=== PATIENT | female | born 1990 | race Caucasian/White ===

== ENCOUNTER → 2017-01-03 | Outpatient (CLI) | payer OTHER | END | disposition home or self-care (01) | LOC: LABWHC1 10:12 | DX: O99.212 Obesity complicating pregnancy, second trimester (principal); Z3A.24 24 weeks gestation of pregnancy | CPT/HCPCS: 36415; 82950; 83036; 84443; 86850 ==

== ENCOUNTER → 2017-02-15 | Outpatient (CLI) | payer OTHER ==
[2017-02-15 14:32] LABS: Glucose 3 Hour, Gest 118 mg/dL
== END | disposition home or self-care (01) ==
LOC: LABWHC1 08:22
PROVIDERS: ATTEND Nurse Practitioner
DX: O09.93 Supervision of high risk pregnancy, unspecified, third trimester (principal); O99.810 Abnormal glucose complicating pregnancy; Z3A.00 Weeks of gestation of pregnancy not specified
CPT/HCPCS: 36415; 82951; 82952

== ENCOUNTER 2018-11-04 08:49 | Inpatient (IN) | payer OTHER ==
[2018-11-04] MEDS ORDERED: ONDANSETRON 4 MG/2 ML VIAL IVP STA (09:13)
[2018-11-04] MEDS ORDERED: SODIUM CHLORIDE 0.9% 500 ML 500 ML IV STA (09:13)
[2018-11-04] MEDS ORDERED: SODIUM CHLORIDE 0.9% 1,000 ML IV STA (09:13)
--- NOTE | 2018-11-04 09:24 | ED ---
General Adult HPI - General Chief complaint: Nausea/Vomiting/Diarrhea Stated complaint: Urogenital & Vomiting Time Seen by Provider: 11/04/18 08:50 Source: patient, RN notes reviewed Mode of arrival: ambulatory Limitations: no limitations - History of Present Illness Initial comments: This is a 27-year-old female presents emergency Department complaining of a four-day history of nausea and vomiting. Patient states she does not any abdominal pain but she's been unable to keep any food down. Patient states on occasion she is able to keep down some water. Patient also states she would like her intrauterine contraceptive device removed. Patient states she has an appointment to have it removed tomorrow but she would like it removed today. Patient states it is a little uncomfortable but has been uncomfortable for quite a while. Patient denies any change in the discomfort. Patient denies any discharge. Patient denies any fever chills. Patient denies any dysuria hematuria urinary frequency. Patient states she took a test, she is not . - Related Data Home Medications Medication Instructions Recorded Confirmed Lisinopril [Zestril] 1.25 mg PO DAILY 11/04/18 11/04/18 Melatonin 5 mg PO HS PRN 11/04/18 11/04/18 Allergies Allergy/AdvReac Type Severity Reaction Status Date / Time No Known Allergies Allergy Verified 11/04/18 09:15 Review of Systems ROS Statement: Those systems with pertinent positive or pertinent negative responses have been documented in the HPI. ROS Other: All systems not noted in ROS Statement are negative. Past Medical History Past Medical History: Hearing Disorder / Deafness, Musculoskeletal Disorder Additional Past Medical History / Comment(s): [place], muscular dystrophy History of Any Multi-Drug Resistant Organisms: None Reported Past Surgical History: Ear Surgery, Tonsillectomy Past Psychological History: No Psychological Hx Reported, Depression Smoking Status: Current every day smoker Past Alcohol Use History: Occasional Past Drug Use History: None Reported General Exam - General Exam Comments Initial Comments: GENERAL: Patient is well-developed and well-nourished. Patient is nontoxic and well- hydrated and is in mild distress. ENT: Neck is soft and supple. No significant lymphadenopathy is noted. Oropharynx is clear. Moist mucous membranes. Neck has full range of motion without eliciting any pain. were felt. EYES: The sclera were anicteric and conjunctiva were pink and moist. Extraocular movements were intact and pupils were equal round and reactive to light. Eyelids were unremarkable. PULMONARY: Unlabored respirations. Good breath sounds bilaterally. No audible rales rhonchi or wheezing was noted. CARDIOVASCULAR: There is a regular rate and rhythm without any murmurs gallops or rubs. ABDOMEN: Soft and nontender with normal bowel sounds. No palpable organomegaly was noted. There is no palpable pulsatile mass. SKIN: Skin is clear with no lesions or rashes and otherwise unremarkable. NEUROLOGIC: Patient is alert and oriented x3. Cranial nerves II through XII are grossly intact. Motor and sensory are also intact. Normal speech, volume and content. Symmetrical smile. MUSCULOSKELETAL: Normal extremities with adequate strength and full range of motion. No lower extremity swelling or edema. No calf tenderness. LYMPHATICS: No significant lymphadenopathy is noted PSYCHIATRIC: Normal psychiatric evaluation. Limitations: no limitations Course Vital Signs 11/04/18 11/04/18 08:50 11:19 Temperature 97.9 F Pulse Rate 90 84 Respiratory 18 18 Rate Blood Pressure 148/101 132/94 O2 Sat by Pulse 98 100 Oximetry Medical Decision Making - Medical Decision Making Patient is in DKA. Patient received 2-1/2 L of fluid to the emergency department. I also started the patient on insulin drip after I gave the patient insulin bolus Spoke with Dr. Regan she agreed to admit the patient admitted the patient I wrote admitting orders. - Lab Data Result diagrams: 11/04/18 09:37 11/04/18 09:37 Lab Results 11/04/18 11/04/18 11/04/18 Range/Units 09:37 09:37 09:37 WBC 11.6 H (3.8-10.6) k/uL RBC 5.81 H (3.80-5.40) m/uL Hgb 16.7 H (11.4-16.0) gm/dL Hct 49.4 H (34.0-46.0) % MCV 84.9 (80.0-100.0) fL MCH 28.8 (25.0-35.0) pg MCHC 33.9 (31.0-37.0) g/dL RDW 16.4 H (11.5-15.5) % Plt Count 296 (150-450) k/uL Neutrophils % 66 % Lymphocytes % 23 % Monocytes % 6 % Eosinophils % 1 % Basophils % 1 % Neutrophils # 7.7 (1.3-7.7) k/uL Lymphocytes # 2.7 (1.0-4.8) k/uL Monocytes # 0.8 (0-1.0) k/uL Eosinophils # 0.2 (0-0.7) k/uL Basophils # 0.1 (0-0.2) k/uL Anisocytosis Slight Sodium 134 L (137-145) mmol/L Potassium 4.8 (3.5-5.1) mmol/L Chloride 99 (98-107) mmol/L Carbon Dioxide 8 L* (22-30) mmol/L Anion Gap 27 mmol/L BUN 9 (7-17) mg/dL Creatinine 0.49 L (0.52-1.04) mg/dL Est GFR (CKD-EPI)AfAm >90 (>60 ml/min/1.73 sqM) Est GFR (CKD-EPI)NonAf >90 (>60 ml/min/1.73 sqM) Glucose 386 H (74-99) mg/dL POC Glucose (mg/dL) (75-99) mg/dL POC Glu Car Barn Laborer ID Calcium 9.5 (8.4-10.2) mg/dL Total Bilirubin 1.3 (0.2-1.3) mg/dL AST 43 H (14-36) U/L ALT 55 H (9-52) U/L Alkaline Phosphatase 139 H (38-126) U/L Total Protein 8.5 H (6.3-8.2) g/dL Albumin 5.0 (3.5-5.0) g/dL Amylase 36 (30-110) U/L Lipase 90 (23-300) U/L Urine Color Urine Appearance (Clear) Urine pH (5.0-8.0) Ur Specific [place] (1.001-1.035) Urine Protein (Negative) Urine Glucose (UA) (Negative) Urine Ketones (Negative) Urine Blood (Negative) Urine Nitrite (Negative) Urine Bilirubin (Negative) Urine Urobilinogen (<2.0) mg/dL Ur Leukocyte Esterase (Negative) Urine RBC (0-5) /hpf Urine WBC (0-5) /hpf Ur Squamous Epith Cells (0-4) /hpf Urine Bacteria (None) /hpf Urine Mucus (None) /hpf Urine Yeast (Budding) (None) /hpf Urine HCG, Qual Not Detected (Not Detectd) Acetone, Qual (Negative) 11/04/18 11/04/18 11/04/18 Range/Units 09:37 09:37 11:32 WBC (3.8-10.6) k/uL RBC (3.80-5.40) m/uL Hgb (11.4-16.0) gm/dL Hct (34.0-46.0) % MCV (80.0-100.0) fL MCH (25.0-35.0) pg MCHC (31.0-37.0) g/dL RDW (11.5-15.5) % Plt Count (150-450) k/uL Neutrophils % % Lymphocytes % % Monocytes % % Eosinophils % % Basophils % % Neutrophils # (1.3-7.7) k/uL Lymphocytes # (1.0-4.8) k/uL Monocytes # (0-1.0) k/uL Eosinophils # (0-0.7) k/uL Basophils # (0-0.2) k/uL Anisocytosis Sodium (137-145) mmol/L Potassium (3.5-5.1) mmol/L Chloride (98-107) mmol/L Carbon Dioxide (22-30) mmol/L Anion Gap mmol/L BUN (7-17) mg/dL Creatinine (0.52-1.04) mg/dL Est GFR (CKD-EPI)AfAm (>60 ml/min/1.73 sqM) Est GFR (CKD-EPI)NonAf (>60 ml/min/1.73 sqM) Glucose (74-99) mg/dL POC Glucose (mg/dL) 328 H (75-99) mg/dL POC Glu Car Barn Laborer ID Becky Bradley Calcium (8.4-10.2) mg/dL Total Bilirubin (0.2-1.3) mg/dL AST (14-36) U/L ALT (9-52) U/L Alkaline Phosphatase (38-126) U/L Total Protein (6.3-8.2) g/dL Albumin (3.5-5.0) g/dL Amylase (30-110) U/L Lipase (23-300) U/L Urine Color Light Yellow Urine Appearance Clear (Clear) Urine pH 5.5 (5.0-8.0) Ur Specific [place] 1.028 (1.001-1.035) Urine Protein 1+ H (Negative) Urine Glucose (UA) 4+ H (Negative) Urine Ketones 4+ H (Negative) Urine Blood Small H (Negative) Urine Nitrite Negative (Negative) Urine Bilirubin Negative (Negative) Urine Urobilinogen 2.0 (<2.0) mg/dL Ur Leukocyte Esterase Trace H (Negative) Urine RBC 6 H (0-5) /hpf Urine WBC 6 H (0-5) /hpf Ur Squamous Epith Cells 1 (0-4) /hpf Urine Bacteria Rare H (None) /hpf Urine Mucus Rare H (None) /hpf Urine Yeast (Budding) Rare H (None) /hpf Urine HCG, Qual (Not Detectd) Acetone, Qual Positive (Negative) Disposition Clinical Impression: Diabetic ketoacidosis, IUD complication Disposition: ADMITTED IP TO THIS HOSP Referrals: Jeromy Dupont MD [Primary Care Provider] - 1-2 days Time of Disposition: 12:06
[2018-11-04 10:01] LABS: Anisocytosis Slight; Basophils # (A) 0.1 k/uL (0-0.2); Basophils % (A) 1 %; Eosinophils # (A) 0.2 k/uL (0-0.7); Eosinophils % (A) 1 %; HCT 49.4 % (34.0-46.0); HGB 16.7 gm/dL (11.4-16.0); Lymphocytes # (A) 2.7 k/uL (1.0-4.8); Lymphocytes % (A) 23 %; MCH 28.8 pg (25.0-35.0); MCHC 33.9 g/dL (31.0-37.0); MCV 84.9 fL (80.0-100.0); Mean Platelet Volume 8.3; Monocytes # (A) 0.8 k/uL (0-1.0); Monocytes % (A) 6 %; Neutrophils # (A) 7.7 k/uL (1.3-7.7); Neutrophils % (A) 66 %; Platelet Count 296 k/uL (150-450); RBC 5.81 m/uL (3.80-5.40); RDW 16.4 % (11.5-15.5); WBC 11.6 k/uL (3.8-10.6)
[2018-11-04 10:02] LABS: African American GFR (CKD) >90 (>60 ml/min/1.73 sqM); Amylase 36 U/L (30-110); Anion Gap 27 mmol/L; Blood Urea Nitrogen 9 mg/dL (7-17); Calcium 9.5 mg/dL (8.4-10.2); Chloride 99 mmol/L (98-107); Glucose 386 mg/dL (74-99); Sodium 134 mmol/L (137-145); Total Bilirubin 1.3 mg/dL (0.2-1.3); Total Protein 8.5 g/dL (6.3-8.2)
[2018-11-04 10:03] LABS: Appearance,Urine Clear (Clear); Bacteria,Urine Rare /hpf; Bilirubin,Urine Negative (Negative); Blood,Urine Small (Negative); Budding Yeast,Urine Rare /hpf; Color,Urine Light Yellow; Glucose,Urine (UA) 4+ (Negative); Leukocyte Esterase,Urine Trace (Negative); Mucus,Urine Rare /hpf; Nitrite,Urine Negative (Negative); PH, Urine 5.5 (5.0-8.0); Protein,Urine 1+ (Negative); RBC,Urine 6 /hpf (0-5); Specific Gravity,Urine 1.028 (1.001-1.035); Squamous Epithelial Cell,Urine 1 /hpf (0-4); WBC,Urine 6 /hpf (0-5)
[2018-11-04 10:06] LABS: Ketones,Urine 4+ (Negative)
[2018-11-04 10:16] LABS: ALT 55 U/L (9-52); AST 43 U/L (14-36); Alkaline Phosphatase 139 U/L (38-126); Carbon Dioxide 8 mmol/L (22-30); Potassium 4.8 mmol/L (3.5-5.1)
[2018-11-04] MEDS ORDERED: ACETAMINOPHEN TAB 500 MG TAB PO STA (10:21)
[2018-11-04] MEDS ORDERED: Magnesium Replacement Protocol 1 EACH MISC MISCELLANE PRN (10:34)
[2018-11-04] MEDS ORDERED: Potassium Replacement Protocol 1 EACH MISC MISCELLANE PRN (10:34)
[2018-11-04] MEDS ORDERED: INSULIN REGULAR BOLUS (FROM DRIP BAG) IV ONE (10:34)
[2018-11-04] MEDS ORDERED: INSULIN REGULAR 100 UNIT in SODIUM CHLORIDE 0.9% 100 ML IV SCH (10:45)
[2018-11-04] MEDS: SODIUM CHLORIDE 0.9% 1,000 ML IV SCH ×2 (11:27→14:38)
[2018-11-04 11:34] LABS: Glucose,Whole Blood 328 mg/dL (75-99)
[2018-11-04] MEDS ORDERED: SODIUM CHLORIDE 0.9% 1,000 ML IV ONE ×2 (11:43→12:52)
[2018-11-04] MEDS ORDERED: SODIUM CHLORIDE 0.9% 1,000 ML IV SCH (12:15)
[2018-11-04 12:19] LABS: Glucose,Whole Blood 274 mg/dL (75-99)
[2018-11-04] MEDS: D5-0.45% NACL WITH KCL 20MEQ/L 1,000 ML IV SCH ×2 (12:37→18:52)
[2018-11-04 13:22] LABS: Glucose,Whole Blood 191 mg/dL (75-99)
--- NOTE | 2018-11-04 13:48 | P.HPIM ---
History of Present Illness H&P Date: 11/04/18 Chief Complaint: Nausea and vomiting This is a 27-year-old white female who reported to the emergency room because of 4 days history of nausea and vomiting. She states that she could not keep her food or drinks down secondary to nausea and vomiting. She has vomited several times. She has been feeling weak and lethargic and dizzy. She denies chest pain or shortness of breath. She denies subjective fever but reports some burning sensation upon urination. She denies hematuria. She denies cough or wheezing. She denies any change in muscular weakness. She has been breathing harder than usual but is not specifically short of breath. She does not have history of known diabetes. At the time of examination patient is in bed, does not appear to be in distress. Review of Systems 10 systems reviewed, pertinent positive and negative findings as in HPI, positive for nausea and vomiting, no chest pain. Past Medical History Past Medical History: Hearing Disorder / Deafness, Musculoskeletal Disorder Additional Past Medical History / Comment(s): [place], muscular dystrophy History of Any Multi-Drug Resistant Organisms: None Reported Past Surgical History: Ear Surgery, Tonsillectomy Past Psychological History: No Psychological Hx Reported, Depression Smoking Status: Current every day smoker Past Alcohol Use History: Occasional Past Drug Use History: None Reported Medications and Allergies Home Medications Medication Instructions Recorded Confirmed Type Lisinopril [Zestril] 1.25 mg PO DAILY 11/04/18 11/04/18 History Melatonin 5 mg PO HS PRN 11/04/18 11/04/18 History Allergies Allergy/AdvReac Type Severity Reaction Status Date / Time No Known Allergies Allergy Verified 11/04/18 09:15 Physical Exam Vitals: Vital Signs Temp Pulse Resp BP Pulse Ox 11/04/18 11:19 84 18 132/94 100 11/04/18 08:50 97.9 F 90 18 148/101 98 Intake and Output 11/03/18 11/04/18 11/04/18 22:59 06:59 14:59 Other: Weight 146.51 kg Constitutional: No acute distress, conversant, pleasant Eyes: Anicteric sclerae, moist conjunctiva ENMT: NC/AT,Oropharynx clear Neck:Supple, FROM, no masses, or JVD Lungs: Clear to auscultation, Clear to percussion, Normal respiratory effort, no accessory muscle use Cardiovascular: Heart regular in rate and rhythm, No murmurs, gallops, or rubs no peripheral edema Abdominal: Soft Nontender, nom distended, no guarding, no rebound or rigidity, Normoactive bowel sounds No hepatomegaly, No splenomegaly, No palpable mass, obese. Skin: Normal temperature, tone, texture, turgor, No induration No subcutaneous nodules, No rash, lesions, No ulcers Extremities:No digital cyanosis No clubbing, Pedal pulses intact and symmetrical Radial pulses intact and symmetrical Normal gait and station, No calf tenderness Psychiatric: Alert and oriented to person, place and time, Appropriate affect Intact judgement Neuro: Muscles Strength 5/5 in all 4 extremities, Sensation to light touch grossly present throughout, Cranial nerves II-XII grossly intact. No focal sensory deficits Results CBC & Chem 7: 11/04/18 09:37 11/04/18 09:37 Labs: Abnormal Lab Results - Last 24 Hours (Table) 11/04/18 11/04/18 11/04/18 Range/Units 09:37 09:37 09:37 WBC 11.6 H (3.8-10.6) k/uL RBC 5.81 H (3.80-5.40) m/uL Hgb 16.7 H (11.4-16.0) gm/dL Hct 49.4 H (34.0-46.0) % RDW 16.4 H (11.5-15.5) % Sodium 134 L (137-145) mmol/L Carbon Dioxide 8 L* (22-30) mmol/L Creatinine 0.49 L (0.52-1.04) mg/dL Glucose 386 H (74-99) mg/dL POC Glucose (mg/dL) (75-99) mg/dL AST 43 H (14-36) U/L ALT 55 H (9-52) U/L Alkaline Phosphatase 139 H (38-126) U/L Total Protein 8.5 H (6.3-8.2) g/dL Urine Protein 1+ H (Negative) Urine Glucose (UA) 4+ H (Negative) Urine Ketones 4+ H (Negative) Urine Blood Small H (Negative) Ur Leukocyte Esterase Trace H (Negative) Urine RBC 6 H (0-5) /hpf Urine WBC 6 H (0-5) /hpf Urine Bacteria Rare H (None) /hpf Urine Mucus Rare H (None) /hpf Urine Yeast (Budding) Rare H (None) /hpf 11/04/18 11/04/18 11/04/18 Range/Units 11:32 12:17 13:20 WBC (3.8-10.6) k/uL RBC (3.80-5.40) m/uL Hgb (11.4-16.0) gm/dL Hct (34.0-46.0) % RDW (11.5-15.5) % Sodium (137-145) mmol/L Carbon Dioxide (22-30) mmol/L Creatinine (0.52-1.04) mg/dL Glucose (74-99) mg/dL POC Glucose (mg/dL) 328 H 274 H 191 H (75-99) mg/dL AST (14-36) U/L ALT (9-52) U/L Alkaline Phosphatase (38-126) U/L Total Protein (6.3-8.2) g/dL Urine Protein (Negative) Urine Glucose (UA) (Negative) Urine Ketones (Negative) Urine Blood (Negative) Ur Leukocyte Esterase (Negative) Urine RBC (0-5) /hpf Urine WBC (0-5) /hpf Urine Bacteria (None) /hpf Urine Mucus (None) /hpf Urine Yeast (Budding) (None) /hpf Assessment and Plan Plan: 1. Acute DKA without coma and diabetes mellitus likely type I: Continue IV fluid resuscitation, normal saline for now, pending pH, continue insulin drip per DKA protocol. 2. Newly diagnosed diabetes, likely type I: Place on insulin drip, she will need insulin at the time of discharge. 3. Anion gap metabolic acidosis: Bicarbonate of 8, continue IV fluids and IV insulin, consider bicarbonate-containing solution pH is below 7. 5. Muscular dystrophy of unknown type: Conservative treatment. 6. essential hypertension: Continue lisinopril 7. Morbid obesity: BMI 50.6, supportive care 8. History of chronic left bundle branch block: No chest pain, monitor on telemetry. 9. Intrauterine device: Follow-up as an outpatient at [facility]. 10. Mild elevation in LFTs likely secondary to hypoperfusion: IV fluid resuscitation, recheck. 11. DVT prophylaxis: SCDs Admit to inpatient ICU Disposition: Home in 2-3 days
[2018-11-04] MEDS ORDERED: MELATONIN 5 MG TABLET PO PRN (13:55)
--- NOTE | 2018-11-04 14:17 | XR ---
EXAMINATION TYPE: XR chest 1V portable DATE OF EXAM: 11/04/2018 COMPARISON: 12/15/2014 HISTORY: Tachypnea TECHNIQUE: Single frontal view of the chest is obtained. FINDINGS: Heart and mediastinum are normal. Lungs are clear of infiltrate. Diaphragm is normal. Bony thorax is normal. There are chest leads. There is small linear density in the right midlung. IMPRESSION: Subsegmental atelectasis in the right lower lobe. This is a change compared to old exam. Normal heart.
[2018-11-04 14:23] LABS: Glucose,Whole Blood 177 mg/dL (75-99)
[2018-11-04 14:31] LABS: Phosphorus 1.2 mg/dL (2.5-4.5); Potassium 2.8 mmol/L (3.5-5.1)
[2018-11-04] MEDS: ACETAMINOPHEN TAB 500 MG TAB PO PRN ×2 (14:43→22:01)
[2018-11-04] MEDS: INSULIN REGULAR 100 UNIT in SODIUM CHLORIDE 0.9% 100 ML IV SCH (15:05)
[2018-11-04] MEDS: POTASSIUM CHLORIDE ER 20 MEQ TAB.ER PO SCH ×3 (15:08→17:03)
[2018-11-04 15:53] LABS: Glucose,Whole Blood 144 mg/dL (75-99)
[2018-11-04 16:24] LABS: Glucose,Whole Blood 128 mg/dL (75-99)
[2018-11-04 17:07] LABS: Glucose,Whole Blood 177 mg/dL (75-99)
[2018-11-04 17:58] LABS: Glucose,Whole Blood 220 mg/dL (75-99)
--- NOTE | 2018-11-04 18:38 | CONS ---
CONSULTATION PULMONARY/CRITICAL CARE CONSULTATION: DATE OF SERVICE: November 04, 2018 HISTORY OF PRESENT ILLNESS: This is a 27-year-old female who presents to the emergency department with complaints of 4 or 5 days of increasing nausea, vomiting, weakness and abdominal cramping. She apparently has not been able to keep much food or any food down, even liquids were difficult to tolerate. The patient was evaluated in the emergency room and was found to have diabetic ketoacidosis. She has no history of diabetes in the past. She never was told that she had diabetes. She does have a father who had diabetes. She denied any fever, chills. There was no chest pain or chest discomfort. She apparently recently took a test that was negative. She denied any urinary complaints. She denied any shortness of breath. HOME MEDICATIONS: Apparently included lisinopril and melatonin. ALLERGIES: Denied. PAST MEDICAL HISTORY: Includes deafness, muscular dystrophy, left bundle branch block, and chronic tobacco dependence. She does drink occasionally. SURGICAL HISTORY: Includes tonsillectomy and ear surgery. SOCIAL HISTORY: Positive for ongoing tobacco use. She drinks occasionally. Denies any illicit drug use. FAMILY HISTORY: Positive for father and a grandfather with diabetes. She does not think they take insulin but rather takes the pills for diabetes. Currently, her most recent bicarbonate concentration was 8 mEq/L, her glucose was 144 mg/dL and her anion gap was 27. The patient is currently not receiving any supplemental oxygen. Her IV is D5 0.45 at 150. Insulin drip is at 7.3 units an hour. A repeat set of labs were just recently sent. REVIEW OF SYSTEMS: CONSTITUTIONAL weakness. NEUROLOGIC negative. HEENT negative. CARDIOVASCULAR negative. PULMONARY negative. GI nausea, vomiting, decreased appetite. negative. RHEUMATOLOGIC negative. IMMUNOLOGIC negative. ENDOCRINOLOGIC negative. DERMATOLOGIC negative. PHYSICAL EXAMINATION: VITAL SIGNS: Current vital signs are reviewed. Temperature 97.6. Heart rate 100. Respiratory rate 22, blood pressure 123/77, mean 92 and saturations on room air 98%. GENERAL: Appears in no acute distress. HEENT examination is grossly unremarkable. Mucous membranes are moist. No oral lesions. NECK: Supple. Full range of motion. No adenopathy. Neck veins are flat. CARDIOVASCULAR examination reveals regular rhythm and rate. S1, S2 normal. Heart rate about 100 beats per minute. No murmur. LUNGS: Reveal clear breath sounds. No wheezes or rhonchi. ABDOMEN: Soft. Bowel sounds are heard. No masses or tenderness. EXTREMITIES are intact. No cyanosis, clubbing, or edema. SKIN: Without rash. NEUROLOGIC examination is brief but nonfocal. A chest x-ray is essentially normal. Maybe some minimal basilar atelectasis. LAB DATA: Reviewed. White count 11.6, hemoglobin 16.7, hematocrit 49.4, platelet count normal. Sodium 138, potassium 2.8, chloride 108. CO2 9, anion gap 21, BUN and creatinine were 7 and 0.49. Current glucose is 144. Calcium 9.5, phosphorus is 1.2. AST 43, ALT 55, total protein 8.5. Urine shows 1+ protein, 4+ glucose, 4+ ketones. Small amount of blood. Leukocyte esterase was trace positive, WBCs were 6, bacteria rare. Urine HCG was negative. Acetone was positive. Medications are reviewed. ASSESSMENT: 1. New onset diabetes with diabetic ketoacidosis. 2. History of muscular dystrophy. 3. Deafness, currently wearing hearing aids. 4. History of left bundle branch block. 5. Occasional alcohol use. 6. Chronic tobacco dependence. PLAN: The patient is receiving the typical DKA protocol. She seemed to be responded very nicely. She is feeling better. We will continue her here in ICU. We will continue to watch the bicarbonate concentration, the glucose concentration and the anion gap. Repeat set of labs were just recently stent. No additional recommendations are made. She will need obviously to see an international organizer in the near future. We will continue to follow up on that urine. She denies any urinary complaints, though. MMODL / IJN: [id number] / [facility]am
[2018-11-04 18:56] LABS: Glucose,Whole Blood 253 mg/dL (75-99)
[2018-11-04] MEDS ORDERED: POTASSIUM CHLORIDE 2 MEQ/ML 20 ML VIAL IVPB STA (19:32)
--- NOTE | 2018-11-04 19:44 | P.PN ---
Progress Note - Text Progress Note Date: 11/04/18 Arrived to the hospital for my shift. During sign-out, was informed of a patient in the ICU. Opened the chart for review where I noticed the patient's potassium of 2.8. Immediately contacted the ICU nurse to hold the Insulin infusion. Ordered K+ 40 mEq IVPB along with Stat BMP and VBG, amongst others. Will continue to follow patient closely.
[2018-11-04 19:45] LABS: African American GFR (CKD) >90 (>60 ml/min/1.73 sqM); Anion Gap 15 mmol/L; Blood Urea Nitrogen 6 mg/dL (7-17); Carbon Dioxide 13 mmol/L (22-30); Chloride 105 mmol/L (98-107); Glucose 232 mg/dL (74-99); Magnesium 1.6 mg/dL (1.6-2.3); Phosphorus 1.5 mg/dL (2.5-4.5); Potassium 3.5 mmol/L (3.5-5.1); Sodium 133 mmol/L (137-145)
[2018-11-04 19:51] LABS: VBG PH 7.22 (7.31-7.41)
[2018-11-04 19:52] LABS: Glucose,Whole Blood 223 mg/dL (75-99)
[2018-11-04] MEDS ORDERED: POTASSIUM CHLORIDE 20 MEQ in WATER FOR INJECTION 1 100ML.BAG IVPB SCH (20:00)
[2018-11-04] MEDS ORDERED: POTASSIUM CHLORIDE ER 20 MEQ TAB.ER PO STA (20:10)
[2018-11-04] MEDS ORDERED: POTASSIUM CHLORIDE 10 MEQ in WATER FOR INJECTION 1 100ML.BAG IVPB ONE (20:10)
[2018-11-04] MEDS ORDERED: Phosphorus Replacement Protoco 1 EACH MISC MISCELLANE PRN (20:11)
[2018-11-04] MEDS: MAGNESIUM SULFATE-D5W PMX 1 GM in DEXTROSE/WATER 1 100ML.BAG IVPB SCH ×2 (20:34→21:35)
[2018-11-04 21:13] LABS: Glucose,Whole Blood 305 mg/dL (75-99)
[2018-11-04 22:07] LABS: Glucose,Whole Blood 349 mg/dL (75-99)
[2018-11-04] MEDS: POTASSIUM PHOSPHATE 10 MMOL in SODIUM CHLORIDE 0.9% 250 ML IV SCH (22:41)
[2018-11-04 23:05] LABS: Glucose,Whole Blood 302 mg/dL (75-99)
[2018-11-05 00:13] LABS: Glucose,Whole Blood 273 mg/dL (75-99)
[2018-11-05] MEDS: POTASSIUM PHOSPHATE 10 MMOL in SODIUM CHLORIDE 0.9% 250 ML IV SCH ×6 (00:46→23:44)
[2018-11-05 00:50] LABS: African American GFR (CKD) >90 (>60 ml/min/1.73 sqM); Anion Gap 12 mmol/L; Blood Urea Nitrogen 4 mg/dL (7-17); Calcium 8.3 mg/dL (8.4-10.2); Carbon Dioxide 14 mmol/L (22-30); Chloride 106 mmol/L (98-107); Glucose 286 mg/dL (74-99); Magnesium 2.1 mg/dL (1.6-2.3); Phosphorus 1.6 mg/dL (2.5-4.5); Potassium 3.8 mmol/L (3.5-5.1); Sodium 132 mmol/L (137-145)
[2018-11-05 01:08] LABS: Glucose,Whole Blood 278 mg/dL (75-99)
[2018-11-05] MEDS: D5-0.45% NACL WITH KCL 20MEQ/L 1,000 ML IV SCH ×2 (01:33→08:25)
[2018-11-05 02:04] LABS: Glucose,Whole Blood 248 mg/dL (75-99)
[2018-11-05 04:11] LABS: Glucose,Whole Blood 239 mg/dL (75-99)
[2018-11-05 04:11] LABS: Glucose,Whole Blood 239 mg/dL (75-99)
[2018-11-05 04:34] LABS: Basophils # (A) 0.1 k/uL (0-0.2); Basophils % (A) 1 %; Eosinophils # (A) 0.2 k/uL (0-0.7); Eosinophils % (A) 3 %; HCT 42.2 % (34.0-46.0); HGB 14.6 gm/dL (11.4-16.0); Lymphocytes # (A) 2.4 k/uL (1.0-4.8); Lymphocytes % (A) 31 %; MCH 28.9 pg (25.0-35.0); MCHC 34.6 g/dL (31.0-37.0); MCV 83.7 fL (80.0-100.0); Mean Platelet Volume 7.9; Monocytes # (A) 0.5 k/uL (0-1.0); Monocytes % (A) 6 %; Neutrophils # (A) 4.6 k/uL (1.3-7.7); Neutrophils % (A) 58 %; Platelet Count 230 k/uL (150-450); RBC 5.04 m/uL (3.80-5.40); WBC 7.9 k/uL (3.8-10.6)
[2018-11-05] MEDS: INSULIN REGULAR 100 UNIT in SODIUM CHLORIDE 0.9% 100 ML IV SCH ×3 (04:48→12:12)
[2018-11-05 04:49] LABS: ALT 44 U/L (9-52); AST 29 U/L (14-36); African American GFR (CKD) >90 (>60 ml/min/1.73 sqM); Albumin 3.3 g/dL (3.5-5.0); Alkaline Phosphatase 107 U/L (38-126); Anion Gap 11 mmol/L; Blood Urea Nitrogen 3 mg/dL (7-17); Calcium 8.4 mg/dL (8.4-10.2); Carbon Dioxide 15 mmol/L (22-30); Chloride 108 mmol/L (98-107); Glucose 222 mg/dL (74-99); Phosphorus 1.4 mg/dL (2.5-4.5); Potassium 3.9 mmol/L (3.5-5.1); Sodium 134 mmol/L (137-145); Total Bilirubin 0.9 mg/dL (0.2-1.3); Total Protein 5.9 g/dL (6.3-8.2)
[2018-11-05 05:23] LABS: Glucose,Whole Blood 202 mg/dL (75-99)
[2018-11-05 06:06] LABS: Glucose,Whole Blood 201 mg/dL (75-99)
[2018-11-05 07:04] LABS: Glucose,Whole Blood 184 mg/dL (75-99)
[2018-11-05 08:29] LABS: Glucose,Whole Blood 252 mg/dL (75-99)
[2018-11-05 08:41] LABS: African American GFR (CKD) >90 (>60 ml/min/1.73 sqM); Anion Gap 12 mmol/L; Blood Urea Nitrogen 3 mg/dL (7-17); Calcium 8.4 mg/dL (8.4-10.2); Carbon Dioxide 16 mmol/L (22-30); Chloride 108 mmol/L (98-107); Glucose 250 mg/dL (74-99); Magnesium 1.8 mg/dL (1.6-2.3); Phosphorus 1.8 mg/dL (2.5-4.5); Potassium 3.9 mmol/L (3.5-5.1); Sodium 136 mmol/L (137-145)
[2018-11-05] MEDS ORDERED: LISINOPRIL 2.5 MG TAB PO SCH (09:00)
[2018-11-05 10:08] LABS: Glucose,Whole Blood 243 mg/dL (75-99)
[2018-11-05 10:08] LABS: Glucose,Whole Blood 250 mg/dL (75-99)
[2018-11-05 10:55] LABS: Hemoglobin A1C 11.5 % (4.0-6.0)
[2018-11-05 11:03] LABS: Glucose,Whole Blood 237 mg/dL (75-99)
[2018-11-05 11:29] VITALS: BMI 45.2
[2018-11-05 12:08] LABS: Glucose,Whole Blood 250 mg/dL (75-99)
[2018-11-05] MEDS: INSULIN DETEMIR (LEVEMIR) 100 UNIT/ML SYR SQ SCH (12:24)
[2018-11-05] MEDS: INSULIN ASPART (NovoLOG) 100 UNIT/ML VIAL SQ SCH ×5 (12:52→20:42)
[2018-11-05 13:18] LABS: African American GFR (CKD) >90 (>60 ml/min/1.73 sqM); Anion Gap 12 mmol/L; Blood Urea Nitrogen <2 mg/dL (7-17); Carbon Dioxide 17 mmol/L (22-30); Chloride 105 mmol/L (98-107); Glucose 214 mg/dL (74-99); Phosphorus 2.2 mg/dL (2.5-4.5); Potassium 4.2 mmol/L (3.5-5.1); Sodium 134 mmol/L (137-145)
[2018-11-05] MEDS ORDERED: D5-0.45% NACL WITH KCL 20MEQ/L 1,000 ML IV SCH (13:25)
[2018-11-05 15:17] LABS: Glucose,Whole Blood 275 mg/dL (75-99)
[2018-11-05 16:24] LABS: Potassium 3.4 mmol/L (3.5-5.1)
--- NOTE | 2018-11-05 16:32 | P.PN ---
Subjective Progress Note Date: 11/05/18 On 11/05/2018 I'm seeing this patient for a follow-up. Doing well. No new complaints. She is a new onset diabetes mellitus who came in with a DKA. The patient is receiving diabetes education. This morning, the patient is still on insulin drip running at 11 units an hour. The most recent blood work shows a serum bicarb of 18 with anion gap of 10 and the patient has no specific complaints in the most recent blood sugar is at 275. The patient is receiving D5 half-normal saline and the patient is also ready to proceed with oral diet. No other Occasions for now. No significant left-sided balance. Potassium level is at 3.4. Objective - Vital Signs Vital signs: Vital Signs Temp 97.8 F 11/05/18 16:00 Pulse 100 11/05/18 16:00 Resp 14 11/05/18 16:00 BP 125/82 11/05/18 16:00 Pulse Ox 97 11/05/18 16:00 Intake & Output 11/04/18 11/05/18 11/05/18 18:59 06:59 18:59 Intake Total 804.770 8806.992 2536.923 Output Total 550 300 500 Balance 197.204 5081.992 2036.923 Weight 146.51 kg 131.1 kg 131.1 kg Intake: IV 600 2875 1675 D5-0.45% NaCl with KCl 600 1950 1050 20Meq/l 1,000 ml @ 150 mls/hr IV .Q6H40M [facility] Rx# :[id number] Magnesium Sulfate-D5w Pmx 200 1 gm In Dextrose/Water 1 100ml.bag @ 100 mls/hr IVPB Q1H [facility] Rx#: [id number] Potassium Chloride 10 meq 100 In Water For Injection 1 100ml.bag @ 100 mls/hr IVPB ONCE ONE Rx#: [id number] Potassium Phosphate 10 625 625 mmol In Sodium Chloride 0 .9% 250 ml @ 125 mls/hr IV Q2H [facility] Rx#:[id number] Intake, IV Titration 17.008 83.992 61.923 Amount Insulin Regular 100 unit 17.008 83.992 61.923 In Sodium Chloride 0.9% 100 ml @ 0.1 UNITS/KG/HR 14.798 mls/hr IV .Q6H50M [facility] Rx#:[id number] Oral 350 1080 800 Output: Urine 550 300 500 Other: Voiding Method Bedside Commode Toilet Toilet # Voids 1 1 # Bowel Movements 1 - Exam The patient appeared well nourished and normally developed. She is morbidly obese and she carries a BMI of 45.3. Vital signs as documented. Head exam is unremarkable. No scleral icterus or corneal arcus noted. Neck is without jugular venous distension, thyromegaly, or carotid bruits. Carotid upstrokes are brisk bilaterally. Lungs are clear to auscultation and percussion. Cardiac exam reveals the PMI to be normally sized and situated. Rhythm is regular. First and second heart sounds normal. No murmurs, rubs or gallops. Abdominal exam reveals normal bowel sounds, no masses, no organomegaly and no aortic enlargement. Extremities are nonedematous and both femoral and pedal pulses are normal.Examination of the skin revealed no evidence of significant rashes, suspicious appearing nevi or other concerning lesions. Neurologically the patient has some motor weakness in all 4 extremities. For the most part the cranial nerves are intact and there is no focal neurological deficit at this point in time. - Labs CBC & Chem 7: 11/05/18 04:01 11/05/18 15:41 Labs: Abnormal Lab Results - Last 24 Hours (Table) 11/04/18 11/04/18 11/04/18 Range/Units 14:05 17:05 17:55 VBG pH (7.31-7.41) VBG pCO2 (37-51) mmHg VBG HCO3 (24-28) mmol/L Sodium (137-145) mmol/L Potassium (3.5-5.1) mmol/L Chloride (98-107) mmol/L Carbon Dioxide (22-30) mmol/L BUN (7-17) mg/dL Creatinine (0.52-1.04) mg/dL Glucose (74-99) mg/dL POC Glucose (mg/dL) 177 H 220 H (75-99) mg/dL Hemoglobin A1c 11.5 H (4.0-6.0) % Calcium (8.4-10.2) mg/dL Phosphorus (2.5-4.5) mg/dL Total Protein (6.3-8.2) g/dL Albumin (3.5-5.0) g/dL 11/04/18 11/04/18 11/04/18 Range/Units 18:54 19:08 19:35 VBG pH 7.22 L (7.31-7.41) VBG pCO2 35 L (37-51) mmHg VBG HCO3 14 L (24-28) mmol/L Sodium 133 L (137-145) mmol/L Potassium (3.5-5.1) mmol/L Chloride (98-107) mmol/L Carbon Dioxide 13 L (22-30) mmol/L BUN 6 L (7-17) mg/dL Creatinine 0.41 L (0.52-1.04) mg/dL Glucose 232 H (74-99) mg/dL POC Glucose (mg/dL) 253 H (75-99) mg/dL Hemoglobin A1c (4.0-6.0) % Calcium (8.4-10.2) mg/dL Phosphorus 1.5 L (2.5-4.5) mg/dL Total Protein (6.3-8.2) g/dL Albumin (3.5-5.0) g/dL 11/04/18 11/04/18 11/04/18 Range/Units 19:48 21:10 22:04 VBG pH (7.31-7.41) VBG pCO2 (37-51) mmHg VBG HCO3 (24-28) mmol/L Sodium (137-145) mmol/L Potassium (3.5-5.1) mmol/L Chloride (98-107) mmol/L Carbon Dioxide (22-30) mmol/L BUN (7-17) mg/dL Creatinine (0.52-1.04) mg/dL Glucose (74-99) mg/dL POC Glucose (mg/dL) 223 H 305 H 349 H (75-99) mg/dL Hemoglobin A1c (4.0-6.0) % Calcium (8.4-10.2) mg/dL Phosphorus (2.5-4.5) mg/dL Total Protein (6.3-8.2) g/dL Albumin (3.5-5.0) g/dL 11/04/18 11/05/18 11/05/18 Range/Units 23:02 00:00 00:08 VBG pH (7.31-7.41) VBG pCO2 (37-51) mmHg VBG HCO3 (24-28) mmol/L Sodium 132 L (137-145) mmol/L Potassium (3.5-5.1) mmol/L Chloride (98-107) mmol/L Carbon Dioxide 14 L (22-30) mmol/L BUN 4 L (7-17) mg/dL Creatinine 0.36 L (0.52-1.04) mg/dL Glucose 286 H (74-99) mg/dL POC Glucose (mg/dL) 302 H 273 H (75-99) mg/dL Hemoglobin A1c (4.0-6.0) % Calcium 8.3 L (8.4-10.2) mg/dL Phosphorus 1.6 L (2.5-4.5) mg/dL Total Protein (6.3-8.2) g/dL Albumin (3.5-5.0) g/dL 11/05/18 11/05/18 11/05/18 Range/Units 01:05 02:01 03:02 VBG pH (7.31-7.41) VBG pCO2 (37-51) mmHg VBG HCO3 (24-28) mmol/L Sodium (137-145) mmol/L Potassium (3.5-5.1) mmol/L Chloride (98-107) mmol/L Carbon Dioxide (22-30) mmol/L BUN (7-17) mg/dL Creatinine (0.52-1.04) mg/dL Glucose (74-99) mg/dL POC Glucose (mg/dL) 278 H 248 H 239 H (75-99) mg/dL Hemoglobin A1c (4.0-6.0) % Calcium (8.4-10.2) mg/dL Phosphorus (2.5-4.5) mg/dL Total Protein (6.3-8.2) g/dL Albumin (3.5-5.0) g/dL 11/05/18 11/05/18 11/05/18 Range/Units 03:57 04:01 05:20 VBG pH (7.31-7.41) VBG pCO2 (37-51) mmHg VBG HCO3 (24-28) mmol/L Sodium 134 L (137-145) mmol/L Potassium (3.5-5.1) mmol/L Chloride 108 H (98-107) mmol/L Carbon Dioxide 15 L (22-30) mmol/L BUN 3 L (7-17) mg/dL Creatinine 0.29 L (0.52-1.04) mg/dL Glucose 222 H (74-99) mg/dL POC Glucose (mg/dL) 239 H 202 H (75-99) mg/dL Hemoglobin A1c (4.0-6.0) % Calcium (8.4-10.2) mg/dL Phosphorus 1.4 L (2.5-4.5) mg/dL Total Protein 5.9 L (6.3-8.2) g/dL Albumin 3.3 L (3.5-5.0) g/dL 11/05/18 11/05/18 11/05/18 Range/Units 06:03 07:00 07:55 VBG pH (7.31-7.41) VBG pCO2 (37-51) mmHg VBG HCO3 (24-28) mmol/L Sodium 136 L (137-145) mmol/L Potassium (3.5-5.1) mmol/L Chloride 108 H (98-107) mmol/L Carbon Dioxide 16 L (22-30) mmol/L BUN 3 L (7-17) mg/dL Creatinine 0.31 L (0.52-1.04) mg/dL Glucose 250 H (74-99) mg/dL POC Glucose (mg/dL) 201 H 184 H (75-99) mg/dL Hemoglobin A1c (4.0-6.0) % Calcium (8.4-10.2) mg/dL Phosphorus 1.8 L (2.5-4.5) mg/dL Total Protein (6.3-8.2) g/dL Albumin (3.5-5.0) g/dL 11/05/18 11/05/18 11/05/18 Range/Units 08:14 08:56 10:05 VBG pH (7.31-7.41) VBG pCO2 (37-51) mmHg VBG HCO3 (24-28) mmol/L Sodium (137-145) mmol/L Potassium (3.5-5.1) mmol/L Chloride (98-107) mmol/L Carbon Dioxide (22-30) mmol/L BUN (7-17) mg/dL Creatinine (0.52-1.04) mg/dL Glucose (74-99) mg/dL POC Glucose (mg/dL) 252 H 250 H 243 H (75-99) mg/dL Hemoglobin A1c (4.0-6.0) % Calcium (8.4-10.2) mg/dL Phosphorus (2.5-4.5) mg/dL Total Protein (6.3-8.2) g/dL Albumin (3.5-5.0) g/dL 11/05/18 11/05/18 11/05/18 Range/Units 11:01 12:05 12:06 VBG pH (7.31-7.41) VBG pCO2 (37-51) mmHg VBG HCO3 (24-28) mmol/L Sodium 134 L (137-145) mmol/L Potassium (3.5-5.1) mmol/L Chloride (98-107) mmol/L Carbon Dioxide 17 L (22-30) mmol/L BUN <2 L (7-17) mg/dL Creatinine 0.28 L (0.52-1.04) mg/dL Glucose 214 H (74-99) mg/dL POC Glucose (mg/dL) 237 H 250 H (75-99) mg/dL Hemoglobin A1c (4.0-6.0) % Calcium (8.4-10.2) mg/dL Phosphorus 2.2 L (2.5-4.5) mg/dL Total Protein (6.3-8.2) g/dL Albumin (3.5-5.0) g/dL 11/05/18 11/05/18 Range/Units 14:17 15:41 VBG pH (7.31-7.41) VBG pCO2 (37-51) mmHg VBG HCO3 (24-28) mmol/L Sodium 134 L (137-145) mmol/L Potassium 3.4 L (3.5-5.1) mmol/L Chloride (98-107) mmol/L Carbon Dioxide 18 L (22-30) mmol/L BUN (7-17) mg/dL Creatinine (0.52-1.04) mg/dL Glucose (74-99) mg/dL POC Glucose (mg/dL) 275 H (75-99) mg/dL Hemoglobin A1c (4.0-6.0) % Calcium (8.4-10.2) mg/dL Phosphorus (2.5-4.5) mg/dL Total Protein (6.3-8.2) g/dL Albumin (3.5-5.0) g/dL Assessment and Plan Plan: 1 acute DKA in a patient with a new onset diabetes mellitus type 1. 2 severe anion gap metabolic acidosis, improved 3 obesity with a BMI of 45.3 4 hypertension 5 muscular dystrophy 6 left bundle branch block pattern 7 abnormal LFTs, improved Plan Provide diet. Switch this patient to a Levemir insulin 40 units along with sign s care coverage. The patient also will receive NovoLog 10 units every before meals 3 times a day. She'll be also receiving a side effect coverage. Replace electrolytes. Diabetic education. We'll continue to follow.
[2018-11-05 16:54] LABS: Glucose,Whole Blood 241 mg/dL (75-99)
[2018-11-05] MEDS: POTASSIUM CHLORIDE ER 20 MEQ TAB.ER PO SCH ×2 (16:56→17:52)
[2018-11-05 20:42] LABS: Glucose,Whole Blood 299 mg/dL (75-99)
[2018-11-05 20:45] LABS: African American GFR (CKD) >90 (>60 ml/min/1.73 sqM); Anion Gap 11 mmol/L; Blood Urea Nitrogen 4 mg/dL (7-17); Carbon Dioxide 22 mmol/L (22-30); Chloride 101 mmol/L (98-107); Phosphorus 1.8 mg/dL (2.5-4.5); Potassium 3.9 mmol/L (3.5-5.1); Sodium 134 mmol/L (137-145)
[2018-11-05] MEDS ORDERED: ENOXAPARIN 40 MG/0.4 ML SYRINGE SQ SCH (22:15)
--- NOTE | 2018-11-05 22:15 | P.PN ---
Progress Note - Text Progress Note Date: 11/05/18 Presenting complaint: High sugars Interval history: This is a 27-year-old white female who reported to the emergency room because of 4 days history of nausea and vomiting. She states that she could not keep her food or drinks down secondary to nausea and vomiting. She has vomited several times. She has been feeling weak and lethargic and dizzy. She denies chest pain or shortness of breath. She denies subjective fever but reports some burning sensation upon urination. She denies hematuria. She denies cough or wheezing. She denies any change in muscular weakness. She has been breathing harder than usual but is not specifically short of breath. She does not have history of known diabetes. Chronic stable medical conditions include-muscular dystrophy of unknown type, essential hypertension, morbid obesity, chronic left bundle-branch block, IUD being followed at [facility]. Admitted with diabetic ketoacidosis Today-feeling better. Earlier today taken off insulin drip by Dr. Castillo. Patient was given Levemir 40 units. Appetite is getting. Better. Patient does complain of lumps in the right axilla coming on and off for some time. A bit tender. Patient does shave her armpits with a razor. Up and about. Review of systems: Was done for constitutional, cardiovascular, GI, pulmonary. relevant finding as above Active Medications Acetaminophen (Tylenol Tab) 500 mg PO Q6HR PRN PRN Reason: Fever and/ or Mild Pain Last Admin: 11/04/18 22:01 Dose: 500 mg Documented by: Enoxaparin Sodium (Lovenox) 40 mg SQ Q24H [facility] Potassium Phosphate 10 mmol/ (Sodium Chloride) 253.3333 mls @ 125 mls/hr IV Q2H [facility] Stop: 11/06/18 01:29 Last Admin: 11/05/18 21:34 Dose: 125 mls/hr Documented by: Insulin Aspart (Novolog) 0 unit SQ ACHS [facility]; Protocol Last Admin: 11/05/18 20:42 Dose: 7 unit Documented by: Insulin Aspart (Novolog Mix 70-30 Vial) 30 unit SQ AC-BID [facility] Insulin Aspart (Novolog Mix 70-30 Vial) 12 unit SQ AC-LUNCH [facility] Insulin Detemir (Levemir) 40 unit SQ DAILY@0700 [facility] Last Admin: 09/23/19 12:24 Dose: 40 unit Documented by: Lisinopril (Zestril) 2.5 mg PO DAILY [facility] Melatonin (Melatonin) 5 mg PO HS PRN PRN Reason: Insomnia Miscellaneous Information (Magnesium Per Protocol) 1 each MISCELLANE DAILY PRN; Protocol PRN Reason: Per Protocol Miscellaneous Information (Potassium Per Protocol) 1 each MISCELLANE DAILY PRN PRN Reason: Per Protocol Miscellaneous Information (Phosphorus Per Protocol) 1 each MISCELLANE DAILY PRN; Protocol PRN Reason: Per Protocol Trimethoprim/Sulfamethoxazole (Bactrim Ds) 1 each PO BID [facility] On examination: VITAL SIGNS: [98.4, 105, 12, 133/97, 95% room air] GENERAL APPEARANCE: BMI 45.3, sitting up, comfortable. HEENT: Normal external appearance of nose and ear. Oral cavity normal EYES: Pupils equal. Conjunctiva normal. NECK: JVD not raised. Mass not palpable. RESPIRATORY: Respiratory effort normal. Lungs clear to auscultation. CARDIOVASCULAR: First and second sounds normal. No edema. ABDOMEN: Soft. Liver and spleen not palpable. No tenderness. No mass palpable. PSYCHIATRY: Alert and oriented x3. Mood and affect normal. 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 This will much less expensive and given that, better chance of compliance. This was discussed with the patient. We will get a few Accu-Cheks numbers from tomorrow and hopefully the patient can be discharged tomorrow evening. Once I have more numbers available. We'll check a lipid profile in the morning. Increase the dose of lisinopril to 2.5 mg daily. Check a lipid panel in the morning. Patient is stable to be moved out of the ICU. Replace electrolytes. Lovenox for DVT prophylaxis
[2018-11-05] MEDS: SULFAMETHOX-TMP 800-160MG 1 EACH TAB PO SCH (22:24)
[2018-11-06] MEDS: ACETAMINOPHEN TAB 500 MG TAB PO PRN (05:27)
[2018-11-06 07:12] LABS: Glucose,Whole Blood 314 mg/dL (75-99)
[2018-11-06] MEDS: INSULN ASP PRT/INSULIN ASPART 100 UNIT/ML 10 ML VIAL SQ SCH ×2 (08:12→17:39)
[2018-11-06] MEDS: SULFAMETHOX-TMP 800-160MG 1 EACH TAB PO SCH (08:12)
[2018-11-06] MEDS: INSULIN ASPART (NovoLOG) 100 UNIT/ML VIAL SQ SCH ×3 (08:13→17:39)
[2018-11-06] MEDS: INSULIN DETEMIR (LEVEMIR) 100 UNIT/ML SYR SQ SCH (08:16)
[2018-11-06 08:21] LABS: Basophils # (A) 0.1 k/uL (0-0.2); Basophils % (A) 1 %; Eosinophils # (A) 0.1 k/uL (0-0.7); Eosinophils % (A) 2 %; HCT 38.5 % (34.0-46.0); HGB 13.4 gm/dL (11.4-16.0); Lymphocytes # (A) 2.4 k/uL (1.0-4.8); Lymphocytes % (A) 42 %; MCH 28.8 pg (25.0-35.0); MCHC 34.8 g/dL (31.0-37.0); MCV 82.7 fL (80.0-100.0); Mean Platelet Volume 8.5; Monocytes # (A) 0.5 k/uL (0-1.0); Monocytes % (A) 8 %; Neutrophils # (A) 2.6 k/uL (1.3-7.7); Neutrophils % (A) 44 %; Platelet Count 205 k/uL (150-450); RBC 4.65 m/uL (3.80-5.40); RDW 13.2 % (11.5-15.5); WBC 5.8 k/uL (3.8-10.6)
[2018-11-06 08:47] LABS: ALT 42 U/L (9-52); AST 24 U/L (14-36); African American GFR (CKD) >90 (>60 ml/min/1.73 sqM); Alkaline Phosphatase 93 U/L (38-126); Anion Gap 11 mmol/L; Blood Urea Nitrogen 2 mg/dL (7-17); Calcium 8.4 mg/dL (8.4-10.2); Carbon Dioxide 21 mmol/L (22-30); Chloride 102 mmol/L (98-107); Cholesterol 142 mg/dL (<200); Glucose 299 mg/dL (74-99); HDL Cholesterol 23 mg/dL (40-60); LDL Cholesterol,Calculated 85 mg/dL (0-99); Phosphorus 2.6 mg/dL (2.5-4.5); Potassium 3.9 mmol/L (3.5-5.1); Sodium 134 mmol/L (137-145); Total Bilirubin 1.1 mg/dL (0.2-1.3); Total Protein 5.3 g/dL (6.3-8.2); Triglycerides 170 mg/dL (<150)
[2018-11-06] MEDS ORDERED: LISINOPRIL 2.5 MG TAB PO SCH (09:00)
[2018-11-06] MEDS ORDERED: ATORVASTATIN 20 MG TAB PO SCH (12:15)
[2018-11-06 12:24] LABS: Glucose,Whole Blood 291 mg/dL (75-99)
[2018-11-06] MEDS ORDERED: INSULN ASP PRT/INSULIN ASPART 100 UNIT/ML 10 ML VIAL SQ SCH (12:30)
--- NOTE | 2018-11-06 13:09 | P.PN ---
Subjective Progress Note Date: 11/06/18 Principal diagnosis: Acute DKA patient with new-onset diabetes mellitus, type I. The patient is seen today 11/06/2018 in follow-up on the regular medical floor. She is awake and alert in no acute distress. No worsening shortness of breath, cough or congestion.maintaining good O2 saturations in the 90s on room air. She's afebrile. Hemodynamically stable. glucose still running high currently at 291. Sodium 134. Bicarb 21. Creatinine 0.33. White count 5.8. Hemoglobin 1 3.4. Triglycerides 170. She has been initiated on Levemir 40 units daily along with NovoLog twice a day 30 units and 12 units at lunch. Objective - Vital Signs Vital signs: Vital Signs Temp 97.4 F L 11/06/18 09:13 Pulse 99 11/06/18 09:13 Resp 18 11/06/18 09:13 BP 115/85 11/06/18 09:13 Pulse Ox 96 11/06/18 09:13 Intake & Output 11/05/18 11/06/18 11/06/18 18:59 06:59 18:59 Intake Total 2536.923 980 Output Total 500 Balance 2036.923 980 Weight 131.1 kg Intake: IV 1675 250 D5-0.45% NaCl with KCl 1050 20Meq/l 1,000 ml @ 150 mls/hr IV .Q6H40M [facility] Rx# :[id number] Potassium Phosphate 10 625 250 mmol In Sodium Chloride 0 .9% 250 ml @ 125 mls/hr IV Q2H [facility] Rx#:[id number] Intake, IV Titration 61.923 250 Amount Insulin Regular 100 unit 61.923 In Sodium Chloride 0.9% 100 ml @ 0.1 UNITS/KG/HR 14.798 mls/hr IV .Q6H50M [facility] Rx#:[id number] Potassium Phosphate 10 250 mmol In Sodium Chloride 0 .9% 250 ml @ 125 mls/hr IV Q2H [facility] Rx#:[id number] Oral 800 480 Output: Urine 500 Other: Voiding Method Toilet Toilet Toilet # Voids 1 1 # Bowel Movements 1 - Exam The patient is a pleasant 27-year-old female patient. Comfortable in no acute distress. She is morbidly obese and she carries a BMI of 45.3. Vital signs stable. Head exam is unremarkable. No scleral icterus or corneal arcus noted. Neck is without jugular venous distension, thyromegaly, or carotid bruits. Carotid upstrokes are brisk bilaterally. Lungs are clear to auscultation and percussion. Cardiac exam reveals the PMI to be normally sized and situated. Rhythm is regular. First and second heart sounds normal. No murmurs, rubs or gallops. Abdominal exam reveals normal bowel sounds, no masses, no organomegaly and no aortic enlargement. Extremities are nonedematous and both femoral and pedal pulses are normal.Examination of the skin revealed no evidence of significant rashes, suspicious appearing nevi or other concerning lesions. Neurologically the patient has some motor weakness in all 4 extremities. For the most part the cranial nerves are intact and there is no focal neurological deficit at this point in time. - Labs CBC & Chem 7: 11/06/18 07:06 11/06/18 07:06 Labs: Abnormal Lab Results - Last 24 Hours (Table) 11/05/18 11/05/18 11/05/18 Range/Units 12:05 14:17 15:41 Sodium 134 L 134 L (137-145) mmol/L Potassium 3.4 L (3.5-5.1) mmol/L Carbon Dioxide 17 L 18 L (22-30) mmol/L BUN <2 L (7-17) mg/dL Creatinine 0.28 L (0.52-1.04) mg/dL Glucose 214 H (74-99) mg/dL POC Glucose (mg/dL) 275 H (75-99) mg/dL Phosphorus 2.2 L (2.5-4.5) mg/dL Total Protein (6.3-8.2) g/dL Albumin (3.5-5.0) g/dL Triglycerides (<150) mg/dL HDL Cholesterol (40-60) mg/dL 11/05/18 11/05/18 11/05/18 Range/Units 16:51 20:02 20:21 Sodium 134 L (137-145) mmol/L Potassium (3.5-5.1) mmol/L Carbon Dioxide (22-30) mmol/L BUN 4 L (7-17) mg/dL Creatinine 0.47 L (0.52-1.04) mg/dL Glucose (74-99) mg/dL POC Glucose (mg/dL) 241 H 299 H (75-99) mg/dL Phosphorus 1.8 L (2.5-4.5) mg/dL Total Protein (6.3-8.2) g/dL Albumin (3.5-5.0) g/dL Triglycerides (<150) mg/dL HDL Cholesterol (40-60) mg/dL 11/06/18 11/06/18 11/06/18 Range/Units 07:06 07:10 12:23 Sodium 134 L (137-145) mmol/L Potassium (3.5-5.1) mmol/L Carbon Dioxide 21 L (22-30) mmol/L BUN 2 L (7-17) mg/dL Creatinine 0.33 L (0.52-1.04) mg/dL Glucose 299 H (74-99) mg/dL POC Glucose (mg/dL) 314 H 291 H (75-99) mg/dL Phosphorus (2.5-4.5) mg/dL Total Protein 5.3 L (6.3-8.2) g/dL Albumin 3.0 L (3.5-5.0) g/dL Triglycerides 170 H (<150) mg/dL HDL Cholesterol 23 L (40-60) mg/dL Assessment and Plan Assessment: Impression: #1 New-onset diabetes mellitus, type I with acute DKA. #2 Severe anion gap metabolic acidosis, recovered. #3 Obesity with a BMI of 45.3. #4 Hypertension. #5 Muscular dystrophy. #6 Left bundle branch block pattern. #7 Abnormal LFTs, improved. Plan: The patient was seen and evaluated by Dr. Castillo. She is stable from the pulmonary critical care standpoint. Insulin being adjusted. She should be worked up for suspected obesity/hypoventilation syndrome and muscle weakness due to muscular dystrophy. May benefit from CPAP/BiPAP in the outpatient setting. In the interim we'll continue the current treatment plan. We'll continue to follow and make further recommendations based on her clinical status. I, the cosigning physician, performed a history & physical examination of the patient. Lungs sounds are clear. Maintaining good O2 saturations in the 90s on room air. I discussed the assessment and plan of care with my nurse practitioner, Carol Ann Pérez. I attest to the above note as dictated by her.
[2018-11-06 16:04] VITALS: BP 127/81; PULSE 94; RESP 16; TEMP 97.5
[2018-11-06 17:14] LABS: Glucose,Whole Blood 267 mg/dL (75-99)
--- NOTE | 2018-11-07 01:13 | P.DS ---
Providers Date of admission: 11/04/18 12:06 Expected date of discharge: 11/06/18 Attending physician: Yunior Morales Consults: 11/04/18 14:37 Consult Physician Routine Consulting Provider: Prashanth Muller Consult Reason/Comments: DKA ICU care Do you want consulting provider notified?: Already Contacted Primary care physician: Jeromy Dupont [facility] Course: Presenting complaint: High sugars Hospital course: This is a 27-year-old white female who reported to the emergency room because of 4 days history of nausea and vomiting. She states that she could not keep her food or drinks down secondary to nausea and vomiting. She has vomited several times. She has been feeling weak and lethargic and dizzy. She denies chest pain or shortness of breath. She denies subjective fever but reports some burning sensation upon urination. She denies hematuria. She denies cough or wheezing. She denies any change in muscular weakness. She has been breathing harder than usual but is not specifically short of breath. She does not have history of known diabetes. Chronic stable medical conditions include-muscular dystrophy of unknown type, essential hypertension, morbid obesity, chronic left bundle-branch block, IUD being followed at [facility]. Admitted with diabetic ketoacidosis Today-doing better. Care was discussed with the patient. Stable for discharge. On examination: VITAL SIGNS: 97.5, 94, 16, 127/81, 95% room air GENERAL APPEARANCE: BMI 45.3, sitting up, comfortable. HEENT: Normal external appearance of nose and ear. Oral cavity normal EYES: Pupils equal. Conjunctiva normal. NECK: JVD not raised. Mass not palpable. RESPIRATORY: Respiratory effort normal. Lungs clear to auscultation. CARDIOVASCULAR: First and second sounds normal. No edema. ABDOMEN: Soft. Liver and spleen not palpable. No tenderness. No mass palpable. PSYCHIATRY: Alert and oriented x3. Mood and affect normal. 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 mellitus, with acute exacerbation -Muscular dystrophy type unknown Disposition: Home Patient Condition at Discharge: Stable Plan - Discharge Summary Discharge Rx Participant: Yes New Discharge Prescriptions: New Sulfamethox-Tmp 800-160Mg [Bactrim DS 800-160 mg] 1 each PO BID #14 tab Atorvastatin [Lipitor] 20 mg PO DAILY #30 tab Insuln Asp Prt/Insulin Aspart [NovoLOG MIX 70-30 VIAL] 40 unit SQ AC-BID #1 vial Insuln Asp Prt/Insulin Aspart [NovoLOG MIX 70-30 VIAL] 20 unit SQ AC-LUNCH #1 vial Continue Melatonin 5 mg PO HS PRN PRN Reason: Insomnia Changed Lisinopril [Zestril] 2.5 mg PO DAILY #0 Discharge Medication List Melatonin 5 mg PO HS PRN 11/04/18 [History] Atorvastatin [Lipitor] 20 mg PO DAILY #30 tab 11/06/18 [Rx] Insuln Asp Prt/Insulin Aspart [NovoLOG MIX 70-30 VIAL] 20 unit SQ AC-LUNCH #1 vial 11/06/18 [Rx] Insuln Asp Prt/Insulin Aspart [NovoLOG MIX 70-30 VIAL] 40 unit SQ AC-BID #1 vial 11/06/18 [Rx] Lisinopril [Zestril] 2.5 mg PO DAILY #0 11/06/18 [Rx] Sulfamethox-Tmp 800-160Mg [Bactrim DS 800-160 mg] 1 each PO BID #14 tab 11/06/18 [Rx] Follow up Appointment(s)/Referral(s): Jeromy Dupont MD [Primary Care Provider] - 11/09/18 10:30 am Patient Instructions/Handouts: Type 1 Diabetes in Adults: New Diagnosis (DC), Basic Carbohydrate Counting (DC), Meal Planning with Diabetes Exchanges (DC) Activity/Diet/Wound Care/Special Instructions: [facility] supplied Glucometer and diabetic supplies to patient at bedside. keep log of blood glucose before each meal and nighttime snack. Discharge Disposition: HOME SELF-CARE
== END 2018-11-06 18:28 | disposition home or self-care (01) | DRG 638 ==
LOC: EC 08:49 → 3SCARD 12:06 → 2SICU 13:07 → 4MS4W 11-06 03:22
PROVIDERS: ADMIT Hospitalist; ATTEND Hospitalist
DX: E10.10 Type 1 diabetes mellitus with ketoacidosis without coma (principal); Z68.43 Body mass index [BMI] 50.0-59.9, adult; E66.01 Morbid (severe) obesity due to excess calories; E87.6 Hypokalemia; I10 Essential (primary) hypertension; F17.200 Nicotine dependence, unspecified, uncomplicated; H91.90 Unspecified hearing loss, unspecified ear; G71.00 Muscular dystrophy, unspecified; I44.7 Left bundle-branch block, unspecified; R94.5 Abnormal results of liver function studies; L73.2 Hidradenitis suppurativa; E83.39 Other disorders of phosphorus metabolism; Z90.89 Acquired absence of other organs; Z79.4 Long term (current) use of insulin; Z83.3 Family history of diabetes mellitus
CPT/HCPCS: 36415; 71045; 80048; 80051; 80053; 80061; 81001; 81025; 82009; 82150; 82565; 82803; 82947; 83036; 83690; 83735; 84100; 84520; 85025; 96361; 96374; 99285

== ENCOUNTER 2019-02-21 21:41 | Inpatient (IN) | payer OTHER ==
[2019-02-21 22:05] LABS: Glucose,Whole Blood 469 mg/dL (75-99)
[2019-02-21] MEDS ORDERED: ONDANSETRON 4 MG/2 ML VIAL IVP STA (22:07)
[2019-02-21] MEDS: SODIUM CHLORIDE 0.9% 500 ML 500 ML IV SCH (22:31)
[2019-02-21 22:41] LABS: Basophils # (A) 0.1 k/uL (0-0.2); Basophils % (A) 1 %; Eosinophils # (A) 0.1 k/uL (0-0.7); Eosinophils % (A) 1 %; HCT 49.3 % (34.0-46.0); HGB 16.5 gm/dL (11.4-16.0); Lymphocytes # (A) 1.4 k/uL (1.0-4.8); Lymphocytes % (A) 10 %; MCH 29.4 pg (25.0-35.0); MCHC 33.6 g/dL (31.0-37.0); MCV 87.5 fL (80.0-100.0); Mean Platelet Volume 9.1; Monocytes # (A) 0.5 k/uL (0-1.0); Monocytes % (A) 3 %; Neutrophils # (A) 11.8 k/uL (1.3-7.7); Neutrophils % (A) 84 %; Platelet Count 293 k/uL (150-450); RBC 5.63 m/uL (3.80-5.40); RDW 12.9 % (11.5-15.5); WBC 13.9 k/uL (3.8-10.6)
--- NOTE | 2019-02-21 22:43 | ED ---
General Adult HPI - General Chief complaint: Recheck/Abnormal Lab/Rx Stated complaint: Type 1 diabetic, Hyperglycemia, Vomiting Time Seen by Provider: 02/21/19 22:06 Source: patient Mode of arrival: ambulatory Limitations: no limitations - History of Present Illness Initial comments: Kimberlyn is a type II diabetic female on metformin 500 mg twice a day. She presents the ER today for evaluation of nausea vomiting and hyperglycemia. Patient reports she has previously been on insulin but was transitioned to pills recently by her primary care provider. She been doing well. Patient reports that this evening she became very nauseated should 3-4 episodes of nonbloody nonbilious emesis. She's been checking her sugars at home and they've been higher than 400 which prompted her to come the ER for evaluation. Patient denies fevers or chills she denies chest pain palpitations or shortness of breath. She denies any abdominal pain aside from cramping after vomiting. - Related Data Home Medications Medication Instructions Recorded Confirmed Melatonin 5 mg PO HS PRN 11/04/18 11/04/18 Previous Rx's Medication Instructions Recorded Atorvastatin [Lipitor] 20 mg PO DAILY #30 tab 11/06/18 Insuln Asp Prt/Insulin Aspart 20 unit SQ AC-LUNCH #1 vial 11/06/18 [NovoLOG MIX 70-30 VIAL] Insuln Asp Prt/Insulin Aspart 40 unit SQ AC-BID #1 vial 11/06/18 [NovoLOG MIX 70-30 VIAL] Lisinopril [Zestril] 2.5 mg PO DAILY #0 11/06/18 Sulfamethox-Tmp 800-160Mg [Bactrim 1 each PO BID #14 tab 11/06/18 DS 800-160 mg] Allergies Allergy/AdvReac Type Severity Reaction Status Date / Time No Known Allergies Allergy Verified 02/21/19 21:53 Review of Systems ROS Statement: Those systems with pertinent positive or pertinent negative responses have been documented in the HPI. ROS Other: All systems not noted in ROS Statement are negative. 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, non ischemic cardiomyopathy History of Any Multi-Drug Resistant Organisms: None Reported Past Surgical History: Ear Surgery, Tonsillectomy Past Anesthesia/Blood Transfusion Reactions: No Reported Reaction Past Psychological History: No Psychological Hx Reported, Depression Smoking Status: Current every day smoker Past Alcohol Use History: Occasional Past Drug Use History: None Reported - Past Family History Father Family Medical History: Diabetes Mellitus Mother Family Medical History: Coronary Artery Disease (CAD) General Exam - General Exam Comments Initial Comments: Physical Exam GENERAL: Obese dehydrated female in no acute distress HENT: Normocephalic, Atraumatic. EYES: PERRL, EOMI PULMONARY: Unlabored respirations. CARDIOVASCULAR: RRR ABDOMEN: Soft and nontender with normal bowel sounds. SKIN: Skin is clear with no lesions or rashes and otherwise unremarkable. : Deferred NEUROLOGIC: Patient is alert and oriented x3. Moving all extremities spontaneously MUSCULOSKELETAL: Normal extremities with adequate strength and full range of motion. No lower extremity swelling or edema. No calf tenderness. PSYCHIATRIC: Normal psychiatric evaluation. Limitations: no limitations Course Vital Signs 02/21/19 02/21/19 21:51 23:55 Temperature 97.5 F L Pulse Rate 96 83 Respiratory 18 18 Rate Blood Pressure 121/88 115/55 O2 Sat by Pulse 95 98 Oximetry Medical Decision Making - Medical Decision Making The patient was seen and evaluated history was obtained from patient. Previously insulin-dependent type 2 diabetic now on oral medications reports nausea and vomiting throughout the day as well as hyperglycemia. I DKA workup was initiated. Labs were consistent with DKA with a anion gap of greater then 25 and a bicarb of only 8 with hyperglycemia glucose greater than 500. Patient's potassium was 4.5. Weight based bolus of insulin was given, insulin drip was initiated. Additional IV fluids were ordered. Patient care was discussed with admitting physician Dr. elaine agrees with plan for admission for aggressive IV fluids, repeat labs. Orders were placed the patient was admitted. - Lab Data Result diagrams: 02/21/19 22:28 02/21/19 22:28 Lab Results 02/21/19 02/21/19 02/21/19 Range/Units 22:03 22:28 22:28 WBC 13.9 H (3.8-10.6) k/uL RBC 5.63 H (3.80-5.40) m/uL Hgb 16.5 H (11.4-16.0) gm/dL Hct 49.3 H (34.0-46.0) % MCV 87.5 (80.0-100.0) fL MCH 29.4 (25.0-35.0) pg MCHC 33.6 (31.0-37.0) g/dL RDW 12.9 (11.5-15.5) % Plt Count 293 (150-450) k/uL Neutrophils % 84 % Lymphocytes % 10 % Monocytes % 3 % Eosinophils % 1 % Basophils % 1 % Neutrophils # 11.8 H (1.3-7.7) k/uL Lymphocytes # 1.4 (1.0-4.8) k/uL Monocytes # 0.5 (0-1.0) k/uL Eosinophils # 0.1 (0-0.7) k/uL Basophils # 0.1 (0-0.2) k/uL Sodium 140 (137-145) mmol/L Potassium 4.5 (3.5-5.1) mmol/L Chloride 105 (98-107) mmol/L Carbon Dioxide 8 L* (22-30) mmol/L Anion Gap 27 mmol/L BUN 13 (7-17) mg/dL Creatinine 0.60 (0.52-1.04) mg/dL Est GFR (CKD-EPI)AfAm >90 (>60 ml/min/1.73 sqM) Est GFR (CKD-EPI)NonAf >90 (>60 ml/min/1.73 sqM) Glucose 508 H* (74-99) mg/dL POC Glucose (mg/dL) 469 H (75-99) mg/dL POC Glu Necktie Turner ID Monday, Rosemarie Osmolality 317 H (280-301) mosm/kg Plasma Lactic Acid Marshall (0.7-2.0) mmol/L Calcium 10.0 (8.4-10.2) mg/dL Phosphorus (2.5-4.5) mg/dL Magnesium 1.9 (1.6-2.3) mg/dL Total Bilirubin 1.0 (0.2-1.3) mg/dL AST 18 (14-36) U/L ALT 21 (4-34) U/L Alkaline Phosphatase 137 H (38-126) U/L Total Protein 7.8 (6.3-8.2) g/dL Albumin 4.9 (3.5-5.0) g/dL Urine Color Urine Appearance (Clear) Urine pH (5.0-8.0) Ur Specific [place] (1.001-1.035) Urine Protein (Negative) Urine Glucose (UA) (Negative) Urine Ketones (Negative) Urine Blood (Negative) Urine Nitrite (Negative) Urine Bilirubin (Negative) Urine Urobilinogen (<2.0) mg/dL Ur Leukocyte Esterase (Negative) Urine RBC (0-5) /hpf Urine WBC (0-5) /hpf Ur Squamous Epith Cells (0-4) /hpf Urine Bacteria (None) /hpf Hyaline Casts (0-2) /lpf Urine Mucus (None) /hpf Acetone, Qual Positive (Negative) Influenza Type A RNA (Not Detectd) Influenza Type B (PCR) (Not Detectd) 02/21/19 02/21/19 02/21/19 Range/Units 22:28 22:28 22:42 WBC (3.8-10.6) k/uL RBC (3.80-5.40) m/uL Hgb (11.4-16.0) gm/dL Hct (34.0-46.0) % MCV (80.0-100.0) fL MCH (25.0-35.0) pg MCHC (31.0-37.0) g/dL RDW (11.5-15.5) % Plt Count (150-450) k/uL Neutrophils % % Lymphocytes % % Monocytes % % Eosinophils % % Basophils % % Neutrophils # (1.3-7.7) k/uL Lymphocytes # (1.0-4.8) k/uL Monocytes # (0-1.0) k/uL Eosinophils # (0-0.7) k/uL Basophils # (0-0.2) k/uL Sodium (137-145) mmol/L Potassium (3.5-5.1) mmol/L Chloride (98-107) mmol/L Carbon Dioxide (22-30) mmol/L Anion Gap mmol/L BUN (7-17) mg/dL Creatinine (0.52-1.04) mg/dL Est GFR (CKD-EPI)AfAm (>60 ml/min/1.73 sqM) Est GFR (CKD-EPI)NonAf (>60 ml/min/1.73 sqM) Glucose (74-99) mg/dL POC Glucose (mg/dL) (75-99) mg/dL POC Glu Necktie Turner ID Osmolality (280-301) mosm/kg Plasma Lactic Acid Marshall (0.7-2.0) mmol/L Calcium (8.4-10.2) mg/dL Phosphorus 4.7 H (2.5-4.5) mg/dL Magnesium (1.6-2.3) mg/dL Total Bilirubin (0.2-1.3) mg/dL AST (14-36) U/L ALT (4-34) U/L Alkaline Phosphatase (38-126) U/L Total Protein (6.3-8.2) g/dL Albumin (3.5-5.0) g/dL Urine Color Light Yellow Urine Appearance Clear (Clear) Urine pH 5.0 (5.0-8.0) Ur Specific [place] 1.020 (1.001-1.035) Urine Protein Trace H (Negative) Urine Glucose (UA) 4+ H (Negative) Urine Ketones 4+ H (Negative) Urine Blood Moderate H (Negative) Urine Nitrite Negative (Negative) Urine Bilirubin Negative (Negative) Urine Urobilinogen <2.0 (<2.0) mg/dL Ur Leukocyte Esterase Negative (Negative) Urine RBC 7 H (0-5) /hpf Urine WBC 2 (0-5) /hpf Ur Squamous Epith Cells 2 (0-4) /hpf Urine Bacteria Rare H (None) /hpf Hyaline Casts 1 (0-2) /lpf Urine Mucus Rare H (None) /hpf Acetone, Qual (Negative) Influenza Type A RNA Not Detected (Not Detectd) Influenza Type B (PCR) Not Detected (Not Detectd) 02/21/19 02/21/19 Range/Units 22:53 23:37 WBC (3.8-10.6) k/uL RBC (3.80-5.40) m/uL Hgb (11.4-16.0) gm/dL Hct (34.0-46.0) % MCV (80.0-100.0) fL MCH (25.0-35.0) pg MCHC (31.0-37.0) g/dL RDW (11.5-15.5) % Plt Count (150-450) k/uL Neutrophils % % Lymphocytes % % Monocytes % % Eosinophils % % Basophils % % Neutrophils # (1.3-7.7) k/uL Lymphocytes # (1.0-4.8) k/uL Monocytes # (0-1.0) k/uL Eosinophils # (0-0.7) k/uL Basophils # (0-0.2) k/uL Sodium (137-145) mmol/L Potassium (3.5-5.1) mmol/L Chloride (98-107) mmol/L Carbon Dioxide (22-30) mmol/L Anion Gap mmol/L BUN (7-17) mg/dL Creatinine (0.52-1.04) mg/dL Est GFR (CKD-EPI)AfAm (>60 ml/min/1.73 sqM) Est GFR (CKD-EPI)NonAf (>60 ml/min/1.73 sqM) Glucose (74-99) mg/dL POC Glucose (mg/dL) 458 H (75-99) mg/dL POC Glu Necktie Turner ID Leeanna Cannon Osmolality (280-301) mosm/kg Plasma Lactic Acid Marshall 1.1 (0.7-2.0) mmol/L Calcium (8.4-10.2) mg/dL Phosphorus (2.5-4.5) mg/dL Magnesium (1.6-2.3) mg/dL Total Bilirubin (0.2-1.3) mg/dL AST (14-36) U/L ALT (4-34) U/L Alkaline Phosphatase (38-126) U/L Total Protein (6.3-8.2) g/dL Albumin (3.5-5.0) g/dL Urine Color Urine Appearance (Clear) Urine pH (5.0-8.0) Ur Specific [place] (1.001-1.035) Urine Protein (Negative) Urine Glucose (UA) (Negative) Urine Ketones (Negative) Urine Blood (Negative) Urine Nitrite (Negative) Urine Bilirubin (Negative) Urine Urobilinogen (<2.0) mg/dL Ur Leukocyte Esterase (Negative) Urine RBC (0-5) /hpf Urine WBC (0-5) /hpf Ur Squamous Epith Cells (0-4) /hpf Urine Bacteria (None) /hpf Hyaline Casts (0-2) /lpf Urine Mucus (None) /hpf Acetone, Qual (Negative) Influenza Type A RNA (Not Detectd) Influenza Type B (PCR) (Not Detectd) Critical Care Time Critical Care Time: Yes Total Critical Care Time: 30 Critical Care Time: Critical Care Time Critical care time was exclusive of separately billable procedures and treating other patients and teaching time. Critical care was necessary to treat or prevent imminent or life-threatening deterioration. Given the critical condition in which the patient arrived, the patient was imme diately assessed by myself and the nurse, and cardiac monitoring initiated due to the potential for rapid decompensation of the patient's clinical condition. During the course of the patients stay, I spent a considerable amount of time at the bedside performing serial re-evaluations of the patient's hemodynamic and clinical status because of the recognized potential threat to life or limb in this condition. I then had a chance to review not only all of the available current laboratory and radiographic studies obtained today, but I also reviewed old records available to me at the time. Additionally, any ancillary information available including director geophysical laboratory records were reviewed. Sequential vital signs were obtained. Disposition Clinical Impression: DKA (diabetic ketoacidoses) Disposition: ADMITTED IP TO THIS [facility] Condition: Serious
[2019-02-21 22:46] LABS: Appearance,Urine Clear (Clear); Bacteria,Urine Rare /hpf; Bilirubin,Urine Negative (Negative); Blood,Urine Moderate (Negative); Color,Urine Light Yellow; Glucose,Urine (UA) 4+ (Negative); Hyaline Casts,Urine 1 /lpf (0-2); Leukocyte Esterase,Urine Negative (Negative); Mucus,Urine Rare /hpf; Nitrite,Urine Negative (Negative); Protein,Urine Trace (Negative); RBC,Urine 7 /hpf (0-5); Squamous Epithelial Cell,Urine 2 /hpf (0-4); Urobilinogen,Urine <2.0 mg/dL (<2.0); WBC,Urine 2 /hpf (0-5)
[2019-02-21 22:47] LABS: Ketones,Urine 4+ (Negative)
[2019-02-21 22:48] LABS: ALT 21 U/L (4-34); AST 18 U/L (14-36); African American GFR (CKD) >90 (>60 ml/min/1.73 sqM); Albumin 4.9 g/dL (3.5-5.0); Alkaline Phosphatase 137 U/L (38-126); Anion Gap 27 mmol/L; Blood Urea Nitrogen 13 mg/dL (7-17); Chloride 105 mmol/L (98-107); Magnesium 1.9 mg/dL (1.6-2.3); Non-African American GFR(CKD) >90 (>60 ml/min/1.73 sqM); Potassium 4.5 mmol/L (3.5-5.1); Sodium 140 mmol/L (137-145); Total Protein 7.8 g/dL (6.3-8.2)
[2019-02-21 22:53] LABS: Carbon Dioxide 8 mmol/L (22-30); Glucose 508 mg/dL (74-99)
[2019-02-21] MEDS ORDERED: INSULIN REGULAR BOLUS (FROM DRIP BAG) IV PRN ×2 (23:11→23:41)
[2019-02-21 23:38] LABS: Glucose,Whole Blood 458 mg/dL (75-99)
[2019-02-21] MEDS: INSULIN REGULAR 100 UNIT in SODIUM CHLORIDE 0.9% 100 ML IV SCH (23:44)
[2019-02-21] MEDS ORDERED: SODIUM CHLORIDE 0.9% 1,000 ML IV SCH (23:45)
[2019-02-22 00:23] LABS: Glucose,Whole Blood 446 mg/dL (75-99)
[2019-02-22 00:58] LABS: Glucose,Whole Blood 296 mg/dL (75-99)
[2019-02-22] MEDS: D5-0.45% NACL WITH KCL 20MEQ/L 1,000 ML IV SCH ×3 (01:22→16:35)
[2019-02-22 02:08] LABS: Glucose,Whole Blood 260 mg/dL (75-99)
[2019-02-22 02:40] LABS: African American GFR (CKD) >90 (>60 ml/min/1.73 sqM); Anion Gap 21 mmol/L; Blood Urea Nitrogen 12 mg/dL (7-17); Chloride 109 mmol/L (98-107); Glucose 267 mg/dL (74-99); Non-African American GFR(CKD) >90 (>60 ml/min/1.73 sqM); Phosphorus 3.2 mg/dL (2.5-4.5); Potassium 3.9 mmol/L (3.5-5.1); Sodium 139 mmol/L (137-145)
[2019-02-22 02:56] LABS: Glucose,Whole Blood 279 mg/dL (75-99)
[2019-02-22 03:34] LABS: VBG PH 7.25 (7.31-7.41)
[2019-02-22 03:42] LABS: Carbon Dioxide 9 mmol/L (22-30)
[2019-02-22 04:05] LABS: Glucose,Whole Blood 217 mg/dL (75-99)
[2019-02-22 05:04] LABS: Glucose,Whole Blood 213 mg/dL (75-99)
[2019-02-22 06:04] LABS: Glucose,Whole Blood 216 mg/dL (75-99)
[2019-02-22 06:15] LABS: African American GFR (CKD) >90 (>60 ml/min/1.73 sqM); Anion Gap 16 mmol/L; Blood Urea Nitrogen 14 mg/dL (7-17); Carbon Dioxide 14 mmol/L (22-30); Chloride 106 mmol/L (98-107); Glucose 215 mg/dL (74-99); Non-African American GFR(CKD) >90 (>60 ml/min/1.73 sqM); Phosphorus 2.7 mg/dL (2.5-4.5); Potassium 3.9 mmol/L (3.5-5.1); Sodium 136 mmol/L (137-145)
[2019-02-22 06:32] LABS: Glucose,Whole Blood 243 mg/dL (75-99)
[2019-02-22 07:59] LABS: Glucose,Whole Blood 202 mg/dL (75-99)
[2019-02-22] MEDS: INSULIN REGULAR 100 UNIT in SODIUM CHLORIDE 0.9% 100 ML IV SCH ×2 (08:59→21:25)
[2019-02-22 09:00] LABS: Glucose,Whole Blood 198 mg/dL (75-99)
[2019-02-22 10:01] LABS: Glucose,Whole Blood 203 mg/dL (75-99)
[2019-02-22 11:00] LABS: Glucose,Whole Blood 314 mg/dL (75-99)
[2019-02-22 11:33] LABS: Glucose,Whole Blood 333 mg/dL (75-99)
[2019-02-22] MEDS: metFORMIN 500 MG TAB PO SCH ×2 (11:59→17:17)
[2019-02-22] MEDS: ENOXAPARIN 40 MG/0.4 ML SYRINGE SQ SCH (11:59)
[2019-02-22] MEDS: LISINOPRIL 20 MG TAB PO SCH (11:59)
[2019-02-22 12:02] LABS: Glucose,Whole Blood 303 mg/dL (75-99)
[2019-02-22 12:43] VITALS: BMI 39.9
[2019-02-22 13:03] LABS: Glucose,Whole Blood 312 mg/dL (75-99)
[2019-02-22 14:00] LABS: Glucose,Whole Blood 310 mg/dL (75-99)
[2019-02-22 14:17] LABS: ALT 17 U/L (4-34); AST 17 U/L (14-36); African American GFR (CKD) >90 (>60 ml/min/1.73 sqM); Albumin 3.8 g/dL (3.5-5.0); Alkaline Phosphatase 98 U/L (38-126); Anion Gap 13 mmol/L; Blood Urea Nitrogen 13 mg/dL (7-17); Calcium 9.3 mg/dL (8.4-10.2); Carbon Dioxide 17 mmol/L (22-30); Chloride 103 mmol/L (98-107); Glucose 290 mg/dL (74-99); Non-African American GFR(CKD) >90 (>60 ml/min/1.73 sqM); Potassium 3.6 mmol/L (3.5-5.1); Sodium 133 mmol/L (137-145); Total Bilirubin 1.3 mg/dL (0.2-1.3); Total Protein 6.4 g/dL (6.3-8.2)
[2019-02-22 15:03] LABS: Glucose,Whole Blood 357 mg/dL (75-99)
[2019-02-22 15:59] LABS: Glucose,Whole Blood 311 mg/dL (75-99)
[2019-02-22 17:06] LABS: Glucose,Whole Blood 233 mg/dL (75-99)
[2019-02-22 18:00] LABS: Glucose,Whole Blood 277 mg/dL (75-99)
[2019-02-22 19:03] LABS: Glucose,Whole Blood 325 mg/dL (75-99)
[2019-02-22 20:02] LABS: Glucose,Whole Blood 301 mg/dL (75-99)
[2019-02-22] MEDS ORDERED: ATORVASTATIN 20 MG TAB PO SCH (21:00)
[2019-02-22 21:38] LABS: ALT 15 U/L (4-34); AST 17 U/L (14-36); African American GFR (CKD) >90 (>60 ml/min/1.73 sqM); Albumin 3.1 g/dL (3.5-5.0); Alkaline Phosphatase 84 U/L (38-126); Anion Gap 9 mmol/L; Blood Urea Nitrogen 15 mg/dL (7-17); Carbon Dioxide 17 mmol/L (22-30); Chloride 105 mmol/L (98-107); Glucose 296 mg/dL (74-99); Non-African American GFR(CKD) >90 (>60 ml/min/1.73 sqM); Potassium 3.6 mmol/L (3.5-5.1); Sodium 131 mmol/L (137-145); Total Bilirubin 0.8 mg/dL (0.2-1.3); Total Protein 5.5 g/dL (6.3-8.2)
[2019-02-22 22:08] LABS: Glucose,Whole Blood 274 mg/dL (75-99)
--- NOTE | 2019-02-22 22:15 | P.HPIM ---
History of Present Illness H&P Date: 02/22/19 Chief Complaint: Height sugars Hospital course: This is a 28-year-old white female who follows with Dr. Dupont. Patient was 0 September of last year and diagnosed with diabetic ketoacidosis and was sent home on insulin 7030. Patient is doing better and his family doctor cystoscopy this note to metformin. Which she she is taking 2-3 months. During the [place] holidays patient started eating extra cavity sugar cookies etc. Sugars started to run high. Given her sugars up in 400s. Found to be in diabetic ketoacidosis. Put on insulin drip. Feels tired rundown. No fever no chills. No abdominal pain. no evidence of infection. On insulin drip. Review of systems: GEN.: Tired EYES: None HEENT: None NECK: None RESPIRATORY: None CARDIOVASCULAR: None GASTROINTESTINAL: None GENITOURINARY: Polyuria MUSCULOSKELETAL: None LYMPHATICS: None HEMATOLOGICAL: None PSYCHIATRY: None NEUROLOGICAL: None Past medical history to include: Diabetes mellitus type 1, obesity, hidradenitis, muscular dystrophy-myofibrillar myopathy type I, questionable nonischemic cardiomyopathy, depression Social history: Smokes a pack a day for a few years. Lives with HER-2 children. Not employed. Alcohol occasionally. Physical examination: VITAL SIGNS: 99, 18, 96/49, 98% room air GENERAL: 39.9, laying in bed awake but tired. EYES: Pupils equal. Conjunctiva normal. HEENT: External appearance of nose and ears normal, oral cavity grossly normal. NECK: JVD not raised; masses not palpable. HEART: First and second heart sounds are normal; no edema. LUNGS: Respiratory rate normal; clear to auscultation. ABDOMEN: Soft, nontender, liver spleen not palpable, no masses palpable. PSYCH: Alert and oriented x3; mood and affect normal. NEUROLOGICAL: Cranial nerves grossly intact; no facial asymmetry, power and sensation grossly intact. LYMPHATICS: No lymph nodes palpable in the axilla and neck INVESTIGATIONS, reviewed in the clinical context: White count 13.9 pressure 4.5 bicarb 8 blood glucose 508 Serum acetone positive Assessment: -Second episode of diabetic ketoacidosis in a patient who's been diagnosed with diabetes type 1, patient was discharged on insulin in September 2018. Had been doing well. Has been switched over to oral metformin. Patient been nonco mpliant with her diet particularly with taking excessive calories and sugar. Now readmitted with diabetic ketoacidosis -Obesity BMI 39.9 -Leukocytosis from DKA. no evidence of infection -Chronic nicotine dependence cigarette smoker Plan: Patient's goal insulin drip. IV fluids and insulin drip protocol is being followed. Lovenox for DVT prophylaxis. Patient will be put on Insulin 70/30 to be discharged home. This was discussed at length with the patient. Patient be seen by the dietitian. Smoke cessation counseling: This was done with the patient. Nicotine patch is being given. 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, non ischemic cardiomyopathy History of Any Multi-Drug Resistant Organisms: None Reported Past Surgical History: Ear Surgery, Tonsillectomy Past Anesthesia/Blood Transfusion Reactions: No Reported Reaction Past Psychological History: No Psychological Hx Reported, Depression Smoking Status: Current every day smoker Past Alcohol Use History: Occasional Past Drug Use History: None Reported - Past Family History Father Family Medical History: Diabetes Mellitus Mother Family Medical History: Coronary Artery Disease (CAD) Medications and Allergies Home Medications Medication Instructions Recorded Confirmed Type Atorvastatin [Lipitor] 20 mg PO HS 02/22/19 02/22/19 History Cinnamon Bark [Cinnamon] 1,000 mg PO DAILY 02/22/19 02/22/19 History Lisinopril 20 mg PO DAILY 02/22/19 02/22/19 History metFORMIN HCL [Glucophage] 1,000 mg PO BID 02/22/19 02/22/19 History Allergies Allergy/AdvReac Type Severity Reaction Status Date / Time No Known Allergies Allergy Verified 02/22/19 09:21 Physical Exam Vitals: Vital Signs Temp Pulse Pulse Resp BP BP Pulse Ox 02/22/19 09:30 98.6 F 66 16 118/58 97 02/22/19 04:00 99 F 18 96/49 98 02/21/19 23:55 83 18 115/55 98 02/21/19 21:51 97.5 F L 96 18 121/88 95 Intake and Output 02/21/19 02/22/19 02/22/19 22:59 06:59 14:59 Intake Total 1255.652 14.847 Balance 1255.652 14.847 Intake: Intake, IV Titration 1055.652 14.847 Amount D5-0.45% NaCl with KCl 600 20Meq/l 1,000 ml @ 150 mls/hr IV .Q6H40M [facility] Rx# :[id number] Insulin Regular 100 unit 55.652 14.847 In Sodium Chloride 0.9% 100 ml @ Per Protocol IV .Q0M [facility] Rx#:[id number] Sodium Chloride 0.9% 1, 400 000 ml @ 200 mls/hr IV . Q5H [facility] Rx#:[id number] Oral 200 Other: # Voids 1 Weight 114.124 kg 115.5 kg Results CBC & Chem 7: 02/21/19 22:28 02/22/19 21:16 Labs: Abnormal Lab Results - Last 24 Hours (Table) 02/21/19 02/21/19 02/21/19 Range/Units 22:03 22:28 22:28 WBC 13.9 H (3.8-10.6) k/uL RBC 5.63 H (3.80-5.40) m/uL Hgb 16.5 H (11.4-16.0) gm/dL Hct 49.3 H (34.0-46.0) % Neutrophils # 11.8 H (1.3-7.7) k/uL VBG pH (7.31-7.41) VBG pCO2 (37-51) mmHg VBG HCO3 (24-28) mmol/L Sodium (137-145) mmol/L Chloride (98-107) mmol/L Carbon Dioxide 8 L* (22-30) mmol/L Creatinine (0.52-1.04) mg/dL Glucose 508 H* (74-99) mg/dL POC Glucose (mg/dL) 469 H (75-99) mg/dL Osmolality 317 H (280-301) mosm/kg Phosphorus (2.5-4.5) mg/dL Alkaline Phosphatase 137 H (38-126) U/L Urine Protein (Negative) Urine Glucose (UA) (Negative) Urine Ketones (Negative) Urine Blood (Negative) Urine RBC (0-5) /hpf Urine Bacteria (None) /hpf Urine Mucus (None) /hpf 02/21/19 02/21/19 02/21/19 Range/Units 22:28 22:28 23:37 WBC (3.8-10.6) k/uL RBC (3.80-5.40) m/uL Hgb (11.4-16.0) gm/dL Hct (34.0-46.0) % Neutrophils # (1.3-7.7) k/uL VBG pH (7.31-7.41) VBG pCO2 (37-51) mmHg VBG HCO3 (24-28) mmol/L Sodium (137-145) mmol/L Chloride (98-107) mmol/L Carbon Dioxide (22-30) mmol/L Creatinine (0.52-1.04) mg/dL Glucose (74-99) mg/dL POC Glucose (mg/dL) 458 H (75-99) mg/dL Osmolality (280-301) mosm/kg Phosphorus 4.7 H (2.5-4.5) mg/dL Alkaline Phosphatase (38-126) U/L Urine Protein Trace H (Negative) Urine Glucose (UA) 4+ H (Negative) Urine Ketones 4+ H (Negative) Urine Blood Moderate H (Negative) Urine RBC 7 H (0-5) /hpf Urine Bacteria Rare H (None) /hpf Urine Mucus Rare H (None) /hpf 02/22/19 02/22/19 02/22/19 Range/Units 00:21 00:57 02:06 WBC (3.8-10.6) k/uL RBC (3.80-5.40) m/uL Hgb (11.4-16.0) gm/dL Hct (34.0-46.0) % Neutrophils # (1.3-7.7) k/uL VBG pH (7.31-7.41) VBG pCO2 (37-51) mmHg VBG HCO3 (24-28) mmol/L Sodium (137-145) mmol/L Chloride (98-107) mmol/L Carbon Dioxide (22-30) mmol/L Creatinine (0.52-1.04) mg/dL Glucose (74-99) mg/dL POC Glucose (mg/dL) 446 H 296 H 260 H (75-99) mg/dL Osmolality (280-301) mosm/kg Phosphorus (2.5-4.5) mg/dL Alkaline Phosphatase (38-126) U/L Urine Protein (Negative) Urine Glucose (UA) (Negative) Urine Ketones (Negative) Urine Blood (Negative) Urine RBC (0-5) /hpf Urine Bacteria (None) /hpf Urine Mucus (None) /hpf 02/22/19 02/22/19 02/22/19 Range/Units 02:14 02:54 03:09 WBC (3.8-10.6) k/uL RBC (3.80-5.40) m/uL Hgb (11.4-16.0) gm/dL Hct (34.0-46.0) % Neutrophils # (1.3-7.7) k/uL VBG pH 7.25 L (7.31-7.41) VBG pCO2 27 L (37-51) mmHg VBG HCO3 11 L (24-28) mmol/L Sodium (137-145) mmol/L Chloride 109 H (98-107) mmol/L Carbon Dioxide 9 L* (22-30) mmol/L Creatinine 0.48 L (0.52-1.04) mg/dL Glucose 267 H (74-99) mg/dL POC Glucose (mg/dL) 279 H (75-99) mg/dL Osmolality (280-301) mosm/kg Phosphorus (2.5-4.5) mg/dL Alkaline Phosphatase (38-126) U/L Urine Protein (Negative) Urine Glucose (UA) (Negative) Urine Ketones (Negative) Urine Blood (Negative) Urine RBC (0-5) /hpf Urine Bacteria (None) /hpf Urine Mucus (None) /hpf 02/22/19 02/22/19 02/22/19 Range/Units 04:04 05:02 05:27 WBC (3.8-10.6) k/uL RBC (3.80-5.40) m/uL Hgb (11.4-16.0) gm/dL Hct (34.0-46.0) % Neutrophils # (1.3-7.7) k/uL VBG pH (7.31-7.41) VBG pCO2 (37-51) mmHg VBG HCO3 (24-28) mmol/L Sodium 136 L (137-145) mmol/L Chloride (98-107) mmol/L Carbon Dioxide 14 L (22-30) mmol/L Creatinine 0.43 L (0.52-1.04) mg/dL Glucose 215 H (74-99) mg/dL POC Glucose (mg/dL) 217 H 213 H (75-99) mg/dL Osmolality (280-301) mosm/kg Phosphorus (2.5-4.5) mg/dL Alkaline Phosphatase (38-126) U/L Urine Protein (Negative) Urine Glucose (UA) (Negative) Urine Ketones (Negative) Urine Blood (Negative) Urine RBC (0-5) /hpf Urine Bacteria (None) /hpf Urine Mucus (None) /hpf 02/22/19 02/22/19 02/22/19 Range/Units 06:02 06:30 07:57 WBC (3.8-10.6) k/uL RBC (3.80-5.40) m/uL Hgb (11.4-16.0) gm/dL Hct (34.0-46.0) % Neutrophils # (1.3-7.7) k/uL VBG pH (7.31-7.41) VBG pCO2 (37-51) mmHg VBG HCO3 (24-28) mmol/L Sodium (137-145) mmol/L Chloride (98-107) mmol/L Carbon Dioxide (22-30) mmol/L Creatinine (0.52-1.04) mg/dL Glucose (74-99) mg/dL POC Glucose (mg/dL) 216 H 243 H 202 H (75-99) mg/dL Osmolality (280-301) mosm/kg Phosphorus (2.5-4.5) mg/dL Alkaline Phosphatase (38-126) U/L Urine Protein (Negative) Urine Glucose (UA) (Negative) Urine Ketones (Negative) Urine Blood (Negative) Urine RBC (0-5) /hpf Urine Bacteria (None) /hpf Urine Mucus (None) /hpf 02/22/19 02/22/19 Range/Units 08:58 09:58 WBC (3.8-10.6) k/uL RBC (3.80-5.40) m/uL Hgb (11.4-16.0) gm/dL Hct (34.0-46.0) % Neutrophils # (1.3-7.7) k/uL VBG pH (7.31-7.41) VBG pCO2 (37-51) mmHg VBG HCO3 (24-28) mmol/L Sodium (137-145) mmol/L Chloride (98-107) mmol/L Carbon Dioxide (22-30) mmol/L Creatinine (0.52-1.04) mg/dL Glucose (74-99) mg/dL POC Glucose (mg/dL) 198 H 203 H (75-99) mg/dL Osmolality (280-301) mosm/kg Phosphorus (2.5-4.5) mg/dL Alkaline Phosphatase (38-126) U/L Urine Protein (Negative) Urine Glucose (UA) (Negative) Urine Ketones (Negative) Urine Blood (Negative) Urine RBC (0-5) /hpf Urine Bacteria (None) /hpf Urine Mucus (None) /hpf Thrombosis Risk Factor Assmnt - Choose All That Apply Each Factor Represents 1 point: Obesity (BMI >25) Other Risk Factors: No Thrombosis Risk Factor Assessment Total Risk Factor Score: 1 Thrombosis Risk Factor Assessment Level: Low Risk
[2019-02-22] MEDS ORDERED: INSULIN NPH 300 UNIT/3 ML VIAL SQ SCH (23:00)
[2019-02-23] LABS: Glucose,Whole Blood 272 mg/dL (75-99)
[2019-02-23] MEDS: NICOTINE 21MG/24HR PATCH TRANSDERM SCH ×2 (01:06→09:28)
[2019-02-23 02:24] LABS: Glucose,Whole Blood 329 mg/dL (75-99)
[2019-02-23 06:18] LABS: Glucose,Whole Blood 342 mg/dL (75-99)
[2019-02-23 06:46] LABS: African American GFR (CKD) >90 (>60 ml/min/1.73 sqM); Anion Gap 11 mmol/L; Blood Urea Nitrogen 10 mg/dL (7-17); Carbon Dioxide 15 mmol/L (22-30); Chloride 104 mmol/L (98-107); Glucose 362 mg/dL (74-99); Non-African American GFR(CKD) >90 (>60 ml/min/1.73 sqM); Potassium 4.1 mmol/L (3.5-5.1); Sodium 130 mmol/L (137-145)
[2019-02-23] MEDS: metFORMIN 500 MG TAB PO SCH (06:49)
[2019-02-23] MEDS ORDERED: INSULN ASP PRT/INSULIN ASPART 100 UNIT/ML 10 ML VIAL SQ SCH ×2 (07:30→12:30)
[2019-02-23] MEDS: ENOXAPARIN 40 MG/0.4 ML SYRINGE SQ SCH (09:37)
[2019-02-23] MEDS: LISINOPRIL 20 MG TAB PO SCH (09:37)
[2019-02-23 12:00] LABS: Glucose,Whole Blood 306 mg/dL (75-99)
[2019-02-23 14:00] LABS: Glucose,Whole Blood 289 mg/dL (75-99)
[2019-02-23 14:14] VITALS: TEMP 98.2
[2019-02-23 16:16] VITALS: BP 114/60; PULSE 99; RESP 16
[2019-02-23 16:38] LABS: Glucose,Whole Blood 259 mg/dL (75-99)
--- NOTE | 2019-02-24 00:12 | P.DS ---
Providers Date of admission: 02/21/19 23:43 Expected date of discharge: 02/23/19 Attending physician: Yunior Morales Primary care physician: Jeromy Dupont [facility] Course: Chief Complaint: high sugars Hospital course: This is a 28-year-old white female who follows with Dr. Dupont. Patient was 0 September of last year and diagnosed with diabetic ketoacidosis and was sent home on insulin 7030. Patient is doing better and his family doctor cystoscopy this note to metformin. Which she she is taking 2-3 months. During the holidays patient started eating extra cavity sugar cookies etc. Sugars started to run high. Given her sugars up in 400s. Found to be in diabetic ketoacidosis. Put on insulin drip. Feels tired rundown. No fever no chills. No abdominal pain. no evidence of infection. today-feeling better. Patient is put on Novolin 70/30 to go home. Care was discussed at length with the patient. Sugars are still running on the higher side. As her dose was adjusted accordingly. Counseling and smoking. And diet. Discussion and discharge planning more than 35 minutes Physical examination: VITAL SIGNS: 98.2, 99, 16, 11 4/60, 96% room air GENERAL: sitting up, comfortable EYES: Pupils equal. Conjunctiva normal. HEENT: External appearance of nose and ears normal, oral cavity grossly normal. NECK: JVD not raised; masses not palpable. HEART: First and second heart sounds are normal; no edema. LUNGS: Respiratory rate normal; clear to auscultation. ABDOMEN: Soft, nontender, liver spleen not palpable, no masses palpable. PSYCH: Alert and oriented x3; mood and affect normal. INVESTIGATIONS, reviewed in the clinical context: Potassium 4.1 crit 0.3 to Previous testing White count 13.9 pressure 4.5 bicarb 8 blood glucose 508 Serum acetone positive Assessment: -Second episode of diabetic ketoacidosis in a patient who's been diagnosed with diabetes type 1, patient was discharged on insulin in September 2018. Had been doing well. Has been switched over to oral metformin. Patient been noncompliant with her diet particularly with taking excessive calories and sugar. Now readmitted with diabetic ketoacidosis -Obesity BMI 39.9 -Leukocytosis from DKA. no evidence of infection -Chronic nicotine dependence cigarette smoker disposition: Home Patient Condition at Discharge: Stable Plan - Discharge Summary Discharge Rx Participant: Yes New Discharge Prescriptions: New Nicotine 21Mg/24Hr Patch [Habitrol] 1 patch TRANSDERM DAILY #14 patch Insulin NPH Hum/Reg Insulin Hm [NovoLIN 70-30 100 UNIT/ML VIAL] 50 unit SQ AC-BID #1 vial Insulin NPH Hum/Reg Insulin Hm [NovoLIN 70-30 100 UNIT/ML VIAL] 25 unit SQ AC-LUNCH #1 vial Continue Lisinopril 20 mg PO DAILY metFORMIN HCL [Glucophage] 1,000 mg PO BID Atorvastatin [Lipitor] 20 mg PO HS No Action Cinnamon Bark [Cinnamon] 1,000 mg PO DAILY Discharge Medication List Atorvastatin [Lipitor] 20 mg PO HS 02/22/19 [History] Cinnamon Bark [Cinnamon] 1,000 mg PO DAILY 02/22/19 [History] Lisinopril 20 mg PO DAILY 02/22/19 [History] metFORMIN HCL [Glucophage] 1,000 mg PO BID 02/22/19 [History] Insulin NPH Hum/Reg Insulin Hm [NovoLIN 70-30 100 UNIT/ML VIAL] 25 unit SQ AC- LUNCH #1 vial 02/23/19 [Rx] Insulin NPH Hum/Reg Insulin Hm [NovoLIN 70-30 100 UNIT/ML VIAL] 50 unit SQ AC- BID #1 vial 02/23/19 [Rx] Nicotine 21Mg/24Hr Patch [Habitrol] 1 patch TRANSDERM DAILY #14 patch 02/23/19 [Rx] Follow up Appointment(s)/Referral(s): Ralf Lu MD [Medical Doctor] - 1 Week (Please call office to schedule follow up appointment ) Jeromy Dupont MD [Primary Care Provider] - 02/25/19 10:00 am Patient Instructions/Handouts: Diabetic Ketoacidosis (DC), Type 1 Diabetes in Adults: New Diagnosis (DC), How to Give an Insulin Injection (DC) Activity/Diet/Wound Care/Special Instructions: Accu-Cheks every before meals and at bedtime-keep a log Discharge Disposition: HOME SELF-CARE
== END 2019-02-23 17:22 | disposition home or self-care (01) | DRG 638 ==
LOC: EC 21:41 → 3SCARD 23:43
PROVIDERS: ADMIT Hospitalist; ATTEND Hospitalist
DX: E10.10 Type 1 diabetes mellitus with ketoacidosis without coma (principal); I42.8 Other cardiomyopathies; E66.9 Obesity, unspecified; F17.210 Nicotine dependence, cigarettes, uncomplicated; G71.00 Muscular dystrophy, unspecified; Z68.39 Body mass index [BMI] 39.0-39.9, adult; Z79.4 Long term (current) use of insulin; Z79.899 Other long term (current) drug therapy; Z82.49 Family history of ischemic heart disease and other diseases of the circulatory system; Z83.3 Family history of diabetes mellitus; Z91.11 Patient's noncompliance with dietary regimen
CPT/HCPCS: 36415; 80048; 80051; 80053; 81001; 82009; 82565; 82803; 82947; 83036; 83605; 83735; 83930; 84100; 84520; 85025; 87040; 87502; 96361; 96374; 99291

== ENCOUNTER 2019-02-28 15:28 | Emergency (ER) | payer OTHER ==
[2019-02-28 15:50] LABS: Glucose,Whole Blood 115 mg/dL (75-99)
[2019-02-28] MEDS ORDERED: LOPERAMIDE 2 MG CAP PO STA (16:03)
--- NOTE | 2019-02-28 16:07 | ED ---
General Adult HPI - General Chief complaint: Recheck/Abnormal Lab/Rx Stated complaint: Hypoglycemia Time Seen by Provider: 02/28/19 15:53 Source: patient Mode of arrival: ambulatory Limitations: no limitations - History of Present Illness Initial comments: 28 year-old female patient presents to the emergency department today for evaluation of low blood sugar and dizziness. Patient was diagnosed with diabetes in November. States that she was recently discharged from the hospital on 02/23/2019 after being admitted for DKA. Patient states that her insulin dosages were increased at that visit. States that she has dramatically changed her diet since being discharged now her sugars have been going too low. She states that she has had sugars ranging from 70-120. States that her ranges between 130 and 160. States that she was instructed to present here by her physician. Patient states she's been having diarrhea for the last 2 days. States whenever she eats she immediately has a bowel movement. She denies any hematochezia or melena. Denies any nausea or vomiting. Denies any recent antibiotic use. Denies any sick contacts or recent travel. Patient denies any recent rash, fever, chills, shortness breath, chest pain, abdominal pain, back pain, numbness, tingling, dizziness, weakness, hematuria, dysuria, urinary urgency, urinary frequency, headache, visual changes, or any other complaints. - Related Data Home Medications Medication Instructions Recorded Confirmed Atorvastatin [Lipitor] 20 mg PO HS 02/22/19 02/22/19 Cinnamon Bark [Cinnamon] 1,000 mg PO DAILY 02/22/19 02/22/19 Lisinopril 20 mg PO DAILY 02/22/19 02/22/19 metFORMIN HCL [Glucophage] 1,000 mg PO BID 02/22/19 02/22/19 Previous Rx's Medication Instructions Recorded Insulin NPH Hum/Reg Insulin Hm 25 unit SQ AC-LUNCH #1 vial 02/23/19 [NovoLIN 70-30 100 UNIT/ML VIAL] Insulin NPH Hum/Reg Insulin Hm 50 unit SQ AC-BID #1 vial 02/23/19 [NovoLIN 70-30 100 UNIT/ML VIAL] Nicotine 21Mg/24Hr Patch [Habitrol] 1 patch TRANSDERM DAILY #14 patch 02/23/19 Allergies Allergy/AdvReac Type Severity Reaction Status Date / Time No Known Allergies Allergy Verified 02/28/19 15:51 Review of Systems ROS Statement: Those systems with pertinent positive or pertinent negative responses have been documented in the HPI. ROS Other: All systems not noted in ROS Statement are negative. 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, non ischemic cardiomyopathy History of Any Multi-Drug Resistant Organisms: None Reported Past Surgical History: Ear Surgery, Tonsillectomy Past Anesthesia/Blood Transfusion Reactions: No Reported Reaction Past Psychological History: No Psychological Hx Reported, Depression Smoking Status: Current every day smoker Past Alcohol Use History: Occasional Past Drug Use History: None Reported - Past Family History Father Family Medical History: Diabetes Mellitus Mother Family Medical History: Coronary Artery Disease (CAD) General Exam Limitations: no limitations General appearance: alert, in no apparent distress, other (Physical well- developed, well-nourished adult female patient in no acute distress. Vital signs upon presentation are temperature 97.9F, pulse 89, respirations 20, blood pressure 135/86, pulse ox 98% on room air) Eye exam: Present: normal appearance, PERRL, EOMI. Absent: scleral icterus, conjunctival injection, periorbital swelling ENT exam: Present: normal exam, normal oropharynx, mucous membranes moist Respiratory exam: Present: normal lung sounds bilaterally. Absent: respiratory distress, wheezes, rales, rhonchi, stridor Cardiovascular Exam: Present: regular rate, normal rhythm, normal heart sounds. Absent: systolic murmur, diastolic murmur, rubs, gallop, clicks GI/Abdominal exam: Present: soft, normal bowel sounds. Absent: distended, t enderness, guarding, rebound, rigid Neurological exam: Present: alert, oriented X3, CN II-XII intact Psychiatric exam: Present: normal affect, normal mood Skin exam: Present: warm, dry, intact, normal color. Absent: rash Course Vital Signs 02/28/19 02/28/19 15:49 18:08 Temperature 97.9 F 97.1 F L Pulse Rate 89 81 Respiratory 20 17 Rate Blood Pressure 135/86 124/92 O2 Sat by Pulse 98 96 Oximetry Medical Decision Making - Medical Decision Making 28 year-old female patient presented to the emergency department today for evaluation of low blood sugar and feeling shaky. Physical examination is unrema rkable. She is neurologically intact focal deficits. Blood sugars in the department have been 115, 125, and 150 subsequently. She is given IV fluids. We will discharge home. We will switch insulin dosing to 25 units per meal. She is given Imodium for improvement of diarrhea. She is instructed to follow- up with the primary care physician for further evaluation as soon as possible. She is instructed to keep a log of her meals and blood sugars. Return parameters were discussed in detail. She verbalizes understanding and agrees with this plan. - Lab Data Result diagrams: 02/28/19 16:32 02/28/19 16:32 Lab Results 02/28/19 02/28/19 02/28/19 Range/Units 15:48 16:32 16:32 WBC 9.6 (3.8-10.6) k/uL RBC 4.58 (3.80-5.40) m/uL Hgb 13.8 (11.4-16.0) gm/dL Hct 39.6 (34.0-46.0) % MCV 86.5 (80.0-100.0) fL MCH 30.1 (25.0-35.0) pg MCHC 34.8 (31.0-37.0) g/dL RDW 13.0 (11.5-15.5) % Plt Count 260 (150-450) k/uL Neutrophils % 64 % Lymphocytes % 28 % Monocytes % 5 % Eosinophils % 2 % Basophils % 1 % Neutrophils # 6.1 (1.3-7.7) k/uL Lymphocytes # 2.7 (1.0-4.8) k/uL Monocytes # 0.4 (0-1.0) k/uL Eosinophils # 0.2 (0-0.7) k/uL Basophils # 0.1 (0-0.2) k/uL Sodium 138 (137-145) mmol/L Potassium 3.9 (3.5-5.1) mmol/L Chloride 105 (98-107) mmol/L Carbon Dioxide 27 (22-30) mmol/L Anion Gap 6 mmol/L BUN 12 (7-17) mg/dL Creatinine 0.27 L (0.52-1.04) mg/dL Est GFR (CKD-EPI)AfAm >90 (>60 ml/min/1.73 sqM) Est GFR (CKD-EPI)NonAf >90 (>60 ml/min/1.73 sqM) Glucose 125 H (74-99) mg/dL POC Glucose (mg/dL) 115 H (75-99) mg/dL POC Glu Coordinator Of Genetic Services ID Calcium 9.2 (8.4-10.2) mg/dL Phosphorus 4.2 (2.5-4.5) mg/dL Magnesium 1.5 L (1.6-2.3) mg/dL Total Bilirubin 0.6 (0.2-1.3) mg/dL AST 42 H (14-36) U/L ALT 55 H (4-34) U/L Alkaline Phosphatase 72 (38-126) U/L Total Protein 6.1 L (6.3-8.2) g/dL Albumin 3.7 (3.5-5.0) g/dL Urine Color Urine Appearance (Clear) Urine pH (5.0-8.0) Ur Specific [place] (1.001-1.035) Urine Protein (Negative) Urine Glucose (UA) (Negative) Urine Ketones (Negative) Urine Blood (Negative) Urine Nitrite (Negative) Urine Bilirubin (Negative) Urine Urobilinogen (<2.0) mg/dL Ur Leukocyte Esterase (Negative) Urine RBC (0-5) /hpf Urine WBC (0-5) /hpf Ur Squamous Epith Cells (0-4) /hpf Urine Mucus (None) /hpf 02/28/19 02/28/19 Range/Units 16:32 18:02 WBC (3.8-10.6) k/uL RBC (3.80-5.40) m/uL Hgb (11.4-16.0) gm/dL Hct (34.0-46.0) % MCV (80.0-100.0) fL MCH (25.0-35.0) pg MCHC (31.0-37.0) g/dL RDW (11.5-15.5) % Plt Count (150-450) k/uL Neutrophils % % Lymphocytes % % Monocytes % % Eosinophils % % Basophils % % Neutrophils # (1.3-7.7) k/uL Lymphocytes # (1.0-4.8) k/uL Monocytes # (0-1.0) k/uL Eosinophils # (0-0.7) k/uL Basophils # (0-0.2) k/uL Sodium (137-145) mmol/L Potassium (3.5-5.1) mmol/L Chloride (98-107) mmol/L Carbon Dioxide (22-30) mmol/L Anion Gap mmol/L BUN (7-17) mg/dL Creatinine (0.52-1.04) mg/dL Est GFR (CKD-EPI)AfAm (>60 ml/min/1.73 sqM) Est GFR (CKD-EPI)NonAf (>60 ml/min/1.73 sqM) Glucose (74-99) mg/dL POC Glucose (mg/dL) 155 H (75-99) mg/dL POC Glu Coordinator Of [employer] Services ID Kate Fields Calcium (8.4-10.2) mg/dL Phosphorus (2.5-4.5) mg/dL Magnesium (1.6-2.3) mg/dL Total Bilirubin (0.2-1.3) mg/dL AST (14-36) U/L ALT (4-34) U/L Alkaline Phosphatase (38-126) U/L Total Protein (6.3-8.2) g/dL Albumin (3.5-5.0) g/dL Urine Color Yellow Urine Appearance Cloudy H (Clear) Urine pH 5.5 (5.0-8.0) Ur Specific [place] 1.022 (1.001-1.035) Urine Protein Trace H (Negative) Urine Glucose (UA) Negative (Negative) Urine Ketones Negative (Negative) Urine Blood Negative (Negative) Urine Nitrite Negative (Negative) Urine Bilirubin Negative (Negative) Urine Urobilinogen <2.0 (<2.0) mg/dL Ur Leukocyte Esterase Large H (Negative) Urine RBC 4 (0-5) /hpf Urine WBC 12 H (0-5) /hpf Ur Squamous Epith Cells 11 H (0-4) /hpf Urine Mucus Occasional H (None) /hpf Disposition Clinical Impression: Diarrhea, Diabetes Disposition: HOME SELF-CARE Condition: Good Instructions (If sedation given, give patient instructions): Type 2 Diabetes in Adults: New Diagnosis (ED), Meal Planning with Diabetes Exchanges (DC) Additional Instructions: Decrease insulin dosage to 25units at each meal. Monitor blood sugars closely. Keep a log. If sugars continue to drop below 100, decrease to 15 units with each meal. Follow up with your primary care physician for recheck as soon as possible. Return to the emergency department immediately for any new, worsening, or concerning symptoms. Call [phone] to make an appointment for diabetes education. Is patient prescribed a controlled substance at d/c from ED?: No Referrals: Jeromy Dupont MD [Primary Care Provider] - 1-2 days Time of Disposition: 17:50
[2019-02-28 16:49] LABS: Basophils # (A) 0.1 k/uL (0-0.2); Basophils % (A) 1 %; Eosinophils # (A) 0.2 k/uL (0-0.7); Eosinophils % (A) 2 %; HCT 39.6 % (34.0-46.0); HGB 13.8 gm/dL (11.4-16.0); Lymphocytes # (A) 2.7 k/uL (1.0-4.8); Lymphocytes % (A) 28 %; MCH 30.1 pg (25.0-35.0); MCHC 34.8 g/dL (31.0-37.0); MCV 86.5 fL (80.0-100.0); Mean Platelet Volume 8.6; Monocytes # (A) 0.4 k/uL (0-1.0); Monocytes % (A) 5 %; Neutrophils # (A) 6.1 k/uL (1.3-7.7); Neutrophils % (A) 64 %; Platelet Count 260 k/uL (150-450); RBC 4.58 m/uL (3.80-5.40); WBC 9.6 k/uL (3.8-10.6)
[2019-02-28 16:55] LABS: Appearance,Urine Cloudy (Clear); Bilirubin,Urine Negative (Negative); Blood,Urine Negative (Negative); Color,Urine Yellow; Glucose,Urine (UA) Negative (Negative); Ketones,Urine Negative (Negative); Leukocyte Esterase,Urine Large (Negative); Mucus,Urine Occasional /hpf; Nitrite,Urine Negative (Negative); PH, Urine 5.5 (5.0-8.0); Protein,Urine Trace (Negative); RBC,Urine 4 /hpf (0-5); Specific Gravity,Urine 1.022 (1.001-1.035); Squamous Epithelial Cell,Urine 11 /hpf (0-4); Urobilinogen,Urine <2.0 mg/dL (<2.0); WBC,Urine 12 /hpf (0-5)
[2019-02-28 17:01] LABS: ALT 55 U/L (4-34); AST 42 U/L (14-36); African American GFR (CKD) >90 (>60 ml/min/1.73 sqM); Albumin 3.7 g/dL (3.5-5.0); Alkaline Phosphatase 72 U/L (38-126); Anion Gap 6 mmol/L; Blood Urea Nitrogen 12 mg/dL (7-17); Calcium 9.2 mg/dL (8.4-10.2); Carbon Dioxide 27 mmol/L (22-30); Chloride 105 mmol/L (98-107); Glucose 125 mg/dL (74-99); Magnesium 1.5 mg/dL (1.6-2.3); Non-African American GFR(CKD) >90 (>60 ml/min/1.73 sqM); Phosphorus 4.2 mg/dL (2.5-4.5); Potassium 3.9 mmol/L (3.5-5.1); Sodium 138 mmol/L (137-145); Total Bilirubin 0.6 mg/dL (0.2-1.3); Total Protein 6.1 g/dL (6.3-8.2)
[2019-02-28 18:04] LABS: Glucose,Whole Blood 155 mg/dL (75-99)
[2019-02-28 18:14] VITALS: BP 124/92; PULSE 81; RESP 17; TEMP 97.1
== END 2019-02-28 18:14 | disposition home or self-care (01) ==
LOC: EC 15:28
DX: E11.649 Type 2 diabetes mellitus with hypoglycemia without coma (principal); I42.8 Other cardiomyopathies; R19.7 Diarrhea, unspecified; F17.200 Nicotine dependence, unspecified, uncomplicated; Z83.3 Family history of diabetes mellitus; Z79.84 Long term (current) use of oral hypoglycemic drugs; Z79.899 Other long term (current) drug therapy
CPT/HCPCS: 36415; 80053; 81001; 83735; 84100; 85025; 99284

== ENCOUNTER 2019-07-16 19:03 | Inpatient (IN) | payer OTHER ==
[2019-07-16 19:12] LABS: Glucose,Whole Blood 563 mg/dL (75-99)
[2019-07-16] MEDS ORDERED: ONDANSETRON 4 MG/2 ML VIAL IVP STA (19:30)
[2019-07-16] MEDS ORDERED: SODIUM CHLORIDE 0.9% 1,000 ML IV STA ×2 (19:30→20:28)
--- NOTE | 2019-07-16 19:45 | ED ---
General Adult HPI - General Chief complaint: Recheck/Abnormal Lab/Rx Stated complaint: high blood sugar Time Seen by Provider: 07/16/19 19:14 Source: patient Mode of arrival: ambulatory Limitations: no limitations - History of Present Illness Initial comments: Patient is a 28-year-old female, with history of DKA, presenting to the emergency Department with complaints of elevated blood sugars at home. Patient states she's been monitoring her blood sugars at home and they have been slowly rising over the past few days. She states she has been trying to get a clean diet but that has changed last few days. She admits to vomiting for most of today and still feeling nauseous. She states she took her blood sugar at home and it was over 600 according to her monitor. Patient admits to being very thirsty as well as nauseous. She denies some mild abdominal cramping, no sharp shooting pains. She denies any recent fever, chills, diarrhea. She denies chest pain, shortness of breath. She has no further complaints at this time. Upon arrival to the ER, patient was slightly tachycardia at 105, rest of vitals normal. Blood sugar in triage was 563. - Related Data Home Medications Medication Instructions Recorded Confirmed Atorvastatin [Lipitor] 20 mg PO HS 02/22/19 03/18/19 Cinnamon Bark [Cinnamon] 1,000 mg PO DAILY 02/22/19 03/18/19 Lisinopril 20 mg PO DAILY 02/22/19 03/18/19 metFORMIN HCL [Glucophage] 1,000 mg PO BID 02/22/19 03/18/19 Insulin NPH Hum/Reg Insulin Hm 25 unit SQ TID 03/18/19 03/18/19 [NovoLIN 70-30 100 UNIT/ML VIAL] Allergies Allergy/AdvReac Type Severity Reaction Status Date / Time No Known Allergies Allergy Verified 07/16/19 19:13 Review of Systems ROS Statement: Those systems with pertinent positive or pertinent negative responses have been documented in the HPI. ROS Other: All systems not noted in ROS Statement are negative. 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, non ischemic cardiomyopathy History of Any Multi-Drug Resistant Organisms: None Reported Past Surgical History: Ear Surgery, Tonsillectomy Past Anesthesia/Blood Transfusion Reactions: No Reported Reaction Past Psychological History: No Psychological Hx Reported, Depression Smoking Status: Current every day smoker Past Alcohol Use History: Occasional Past Drug Use History: None Reported - Past Family History Father Family Medical History: Diabetes Mellitus Mother Family Medical History: Coronary Artery Disease (CAD) General Exam - General Exam Comments Initial Comments: GENERAL: Appears fatigued and in no acute distress. HEAD: Atraumatic, normocephalic. EYES: Pupils equal round and reactive to light, extraocular movements intact, sclera anicteric, conjunctiva are normal. ENT: TMs normal, nares patent, oropharynx clear without exudates. Dry mucous membranes. NECK: Normal range of motion, supple without lymphadenopathy or JVD. LUNGS: Breath sounds clear to auscultation bilaterally and equal. No wheezes rales or rhonchi. HEART: Tachycardia rate and rhythm without murmurs, rubs or gallops. ABDOMEN: Soft, nontender, normoactive bowel sounds. No guarding, no rebound. No masses appreciated. : Deferred EXTREMITIES: Normal range of motion, no pitting or edema. No clubbing or cyanosis. NEUROLOGICAL: Cranial nerves II through XII grossly intact. Normal speech, normal gait. PSYCH: Normal mood, normal affect. SKIN: Warm, Dry, normal turgor, no rashes or lesions noted. Limitations: no limitations Course Vital Signs 07/16/19 07/16/19 19:11 20:50 Temperature 98.3 F Pulse Rate 105 H 80 Respiratory 18 18 Rate Blood Pressure 108/73 110/63 O2 Sat by Pulse 96 97 Oximetry Medical Decision Making - Medical Decision Making Patient is a 28-year-old female with history of DKA presenting with vomiting and high blood sugars for the past few days. Labs reveal leukocytosis 14.2, CO2 is 8, gap is 28, glucose is 543, potassium 5.4, sodium 132. Urine has 4+ ketones. Patient was given 2 L of fluids and Zofran and the ER. Patient will be started on insulin drip and standard DKA protocol. Patient will be admitted for DKA, Dr. Morales is accepting. Case discussed with Dr. Montelongo. - Lab Data Result diagrams: 07/16/19 19:50 07/16/19 19:50 Lab Results 07/16/19 07/16/19 07/16/19 Range/Units 19:10 19:50 19:50 WBC 14.2 H (3.8-10.6) k/uL RBC 5.41 H (3.80-5.40) m/uL Hgb 15.4 (11.4-16.0) gm/dL Hct 48.0 H (34.0-46.0) % MCV 88.7 (80.0-100.0) fL MCH 28.5 (25.0-35.0) pg MCHC 32.1 (31.0-37.0) g/dL RDW 12.6 (11.5-15.5) % Plt Count 269 (150-450) k/uL Neutrophils % 82 % Lymphocytes % 12 % Monocytes % 4 % Eosinophils % 1 % Basophils % 1 % Neutrophils # 11.6 H (1.3-7.7) k/uL Lymphocytes # 1.7 (1.0-4.8) k/uL Monocytes # 0.6 (0-1.0) k/uL Eosinophils # 0.1 (0-0.7) k/uL Basophils # 0.1 (0-0.2) k/uL Sodium (137-145) mmol/L Potassium (3.5-5.1) mmol/L Chloride (98-107) mmol/L Carbon Dioxide (22-30) mmol/L Anion Gap mmol/L BUN (7-17) mg/dL Creatinine (0.52-1.04) mg/dL Est GFR (CKD-EPI)AfAm (>60 ml/min/1.73 sqM) Est GFR (CKD-EPI)NonAf (>60 ml/min/1.73 sqM) Glucose (74-99) mg/dL POC Glucose (mg/dL) 563 H (75-99) mg/dL POC Glu Associate Professor Of Surgery ID Altamont, Flory Plasma Lactic Acid [place] (0.7-2.0) mmol/L Calcium (8.4-10.2) mg/dL Magnesium (1.6-2.3) mg/dL Total Bilirubin (0.2-1.3) mg/dL AST (14-36) U/L ALT (4-34) U/L Alkaline Phosphatase (38-126) U/L Total Protein (6.3-8.2) g/dL Albumin (3.5-5.0) g/dL Urine Color Light Yellow Urine Appearance Clear (Clear) Urine pH 5.5 (5.0-8.0) Ur Specific [place] 1.019 (1.001-1.035) Urine Protein Trace H (Negative) Urine Glucose (UA) 4+ H (Negative) Urine Ketones 4+ H (Negative) Urine Blood Negative (Negative) Urine Nitrite Negative (Negative) Urine Bilirubin Negative (Negative) Urine Urobilinogen <2.0 (<2.0) mg/dL Ur Leukocyte Esterase Trace H (Negative) Urine RBC <1 (0-5) /hpf Urine WBC 3 (0-5) /hpf Ur Squamous Epith Cells 1 (0-4) /hpf Hyaline Casts 4 H (0-2) /lpf Urine Mucus Rare H (None) /hpf Urine HCG, Qual (Not Detectd) Acetone, Qual (Negative) 07/16/19 07/16/19 07/16/19 Range/Units 19:50 19:50 19:50 WBC (3.8-10.6) k/uL RBC (3.80-5.40) m/uL Hgb (11.4-16.0) gm/dL Hct (34.0-46.0) % MCV (80.0-100.0) fL MCH (25.0-35.0) pg MCHC (31.0-37.0) g/dL RDW (11.5-15.5) % Plt Count (150-450) k/uL Neutrophils % % Lymphocytes % % Monocytes % % Eosinophils % % Basophils % % Neutrophils # (1.3-7.7) k/uL Lymphocytes # (1.0-4.8) k/uL Monocytes # (0-1.0) k/uL Eosinophils # (0-0.7) k/uL Basophils # (0-0.2) k/uL Sodium 132 L (137-145) mmol/L Potassium 5.4 H (3.5-5.1) mmol/L Chloride 96 L (98-107) mmol/L Carbon Dioxide 8 L* (22-30) mmol/L Anion Gap 28 mmol/L BUN 20 H (7-17) mg/dL Creatinine 0.68 (0.52-1.04) mg/dL Est GFR (CKD-EPI)AfAm >90 (>60 ml/min/1.73 sqM) Est GFR (CKD-EPI)NonAf >90 (>60 ml/min/1.73 sqM) Glucose 543 H* (74-99) mg/dL POC Glucose (mg/dL) (75-99) mg/dL POC Glu Associate Professor Of Surgery ID Plasma Lactic Acid [place] 1.1 (0.7-2.0) mmol/L Calcium 10.1 (8.4-10.2) mg/dL Magnesium 1.7 (1.6-2.3) mg/dL Total Bilirubin 1.5 H (0.2-1.3) mg/dL AST 24 (14-36) U/L ALT 20 (4-34) U/L Alkaline Phosphatase 93 (38-126) U/L Total Protein 7.7 (6.3-8.2) g/dL Albumin 4.9 (3.5-5.0) g/dL Urine Color Urine Appearance (Clear) Urine pH (5.0-8.0) Ur Specific [place] (1.001-1.035) Urine Protein (Negative) Urine Glucose (UA) (Negative) Urine Ketones (Negative) Urine Blood (Negative) Urine Nitrite (Negative) Urine Bilirubin (Negative) Urine Urobilinogen (<2.0) mg/dL Ur Leukocyte Esterase (Negative) Urine RBC (0-5) /hpf Urine WBC (0-5) /hpf Ur Squamous Epith Cells (0-4) /hpf Hyaline Casts (0-2) /lpf Urine Mucus (None) /hpf Urine HCG, Qual Not Detected (Not Detectd) Acetone, Qual Positive (Negative) Critical Care Time Critical Care Time: Yes Total Critical Care Time: 35 (Patient has history of DKA and arrived with elevated glucose as well as vomiting. Patient was examined, lab revealed glucose of almost 600, CO2 was 8. Patient was started on insulin drip and fluids in the ER. Standard DKA protocol was used. Patient was stable and transferred to unit.) Disposition Clinical Impression: Diabetic ketoacidosis, Vomiting Disposition: ADMITTED IP TO THIS HOSP Condition: Good Is patient prescribed a controlled substance at d/c from ED?: No Referrals: Jeromy Dupont MD [Primary Care Provider] - 1-2 days Decision Date: 07/16/19 Decision Time: 20:46
[2019-07-16 20:05] LABS: Basophils # (A) 0.1 k/uL (0-0.2); Basophils % (A) 1 %; Eosinophils # (A) 0.1 k/uL (0-0.7); Eosinophils % (A) 1 %; HGB 15.4 gm/dL (11.4-16.0); Lymphocytes # (A) 1.7 k/uL (1.0-4.8); Lymphocytes % (A) 12 %; MCH 28.5 pg (25.0-35.0); MCHC 32.1 g/dL (31.0-37.0); MCV 88.7 fL (80.0-100.0); Mean Platelet Volume 8.9; Monocytes # (A) 0.6 k/uL (0-1.0); Monocytes % (A) 4 %; Neutrophils # (A) 11.6 k/uL (1.3-7.7); Neutrophils % (A) 82 %; Platelet Count 269 k/uL (150-450); RBC 5.41 m/uL (3.80-5.40); RDW 12.6 % (11.5-15.5); WBC 14.2 k/uL (3.8-10.6)
[2019-07-16 20:11] LABS: Appearance,Urine Clear (Clear); Bilirubin,Urine Negative (Negative); Blood,Urine Negative (Negative); Color,Urine Light Yellow; Glucose,Urine (UA) 4+ (Negative); Hyaline Casts,Urine 4 /lpf (0-2); Leukocyte Esterase,Urine Trace (Negative); Mucus,Urine Rare /hpf; Nitrite,Urine Negative (Negative); PH, Urine 5.5 (5.0-8.0); Protein,Urine Trace (Negative); RBC,Urine <1 /hpf (0-5); Specific Gravity,Urine 1.019 (1.001-1.035); Squamous Epithelial Cell,Urine 1 /hpf (0-4); Urobilinogen,Urine <2.0 mg/dL (<2.0); WBC,Urine 3 /hpf (0-5)
[2019-07-16 20:12] LABS: Ketones,Urine 4+ (Negative)
[2019-07-16 20:20] LABS: ALT 20 U/L (4-34); AST 24 U/L (14-36); African American GFR (CKD) >90 (>60 ml/min/1.73 sqM); Albumin 4.9 g/dL (3.5-5.0); Alkaline Phosphatase 93 U/L (38-126); Anion Gap 28 mmol/L; Blood Urea Nitrogen 20 mg/dL (7-17); Calcium 10.1 mg/dL (8.4-10.2); Chloride 96 mmol/L (98-107); Magnesium 1.7 mg/dL (1.6-2.3); Non-African American GFR(CKD) >90 (>60 ml/min/1.73 sqM); Potassium 5.4 mmol/L (3.5-5.1); Sodium 132 mmol/L (137-145); Total Bilirubin 1.5 mg/dL (0.2-1.3); Total Protein 7.7 g/dL (6.3-8.2)
[2019-07-16 20:22] LABS: Carbon Dioxide 8 mmol/L (22-30)
[2019-07-16 20:24] LABS: Glucose 543 mg/dL (74-99)
[2019-07-16] MEDS ORDERED: INSULIN REGULAR BOLUS (FROM DRIP BAG) IV ONE (20:41)
[2019-07-16] MEDS: INSULIN REGULAR 100 UNIT in SODIUM CHLORIDE 0.9% 100 ML IV SCH (21:09)
[2019-07-16 21:27] LABS: Glucose,Whole Blood 426 mg/dL (75-99)
[2019-07-16 21:50] LABS: Glucose,Whole Blood 294 mg/dL (75-99)
[2019-07-16] MEDS: D5-0.45% NACL WITH KCL 20MEQ/L 1,000 ML IV SCH (22:15)
[2019-07-16 22:21] LABS: Glucose,Whole Blood 219 mg/dL (75-99)
[2019-07-16] MEDS: SODIUM CHLORIDE 0.9% 1,000 ML IV SCH (22:22)
[2019-07-16 23:17] LABS: Glucose,Whole Blood 209 mg/dL (75-99)
[2019-07-17 00:21] LABS: Glucose,Whole Blood 153 mg/dL (75-99)
[2019-07-17 01:04] LABS: African American GFR (CKD) >90 (>60 ml/min/1.73 sqM); Anion Gap 12 mmol/L; Blood Urea Nitrogen 16 mg/dL (7-17); Carbon Dioxide 17 mmol/L (22-30); Chloride 105 mmol/L (98-107); Glucose 147 mg/dL (74-99); Non-African American GFR(CKD) >90 (>60 ml/min/1.73 sqM); Sodium 134 mmol/L (137-145)
[2019-07-17 01:25] LABS: Glucose,Whole Blood 109 mg/dL (75-99)
[2019-07-17] MEDS: SODIUM CHLORIDE 0.9% 1,000 ML IV SCH ×2 (02:23→06:01)
[2019-07-17 02:27] LABS: Glucose,Whole Blood 83 mg/dL (75-99)
[2019-07-17 03:34] LABS: Glucose,Whole Blood 118 mg/dL (75-99)
[2019-07-17 04:21] LABS: African American GFR (CKD) >90 (>60 ml/min/1.73 sqM); Anion Gap 11 mmol/L; Blood Urea Nitrogen 15 mg/dL (7-17); Carbon Dioxide 18 mmol/L (22-30); Chloride 104 mmol/L (98-107); Glucose 97 mg/dL (74-99); Non-African American GFR(CKD) >90 (>60 ml/min/1.73 sqM); Potassium 4.4 mmol/L (3.5-5.1); Sodium 133 mmol/L (137-145)
[2019-07-17 04:33] LABS: Glucose,Whole Blood 128 mg/dL (75-99)
[2019-07-17] MEDS ORDERED: ACETAMINOPHEN TAB 325 MG TAB PO PRN (04:41)
[2019-07-17] MEDS: INSULIN REGULAR 100 UNIT in SODIUM CHLORIDE 0.9% 100 ML IV SCH (04:54)
[2019-07-17 05:34] LABS: Glucose,Whole Blood 131 mg/dL (75-99)
[2019-07-17 06:27] LABS: Glucose,Whole Blood 141 mg/dL (75-99)
[2019-07-17] MEDS: D5-0.45% NACL WITH KCL 20MEQ/L 1,000 ML IV SCH (06:48)
[2019-07-17 07:26] LABS: Glucose,Whole Blood 199 mg/dL (75-99)
[2019-07-17 08:29] LABS: Glucose,Whole Blood 215 mg/dL (75-99)
[2019-07-17 09:25] LABS: Glucose,Whole Blood 224 mg/dL (75-99)
[2019-07-17 10:07] LABS: African American GFR (CKD) >90 (>60 ml/min/1.73 sqM); Anion Gap 11 mmol/L; Blood Urea Nitrogen 14 mg/dL (7-17); Carbon Dioxide 16 mmol/L (22-30); Chloride 105 mmol/L (98-107); Glucose 196 mg/dL (74-99); Non-African American GFR(CKD) >90 (>60 ml/min/1.73 sqM); Sodium 132 mmol/L (137-145)
[2019-07-17 10:08] LABS: Potassium 4.7 mmol/L (3.5-5.1)
[2019-07-17 10:27] LABS: Glucose,Whole Blood 260 mg/dL (75-99)
[2019-07-17 11:14] LABS: Glucose,Whole Blood 263 mg/dL (75-99)
[2019-07-17 12:16] LABS: Glucose,Whole Blood 279 mg/dL (75-99)
[2019-07-17] MEDS ORDERED: INSULN ASP PRT/INSULIN ASPART 100 UNIT/ML 10 ML VIAL SQ SCH ×2 (12:30→17:30)
[2019-07-17] MEDS: ENOXAPARIN 40 MG/0.4 ML SYRINGE SQ SCH (12:48)
[2019-07-17] MEDS: INSULIN ASPART (NovoLOG) 100 UNIT/ML VIAL SQ SCH ×3 (12:49→20:20)
[2019-07-17 12:55] LABS: African American GFR (CKD) >90 (>60 ml/min/1.73 sqM); Anion Gap 14 mmol/L; Blood Urea Nitrogen 11 mg/dL (7-17); Calcium 8.9 mg/dL (8.4-10.2); Carbon Dioxide 16 mmol/L (22-30); Chloride 100 mmol/L (98-107); Glucose 286 mg/dL (74-99); Non-African American GFR(CKD) >90 (>60 ml/min/1.73 sqM); Phosphorus 2.3 mg/dL (2.5-4.5); Potassium 4.5 mmol/L (3.5-5.1); Sodium 130 mmol/L (137-145)
[2019-07-17 14:24] VITALS: BMI 37.2
[2019-07-17 16:33] LABS: Glucose,Whole Blood 295 mg/dL (75-99)
--- NOTE | 2019-07-17 16:48 | P.HPIM ---
History of Present Illness H&P Date: 07/17/19 Chief Complaint: Nausea vomiting Hospital course: This is a 28-year-old white female who follows with Dr. Dupont. September 2018- diagnosed with diabetic ketoacidosis and was sent home on insulin 70/30. For 3- 4 days her sugars have been running high. Sometimes she will skip breakfast. Abdomen is no real major meal. She often takes her metformin on an empty stomach. Presented to ER yesterday. Found to be in diabetic ketoacidosis. Put on insulin drip. Denies any fever and chills. No respirations symptoms. No diarrhea. No urinary symptoms. This morning feeling better. Sugars are down to 200s. She was to eat some food. She has 2 children at home she is quite b usy with them. Review of systems: GEN.: Tired EYES: None HEENT: None NECK: None RESPIRATORY: None CARDIOVASCULAR: None GASTROINTESTINAL: None GENITOURINARY: Polyuria MUSCULOSKELETAL: None LYMPHATICS: None HEMATOLOGICAL: None PSYCHIATRY: None NEUROLOGICAL: None Past medical history to include: Diabetes mellitus type 1, obesity, hidradenitis, muscular dystrophy-myofibrillar myopathy type I, questionable nonischemic cardiomyopathy, depression Social history: Smokes a pack a day for a few years. Has 2 children at home. Not employed. Alcohol occasionally. Physical examination: VITAL SIGNS: 98.3, 80, 18, 110/63, 97% room air GENERAL: BMI 37.3, sitting up in a chair, a bit tired but awake, feels better from admission EYES: Pupils equal. Conjunctiva normal. HEENT: External appearance of nose and ears normal, oral cavity grossly normal. NECK: JVD not raised; masses not palpable. HEART: First and second heart sounds are normal; no edema. LUNGS: Respiratory rate normal; clear to auscultation. ABDOMEN: Soft, nontender, liver spleen not palpable, no masses palpable. PSYCH: Alert and oriented x3; mood and affect normal. NEUROLOGICAL: Cranial nerves grossly intact; no facial asymmetry, power and sensation grossly intact. LYMPHATICS: No lymph nodes palpable in the axilla and neck INVESTIGATIONS, reviewed in the clinical context: White count 14.2 hemoglobin 15.4 potassium 5.4 bicarb 8 blood glucose 543 serum acetone positive Assessment: -diabetic ketoacidosis, POA -Obesity BMI 37.3 -Leukocytosis from DKA. no evidence of infection -Chronic nicotine dependence cigarette smoker -Hypokalemia from diabetic ketoacidosis Plan: Patient is put on an insulin drip. Electrolytes were followed. Feeling better this morning. Had a long talk to patient about spending a lot of meals. Did also talk about insulin. We'll switch the patient at lunchtime to use Novolin 70/30 20 units and 30 units with breakfast and supper. Relevant clinical educator see the patient. Lovenox for DVT prophylaxis. Watch her for another 24 hours. Encouraged to ambulate. Repeat lites in the morning. DC IV fluids later today. Smoke cessation counseling: This was done with the patient. Nicotine patch is being given. More than 3 minutes was spent for this Past Medical History Past Medical History: Diabetes Mellitus, Hearing Disorder / Deafness, Musculoskeletal Disorder Additional Past Medical History / Comment(s): [place], 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, non ischemic cardiomyopathy History of Any Multi-Drug Resistant Organisms: None Reported Past Surgical History: Ear Surgery, Tonsillectomy Past Anesthesia/Blood Transfusion Reactions: No Reported Reaction Past Psychological History: No Psychological Hx Reported, Depression Smoking Status: Current every day smoker Past Alcohol Use History: Occasional Past Drug Use History: None Reported - Past Family History Father Family Medical History: Diabetes Mellitus Mother Family Medical History: Coronary Artery Disease (CAD) Medications and Allergies Home Medications Medication Instructions Recorded Confirmed Type Atorvastatin [Lipitor] 20 mg PO DAILY 02/22/19 07/16/19 History Cinnamon Bark [Cinnamon] 500 mg PO BID 02/22/19 07/16/19 History Lisinopril 20 mg PO DAILY 02/22/19 07/16/19 History metFORMIN HCL [Glucophage] 500 mg PO BID 02/22/19 07/16/19 History Insulin NPH Hum/Reg Insulin Hm See Protocol SQ TID-W/MEALS 03/18/19 07/16/19 History [NovoLIN 70-30 100 UNIT/ML VIAL] medroxyPROGESTERone [Depo-Provera] 150 mg IM Q84D 07/16/19 07/16/19 History Allergies Allergy/AdvReac Type Severity Reaction Status Date / Time No Known Allergies Allergy Verified 07/16/19 20:58 Physical Exam Vitals: Vital Signs Temp Pulse Pulse Resp BP BP Pulse Ox 07/17/19 07:42 97.9 F 82 16 102/66 98 06/03/20 03:38 98.1 F 90 17 106/55 95 07/17/19 00:00 98 F 70 17 121/51 96 07/16/19 21:50 98.4 F 83 18 115/55 97 07/16/19 21:35 99 F 84 18 116/89 98 07/16/19 20:50 80 18 110/63 97 07/16/19 19:11 98.3 F 105 H 18 108/73 96 Intake and Output 07/16/19 07/17/19 07/17/19 22:59 06:59 14:59 Intake Total 7.513 96.989 1.848 Output Total 0 Balance 7.513 96.989 1.848 Intake: Intake, IV Titration 7.513 96.989 1.848 Amount Insulin Regular 100 unit 7.513 96.989 1.848 In Sodium Chloride 0.9% 100 ml @ 0.1 UNITS/KG/HR 10.995 mls/hr IV .[id number] Rx#:[id number] Output: Urine 0 Other: Voiding Method Toilet # Voids 2 Weight 108.862 kg 107.9 kg Results CBC & Chem 7: 07/16/19 19:50 07/17/19 12:23 Labs: Abnormal Lab Results - Last 24 Hours (Table) 07/16/19 07/16/19 07/16/19 Range/Units 19:10 19:50 19:50 WBC 14.2 H (3.8-10.6) k/uL RBC 5.41 H (3.80-5.40) m/uL Hct 48.0 H (34.0-46.0) % Neutrophils # 11.6 H (1.3-7.7) k/uL Sodium (137-145) mmol/L Potassium (3.5-5.1) mmol/L Chloride (98-107) mmol/L Carbon Dioxide (22-30) mmol/L BUN (7-17) mg/dL Creatinine (0.52-1.04) mg/dL Glucose (74-99) mg/dL POC Glucose (mg/dL) 563 H (75-99) mg/dL Total Bilirubin (0.2-1.3) mg/dL Urine Protein Trace H (Negative) Urine Glucose (UA) 4+ H (Negative) Urine Ketones 4+ H (Negative) Ur Leukocyte Esterase Trace H (Negative) Hyaline Casts 4 H (0-2) /lpf Urine Mucus Rare H (None) /hpf 07/16/19 07/16/19 07/16/19 Range/Units 19:50 21:08 21:48 WBC (3.8-10.6) k/uL RBC (3.80-5.40) m/uL Hct (34.0-46.0) % Neutrophils # (1.3-7.7) k/uL Sodium 132 L (137-145) mmol/L Potassium 5.4 H (3.5-5.1) mmol/L Chloride 96 L (98-107) mmol/L Carbon Dioxide 8 L* (22-30) mmol/L BUN 20 H (7-17) mg/dL Creatinine (0.52-1.04) mg/dL Glucose 543 H* (74-99) mg/dL POC Glucose (mg/dL) 426 H 294 H (75-99) mg/dL Total Bilirubin 1.5 H (0.2-1.3) mg/dL Urine Protein (Negative) Urine Glucose (UA) (Negative) Urine Ketones (Negative) Ur Leukocyte Esterase (Negative) Hyaline Casts (0-2) /lpf Urine Mucus (None) /hpf 07/16/19 07/16/19 07/17/19 Range/Units 22:19 23:16 00:09 WBC (3.8-10.6) k/uL RBC (3.80-5.40) m/uL Hct (34.0-46.0) % Neutrophils # (1.3-7.7) k/uL Sodium 134 L (137-145) mmol/L Potassium (3.5-5.1) mmol/L Chloride (98-107) mmol/L Carbon Dioxide 17 L (22-30) mmol/L BUN (7-17) mg/dL Creatinine 0.36 L (0.52-1.04) mg/dL Glucose 147 H (74-99) mg/dL POC Glucose (mg/dL) 219 H 209 H (75-99) mg/dL Total Bilirubin (0.2-1.3) mg/dL Urine Protein (Negative) Urine Glucose (UA) (Negative) Urine Ketones (Negative) Ur Leukocyte Esterase (Negative) Hyaline Casts (0-2) /lpf Urine Mucus (None) /hpf 07/17/19 07/17/19 07/17/19 Range/Units 00:20 01:13 03:32 WBC (3.8-10.6) k/uL RBC (3.80-5.40) m/uL Hct (34.0-46.0) % Neutrophils # (1.3-7.7) k/uL Sodium 133 L (137-145) mmol/L Potassium (3.5-5.1) mmol/L Chloride (98-107) mmol/L Carbon Dioxide 18 L (22-30) mmol/L BUN (7-17) mg/dL Creatinine 0.34 L (0.52-1.04) mg/dL Glucose (74-99) mg/dL POC Glucose (mg/dL) 153 H 109 H (75-99) mg/dL Total Bilirubin (0.2-1.3) mg/dL Urine Protein (Negative) Urine Glucose (UA) (Negative) Urine Ketones (Negative) Ur Leukocyte Esterase (Negative) Hyaline Casts (0-2) /lpf Urine Mucus (None) /hpf 07/17/19 07/17/19 07/17/19 Range/Units 03:33 04:30 05:32 WBC (3.8-10.6) k/uL RBC (3.80-5.40) m/uL Hct (34.0-46.0) % Neutrophils # (1.3-7.7) k/uL Sodium (137-145) mmol/L Potassium (3.5-5.1) mmol/L Chloride (98-107) mmol/L Carbon Dioxide (22-30) mmol/L BUN (7-17) mg/dL Creatinine (0.52-1.04) mg/dL Glucose (74-99) mg/dL POC Glucose (mg/dL) 118 H 128 H 131 H (75-99) mg/dL Total Bilirubin (0.2-1.3) mg/dL Urine Protein (Negative) Urine Glucose (UA) (Negative) Urine Ketones (Negative) Ur Leukocyte Esterase (Negative) Hyaline Casts (0-2) /lpf Urine Mucus (None) /hpf 07/17/19 07/17/19 07/17/19 Range/Units 06:25 07:26 08:28 WBC (3.8-10.6) k/uL RBC (3.80-5.40) m/uL Hct (34.0-46.0) % Neutrophils # (1.3-7.7) k/uL Sodium (137-145) mmol/L Potassium (3.5-5.1) mmol/L Chloride (98-107) mmol/L Carbon Dioxide (22-30) mmol/L BUN (7-17) mg/dL Creatinine (0.52-1.04) mg/dL Glucose (74-99) mg/dL POC Glucose (mg/dL) 141 H 199 H 215 H (75-99) mg/dL Total Bilirubin (0.2-1.3) mg/dL Urine Protein (Negative) Urine Glucose (UA) (Negative) Urine Ketones (Negative) Ur Leukocyte Esterase (Negative) Hyaline Casts (0-2) /lpf Urine Mucus (None) /hpf 07/17/19 07/17/19 Range/Units 08:34 09:24 WBC (3.8-10.6) k/uL RBC (3.80-5.40) m/uL Hct (34.0-46.0) % Neutrophils # (1.3-7.7) k/uL Sodium 132 L (137-145) mmol/L Potassium (3.5-5.1) mmol/L Chloride (98-107) mmol/L Carbon Dioxide 16 L (22-30) mmol/L BUN (7-17) mg/dL Creatinine 0.31 L (0.52-1.04) mg/dL Glucose 196 H (74-99) mg/dL POC Glucose (mg/dL) 224 H (75-99) mg/dL Total Bilirubin (0.2-1.3) mg/dL Urine Protein (Negative) Urine Glucose (UA) (Negative) Urine Ketones (Negative) Ur Leukocyte Esterase (Negative) Hyaline Casts (0-2) /lpf Urine Mucus (None) /hpf Thrombosis Risk Factor Assmnt - Choose All That Apply Any of the Below Risk Factors Present?: No
[2019-07-17] MEDS: metFORMIN 500 MG TAB PO SCH (17:13)
[2019-07-17 20:04] LABS: Glucose,Whole Blood 244 mg/dL (75-99)
[2019-07-17] MEDS: DOCUSATE 100 MG CAP PO PRN (23:55)
[2019-07-18 06:15] LABS: Glucose,Whole Blood 243 mg/dL (75-99)
[2019-07-18] MEDS: metFORMIN 500 MG TAB PO SCH (06:51)
[2019-07-18 07:07] LABS: Glucose,Whole Blood 252 mg/dL (75-99)
[2019-07-18] MEDS: INSULIN ASPART (NovoLOG) 100 UNIT/ML VIAL SQ SCH ×2 (07:14→12:15)
[2019-07-18] MEDS ORDERED: INSULN ASP PRT/INSULIN ASPART 100 UNIT/ML 10 ML VIAL SQ SCH ×2 (07:30→12:30)
[2019-07-18] MEDS: ENOXAPARIN 40 MG/0.4 ML SYRINGE SQ SCH (08:56)
[2019-07-18] MEDS: DOCUSATE 100 MG CAP PO PRN (08:56)
[2019-07-18] MEDS ORDERED: ATORVASTATIN 20 MG TAB PO SCH (09:00)
[2019-07-18 09:19] VITALS: TEMP 98
[2019-07-18 11:54] VITALS: BP 125/84; PULSE 84; RESP 16
[2019-07-18 12:05] LABS: Glucose,Whole Blood 169 mg/dL (75-99)
--- NOTE | 2019-07-18 22:16 | P.DS ---
Providers Date of admission: 07/16/19 20:41 Expected date of discharge: 07/18/19 Attending physician: Yunior Morales Primary care physician: Jeromy Dupont Hospital Course: Chief Complaint: Nausea vomiting Hospital course: This is a 28-year-old white female who follows with Dr. Dupont. September 2018- diagnosed with diabetic ketoacidosis and was sent home on insulin 70/30. For 3- 4 days her sugars have been running high. Sometimes she will skip breakfast. Abdomen is no real major meal. She often takes her metformin on an empty stomach. Presented to ER yesterday. Found to be in diabetic ketoacidosis. Put on insulin drip. Denies any fever and chills. No respirations symptoms. No diarrhea. No urinary symptoms. This morning feeling better. Sugars are down to 200s. She was to eat some food. She has 2 children at home she is quite busy with them. Today-patient's insulin doses further adjusted. At the very pleasant talk about patient about the diet the timing how to follow the same. Lifestyle changes. Patient has already lost about 80 pounds she states. She'll maintain a log and follow the family doctor. Discussion discharge planning more than 35 minutes. Physical examination: VITAL SIGNS: 98, 82, 18, 98/65, 88% room air GENERAL: Sitting up in a chair, comfortable EYES: Pupils equal. Conjunctiva normal. HEENT: External appearance of nose and ears normal, oral cavity grossly normal. NECK: JVD not raised; masses not palpable. HEART: First and second heart sounds are normal; no edema. LUNGS: Respiratory rate normal; clear to auscultation. ABDOMEN: Soft, nontender, liver spleen not palpable, no masses palpable. PSYCH: Alert and oriented x3; mood and affect normal. INVESTIGATIONS, reviewed in the clinical context: Accu-Cheks 252, 169 Previous testing White count 14.2 hemoglobin 15.4 potassium 5.4 bicarb 8 blood glucose 543 serum acetone positive Assessment: -diabetic ketoacidosis, POA -Obesity BMI 37.3 -Leukocytosis from DKA. no evidence of infection -Chronic nicotine dependence cigarette smoker -Hyperkalemia from diabetic ketoacidosis Disposition: Home Patient Condition at Discharge: Stable Plan - Discharge Summary Discharge Rx Participant: No New Discharge Prescriptions: New Insulin NPH Hum/Reg Insulin Hm [NovoLIN 70-30 100 UNIT/ML VIAL] 20 unit SQ AC-LUNCH #1 vial Continue metFORMIN HCL [Glucophage] 500 mg PO BID Cinnamon Bark [Cinnamon] 500 mg PO BID Atorvastatin [Lipitor] 20 mg PO DAILY medroxyPROGESTERone [Depo-Provera] 150 mg IM Q84D Changed Insulin NPH Hum/Reg Insulin Hm [NovoLIN 70-30 100 UNIT/ML VIAL] 36 unit SQ AC-BID #0 No Action Lisinopril 20 mg PO DAILY Discharge Medication List Atorvastatin [Lipitor] 20 mg PO DAILY 02/22/19 [History] Cinnamon Bark [Cinnamon] 500 mg PO BID 02/22/19 [History] Lisinopril 20 mg PO DAILY 02/22/19 [History] metFORMIN HCL [Glucophage] 500 mg PO BID 02/22/19 [History] medroxyPROGESTERone [Depo-Provera] 150 mg IM Q84D 07/16/19 [History] Insulin NPH Hum/Reg Insulin Hm [NovoLIN 70-30 100 UNIT/ML VIAL] 20 unit SQ AC- LUNCH #1 vial 07/18/19 [Rx] Insulin NPH Hum/Reg Insulin Hm [NovoLIN 70-30 100 UNIT/ML VIAL] 36 unit SQ AC- BID #0 07/18/19 [Rx] Follow up Appointment(s)/Referral(s): Jeromy Dupont MD [Primary Care Provider] - 3 Days Patient Instructions/Handouts: Cigarette Smoking and Your Health (GEN), Diabetic Ketoacidosis (DC), Managing Diabetes During Sick Days (DC) Activity/Diet/Wound Care/Special Instructions: ac q ac-hhs keep log Discharge Disposition: HOME SELF-CARE
== END 2019-07-18 14:03 | disposition home or self-care (01) | DRG 638 ==
LOC: EC 19:03 → 3SCARD 20:41
PROVIDERS: ADMIT Hospitalist; ATTEND Hospitalist
DX: E11.10 Type 2 diabetes mellitus with ketoacidosis without coma (principal); I42.8 Other cardiomyopathies; E66.9 Obesity, unspecified; E87.5 Hyperkalemia; E87.6 Hypokalemia; G71.00 Muscular dystrophy, unspecified; F17.210 Nicotine dependence, cigarettes, uncomplicated; H91.90 Unspecified hearing loss, unspecified ear; Z68.37 Body mass index [BMI] 37.0-37.9, adult; Z11.59 Encounter for screening for other viral diseases; Z79.4 Long term (current) use of insulin; Z79.899 Other long term (current) drug therapy; Z82.49 Family history of ischemic heart disease and other diseases of the circulatory system; Z83.3 Family history of diabetes mellitus; Z90.89 Acquired absence of other organs; Z98.890 Other specified postprocedural states
CPT/HCPCS: 36415; 80048; 80051; 80053; 81001; 81025; 82009; 82565; 82947; 83605; 83735; 84100; 84520; 85025; 96361; 96374; 99291

== ENCOUNTER 2022-02-19 10:20 | Emergency (ER) | payer OTHER ==
[2022-02-19 10:32] VITALS: RESP 18; TEMP 97.6
--- NOTE | 2022-02-19 12:02 | XR ---
EXAMINATION TYPE: XR ankle complete RT, XR foot complete RT DATE OF EXAM: 02/19/2022 CLINICAL HISTORY: Pain After injury. TECHNIQUE: Frontal, lateral and oblique images of the right ankle and foot are obtained. COMPARISON: Right ankle xray 2015. Right foot x-ray 2016 FINDINGS: There is no acute fracture/dislocation evident in the right ankle. The ankle mortise appe ars within normal limits. The overlying soft tissue appears unremarkable. There is no acute fracture or dislocation evident in the right foot. The joint spaces in the right f oot are preserved. Overlying soft tissue is unremarkable. IMPRESSION: There is no acute fracture or dislocation in the right ankle or foot. No significant prudence nge from prior studies.
[2022-02-19] MEDS ORDERED: ACET/COD 300 MG/30 MG STARTER PACK 6 TAB BTL PO STA (12:48)
--- NOTE | 2022-02-19 12:54 | ED ---
General Adult HPI - General Chief complaint: Extremity Injury, Lower Stated complaint: R. Ankle Injury Time Seen by Provider: 02/19/22 10:51 Source: patient, RN notes reviewed Mode of arrival: ambulatory - History of Present Illness Initial comments: 31-year-old female presents to the emergency room for right foot pain. Patient states she was at her friend's house and the steps worse deeper than she thought. She accidentally overstepped and fell down 3 stairs. She felt a pop in her right foot. She did not hit her head or sustain any other injuries she is not able to walk on the right foot. She is concerned it may be broken. She states she kept it elevated all night but it is still swollen.Patient has no other complaints at this time including shortness of breath, chest pain, abdominal pain, nausea or vomiting, headache, or visual changes. - Related Data Home Medications Medication Instructions Recorded Confirmed Atorvastatin [Lipitor] 20 mg PO DAILY 02/22/19 07/16/19 Cinnamon Bark [Cinnamon] 500 mg PO BID 02/22/19 07/16/19 lisinopriL 20 mg PO DAILY 02/22/19 07/16/19 metFORMIN HCL [Glucophage] 500 mg PO BID 02/22/19 07/16/19 medroxyPROGESTERone [Depo-Provera] 150 mg IM Q84D 07/16/19 07/16/19 Previous Rx's Medication Instructions Recorded Insulin NPH Hum/Reg Insulin Hm 20 unit SQ AC-LUNCH #1 vial 07/18/19 [NovoLIN 70-30 100 UNIT/ML VIAL] Insulin NPH Hum/Reg Insulin Hm 36 unit SQ AC-BID #0 07/18/19 [NovoLIN 70-30 100 UNIT/ML VIAL] Allergies Allergy/AdvReac Type Severity Reaction Status Date / Time No Known Allergies Allergy Verified 02/19/22 10:32 Review of Systems ROS Statement: Those systems with pertinent positive or pertinent negative responses have been documented in the HPI. ROS Other: All systems not noted in ROS Statement are negative. Past Medical History Past Medical History: Diabetes Mellitus, Hearing Disorder / Deafness, Hypertension, Musculoskeletal Disorder Additional Past Medical History / Comment(s): [place], 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, non ischemic cardiomyopathy History of Any Multi-Drug Resistant Organisms: None Reported Past Surgical History: Ear Surgery, Tonsillectomy Past Anesthesia/Blood Transfusion Reactions: No Reported Reaction Past Psychological History: Anxiety, Depression, PTSD Smoking Status: Current every day smoker Past Alcohol Use History: Occasional Past Drug Use History: Marijuana - Past Family History Father Family Medical History: Diabetes Mellitus Mother Family Medical History: Coronary Artery Disease (CAD) General Exam General appearance: alert, in no apparent distress Head exam: Present: atraumatic Eye exam: Present: normal appearance, PERRL, EOMI. Absent: scleral icterus, conjunctival injection ENT exam: Present: normal exam, mucous membranes moist Neck exam: Present: normal inspection, full ROM. Absent: tenderness Respiratory exam: Present: normal lung sounds bilaterally. Absent: respiratory distress, wheezes Extremities exam: Present: tenderness (tenderness noted to dorsum and lateral aspect of right foot.), normal capillary refill (capillary refill less than 2 seconds, DP and PD pulses 2+.), other (mild edema noted of the dorsum of the right foot.). Absent: full ROM (patient is not able to fully dorsiflex right foot, foot held in plantar flexion) Course Vital Signs 02/19/22 10:26 Temperature 97.6 F Pulse Rate 71 Respiratory 18 Rate Blood Pressure 134/61 O2 Sat by Pulse 96 Oximetry Procedures - Orthopedic Splinting/Casting Injury #1 Side: right Lower Extremity Injury Location: short leg Lower Extremity Immobilizer: posterior splint (attempted as much dorsi flexion as patient couldn't tolerate however this was limited secondary to pain) Other Orthopedic Equipment: crutches Additional Comments: NV status intact after splint applied Medical Decision Making - Medical Decision Making vitals are stable. HPI and physical exam as documented. X-ray personally interpreted no evidence of fracture. Radiology report reviewed. Patient was splinted given concern for occult fracture and given crutches. She was given orthopedic follow-up. Was pt. sent in by a medical professional or institution (, PA, ION IMPLANT MACHINE OPERATOR, urgent care, hospital, or [facility]...) When possible be specific @ -No Did you speak to anyone other than the patient for history (EMS, parent, family, police, friend...)? What history was obtained from this source @ -No Did you review nursing and triage notes (agree or disagree)? Why? @ -I reviewed and agree with nursing and triage notes Were old charts reviewed (outside hosp., previous admission, EMS record, old EKG, old radiological studies, urgent care reports/EKG's, [facility] records)? Report findings @ -No old charts were reviewed Differential Diagnosis (chest pain, altered mental status, abdominal pain women, abdominal pain men, vaginal bleeding, weakness, fever, dyspnea, syncope, headache, dizziness, GI bleed, back pain, seizure, CVA, palpatations, mental health)? @ - fracture vs soft tissue injury vs strain - this list is not exhuastive EKG interpreted by me (3pts min.). @ -none done X-rays interpreted by me (1pt min.). @ -xr foot and ankle show no acute fracture CT interpreted by me (1pt min.). @ -None done U/S interpreted by me (1pt. min.). @ -None done What testing was considered but not performed or refused? (CT, X-rays, U/S, labs)? Why? @ -None What meds were considered but not given or refused? Why? @ -None Did you discuss the management of the patient with other professionals (professionals i.e. , PA, ION IMPLANT MACHINE OPERATOR, lab, RT, psych nurse, social service director, tool and die assembler, teacher, national service officer, case coordinator)? Give summary @ -dr dumont Was smoking cessation discussed for >3mins.? @ -No Was critical care preformed (if so, how long)? @ -No Were there social determinants of health that impacted care today? How? (Homelessness, low income, unemployed, alcoholism, drug addiction, transportation, low edu. Level, literacy, decrease access to med. care, detention, rehab)? @ -yes, patient taking public transportation and not able to bear weight on right foot Was there de-escalation of care discussed even if they declined (Discuss DNR or withdrawal of care, Hospice)? DNR status @ -No What co-morbidities impacted this encounter? (DM, HTN, Smoking, COPD, CAD, Cancer, CVA, ARF, Chemo, Hep., AIDS, mental health diagnosis, sleep apnea, morbid obesity)? @ -None Was patient admitted / discharged? Hospital course, mention meds given and route, prescriptions, significant lab abnormalities, going to OR and other pertinent info. @ - Undiagnosed new problem with uncertain prognosis? @ -patient seen in er, xr taken, patient splinted, discharged home with ortho follow up Drug Therapy requiring intensive monitoring for toxicity (Heparin, Nitro, Insulin, Cardizem)? @ none Were any procedures done? @ - yes, dorsal splint right leg Diagnosis/symptom? @ - right foot contusion Acute, or Chronic, or Acute on Chronic? @ -acute Uncomplicated (without systemic symptoms) or Complicated (systemic symptoms)? @ -uncomplicated Side effects of treatment? @ -none Exacerbation, Progression, or Severe Exacerbation? @ -no Poses a threat to life or bodily function? How? (Chest pain, [place], [place], pneumonia, PE, COPD, DKA, ARF, appy, cholecystitis, CVA, Diverticulitis, Homicidal, Suicidal, threat to staff... and all critical care pts) @ -No Disposition Clinical Impression: Contusion of foot Disposition: HOME SELF-CARE Condition: Good Instructions (If sedation given, give patient instructions): Foot Contusion (ED) Additional Instructions: Take Motrin and Tylenol for pain. If pain is severe take Tylenol 3. Make sure not to drive or operate machinery while taking Tylenol 3. Rest ice and elevate the right foot. Use crutches and remain nonweightbearing until you see orthopedics. Call orthopedics Monday to schedule an appointment. Is patient prescribed a controlled substance at d/c from ED?: No Referrals: Tonny Ayala MD [STAFF PHYSICIAN] - 1-2 days Time of Disposition: 12:52
[2022-02-19 14:15] VITALS: BP 142/87; PULSE 79
== END 2022-02-19 14:15 | disposition home or self-care (01) ==
LOC: EC 10:20
DX: S90.31XA Contusion of right foot, initial encounter (principal); E11.9 Type 2 diabetes mellitus without complications; I10 Essential (primary) hypertension; F41.9 Anxiety disorder, unspecified; F32.A Depression, unspecified; F17.200 Nicotine dependence, unspecified, uncomplicated; F12.90 Cannabis use, unspecified, uncomplicated; Z79.84 Long term (current) use of oral hypoglycemic drugs; Z79.899 Other long term (current) drug therapy; W10.9XXA Fall (on) (from) unspecified stairs and steps, initial encounter; Y92.019 Unspecified place in single-family (private) house as the place of occurrence of the external cause
CPT/HCPCS: 29515; 99284

== ENCOUNTER 2023-02-15 19:48 | Inpatient (IN) | payer OTHER ==
[2023-02-15 20:05] LABS: Glucose,Whole Blood 498 mg/dL (70-110)
--- NOTE | 2023-02-15 20:20 | ED ---
Recheck HPI - General Source: patient, RN notes reviewed Mode of arrival: wheelchair Limitations: no limitations <Neela Trujillo - Last Filed: 02/15/23 20:18> <Kate Worley - Last Filed: 02/16/23 00:04> - General Chief Complaint: Recheck/Abnormal Lab/Rx Stated Complaint: High blood sugar Time Seen by Provider: 02/15/23 20:18 - History of Present Illness Initial Comments: Patient is a 32-year-old female presented ER with chief complaint of nausea and vomiting. Patient is a type I diabetic. Patient states her sugars have been over 500. Patient states she has not been able to keep anything down the past couple of days. Patient denies any fevers, chills, night sweats. (Neela Trujillo) 32-year-old type I diabetic who presents emergency department with suspected DKA. States that she has not checked her blood glucose in 1.5 weeks as she cannot afford her test strips. She does take insulin 70/30 however she has had to guess at the amount as she has been unable to check her sugars. She states for the past 2 days she has had nausea with vomiting. Has history of DKA. Does have concern for . No fevers chills. Denies abdominal pain. No other alleviating, precipitating or modifying factors (Kate Worley) - Related Data Home Medications Medication Instructions Recorded Confirmed Atorvastatin [Lipitor] 10 mg PO HS 04/06/22 04/06/22 Escitalopram Oxalate [Lexapro] 20 mg PO DAILY 04/06/22 04/06/22 Insulin NPH/Reg Insulin 70/30 50 unit SQ TID-W/MEALS 04/06/22 04/06/22 [humuLIN 70/30 VIAL] hydrOXYzine pamoate [Vistaril] 25 mg PO TID 04/06/22 04/06/22 Previous Rx's Medication Instructions Recorded Syringe-Needle,Insulin,0.5 ml 1 syr SQ DIRECTED #90 each 04/08/22 [Insulin Syringe 28G 1/2" 0.5ML] lisinopriL 2.5 mg PO DAILY #30 tablet 04/08/22 Allergies Allergy/AdvReac Type Severity Reaction Status Date / Time No Known Allergies Allergy Verified 02/15/23 20:00 Review of Systems ROS Other: All systems not noted in ROS Statement are negative. <KevinabhijeetNeela - Last Filed: 02/15/23 20:18> ROS Other: All systems not noted in ROS Statement are negative. <Kate Worley Korina - Last Filed: 02/16/23 00:04> ROS Statement: Those systems with pertinent positive or pertinent negative responses have been documented in the HPI. 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, non ischemic cardiomyopathy; DKA History of Any Multi-Drug Resistant Organisms: None Reported Past Surgical History: Ear Surgery, Tonsillectomy Past Anesthesia/Blood Transfusion Reactions: No Reported Reaction Past Psychological History: Anxiety, Depression, PTSD Smoking Status: Current every day smoker Past Alcohol Use History: Occasional Past Drug Use History: Marijuana - Past Family History Father Family Medical History: Diabetes Mellitus Mother Family Medical History: Coronary Artery Disease (CAD) <Neela Trujillo - Last Filed: 02/15/23 20:18> General Exam Limitations: no limitations <KevinabhijeetNeela - Last Filed: 02/15/23 20:18> General appearance: alert, in no apparent distress Head exam: Present: atraumatic, normocephalic, normal inspection Eye exam: Present: normal appearance, PERRL, EOMI. Absent: scleral icterus, conjunctival injection, periorbital swelling ENT exam: Present: normal exam, mucous membranes moist Neck exam: Present: normal inspection. Absent: tenderness, meningismus, lympha denopathy Respiratory exam: Present: normal lung sounds bilaterally. Absent: respiratory distress, wheezes, rales, rhonchi, stridor Cardiovascular Exam: Present: regular rate, normal rhythm, normal heart sounds. Absent: systolic murmur, diastolic murmur, rubs, gallop, clicks GI/Abdominal exam: Present: soft, normal bowel sounds. Absent: distended, tenderness, guarding, rebound, rigid Extremities exam: Present: normal inspection, full ROM, normal capillary refill. Absent: tenderness, pedal edema, joint swelling, calf tenderness Back exam: Present: normal inspection Neurological exam: Present: alert, oriented X3, CN II-XII intact Psychiatric exam: Present: normal affect, normal mood Skin exam: Present: warm, dry, intact, normal color. Absent: rash <Kate Worley - Last Filed: 02/16/23 00:04> - General Exam Comments Initial Comments: Visual Physical Exam Vital signs reviewed General: Ill-appearing Head: Normocephalic, atraumatic Eyes: PERRLA, EOMI ENT: Airway patent Chest: Nonlabored breathing Skin: No visual rash, normal skin tone Neuro: Alert and oriented 3 Musculoskeletal: No gross abnormalities (Neela Trujillo) Course Vital Signs 02/15/23 20:00 Temperature 98.3 F Pulse Rate 88 Respiratory 18 Rate Blood Pressure 127/68 O2 Sat by Pulse 98 Oximetry Medical Decision Making <Neela Trujillo - Last Filed: 02/15/23 20:18> - Lab Data Result diagrams: 02/15/23 20:52 02/15/23 20:52 <Kate Worley - Last Filed: 02/16/23 00:04> - Medical Decision Making I performed the quick note portion of the exam. Electronically signed by Neela Trujillo PA-C (Neela Trujillo) Was pt. sent in by a medical professional or institution (RINKU Sánchez, [employer], urgent care, hospital, or usp...) When possible be specific @ -No Did you speak to anyone other than the patient for history (EMS, parent, family, police, friend...)? What history was obtained from this source @ -No Did you review nursing and triage notes (agree or disagree)? Why? @ -I reviewed and agree with nursing and triage notes Were old charts reviewed (outside hosp., previous admission, EMS record, old EKG, old radiological studies, urgent care reports/EKG's, usp records)? Report findings @ -No old charts were reviewed Differential Diagnosis (chest pain, altered mental status, abdominal pain women, abdominal pain men, vaginal bleeding, weakness, fever, dyspnea, syncope, headache, dizziness, GI bleed, back pain, seizure, CVA, palpatations, mental health, musculoskeletal)? @ -Differential Hypoglycemia, DKA, hypercapnia, ETOH, overdose, CO poisoning, trauma, myxedema coma, HTN encephalopathy, infection, encephalitis, psychosis, intercranial hemorrhage, hepatic encephalopathy, meningitis, CVA, this is not meant to be an all-inclusive list EKG interpreted by me (3pts min.). @ -yes demonstrates sinus rhythm with rate of 76. ID interval 166. QRS 158. QTC of 447. Left bundle branch block which was seen on previous EKGs. Negative for sgarbossa criteria X-rays interpreted by me (1pt min.). @ -yes and demonstrates no acute process CT interpreted by me (1pt min.). @ -None done U/S interpreted by me (1pt. min.). @ -None done What testing was considered but not performed or refused? (CT, X-rays, U/S, labs)? Why? @ -None What meds were considered but not given or refused? Why? @ -None Did you discuss the management of the patient with other professionals (professionals i.e. , PA, [employer], lab, RT, psych nurse, clinical social work aide, grab setter, teacher, school resource officer, home health care case manager)? Give summary @ -spoke with dr kinney, admitting physician Was smoking cessation discussed for >3mins.? @ -No Was critical care preformed (if so, how long)? @ -yes, 45 minutes for dka management Were there social determinants of health that impacted care today? How? (Homelessness, low income, unemployed, alcoholism, drug addiction, tra nsportation, low edu. Level, literacy, decrease access to med. care, alf, rehab)? @ -patient can not afford test strips Was there de-escalation of care discussed even if they declined (Discuss DNR or withdrawal of care, Hospice)? DNR status @ -No What co-morbidities impacted this encounter? (DM, HTN, Smoking, COPD, CAD, C ancer, CVA, ARF, Chemo, Hep., AIDS, mental health diagnosis, sleep apnea, morbid obesity)? @ -DM Was patient admitted / discharged? Hospital course, mention meds given and route, prescriptions, significant lab abnormalities, going to OR and other pertinent info. @ -Admitted. Upon arrival patient placed into trauma 3. Thorough history and physical exam was performed. IV is established. Laboratory studies are conducted. Patient does meet DKA criteria. She was given 2 L of normal saline followed by an insulin drip. Patient will be admitted. Spoke with Dr. kinney for admission. Undiagnosed new problem with uncertain prognosis? @ -No Drug Therapy requiring intensive monitoring for toxicity (Heparin, Nitro, Insulin, Cardizem)? @ -insulin Were any procedures done? @ -No Diagnosis/symptom? @ -Acute nausea vomiting, acute DKA, acute leukocytosis Acute, or Chronic, or Acute on Chronic? @ -Acute Uncomplicated (without systemic symptoms) or Complicated (systemic symptoms)? @ -Complicated Side effects of treatment? @ -No Exacerbation, Progression, or Severe Exacerbation? @ -No Poses a threat to life or bodily function? How? (Chest pain, [place], [place], pneumonia, PE, COPD, DKA, ARF, appy, cholecystitis, CVA, Diverticulitis, Homicidal, Suicidal, threat to staff... and all critical care pts) @ -Yes due to acidosis (Kate Worley) - Lab Data Lab Results 02/15/23 02/15/23 02/15/23 Range/Units 20:03 20:52 20:52 WBC 18.4 H (3.8-10.6) k/uL RBC 5.43 H (3.80-5.40) m/uL Hgb 16.5 H (11.4-16.0) gm/dL Hct 49.2 H (34.0-46.0) % MCV 90.7 (80.0-100.0) fL MCH 30.4 (25.0-35.0) pg MCHC 33.5 (31.0-37.0) g/dL RDW 12.6 (11.5-15.5) % Plt Count 404 (150-450) k/uL MPV 8.9 Neutrophils % 85 % Lymphocytes % 11 % Monocytes % 2 % Eosinophils % 0 % Basophils % 0 % Neutrophils # 15.6 H (1.3-7.7) k/uL Lymphocytes # 2.0 (1.0-4.8) k/uL Monocytes # 0.4 (0-1.0) k/uL Eosinophils # 0.1 (0-0.7) k/uL Basophils # 0.1 (0-0.2) k/uL Sodium 134 L (137-145) mmol/L Potassium 5.2 H (3.5-5.1) mmol/L Chloride 100 (98-107) mmol/L Carbon Dioxide <5 L* (22-30) mmol/L Anion Gap mmol/L BUN 15 (7-17) mg/dL Creatinine 0.52 (0.52-1.04) mg/dL Est GFR (CKD-EPI)AfAm >90 (>60 ml/min/1.73 sqM) Est GFR (CKD-EPI)NonAf >90 (>60 ml/min/1.73 sqM) Glucose 493 H (74-99) mg/dL POC Glucose (mg/dL) 498 H (70-110) mg/dL POC Glu [employer] CECILY Chelsie Solares Plasma Lactic Acid [place] (0.7-2.0) mmol/L Calcium 9.6 (8.4-10.2) mg/dL Total Bilirubin 1.3 (0.2-1.3) mg/dL AST 24 (14-36) U/L ALT 23 (4-34) U/L Alkaline Phosphatase 161 H (38-126) U/L Total Protein 8.0 (6.3-8.2) g/dL Albumin 5.0 (3.5-5.0) g/dL Urine Color Urine Appearance (Clear) Urine pH (5.0-8.0) Ur Specific [place] (1.001-1.035) Urine Protein (Negative) Urine Glucose (UA) (Negative) Urine Ketones (Negative) Urine Blood (Negative) Urine Nitrite (Negative) Urine Bilirubin (Negative) Urine Urobilinogen (<2.0) mg/dL Ur Leukocyte Esterase (Negative) Urine HCG, Qual (Not Detectd) Acetone, Qual Positive (Negative) 02/15/23 02/15/23 02/15/23 Range/Units 20:52 21:15 21:15 WBC (3.8-10.6) k/uL RBC (3.80-5.40) m/uL Hgb (11.4-16.0) gm/dL Hct (34.0-46.0) % MCV (80.0-100.0) fL MCH (25.0-35.0) pg MCHC (31.0-37.0) g/dL RDW (11.5-15.5) % Plt Count (150-450) k/uL MPV Neutrophils % % Lymphocytes % % Monocytes % % Eosinophils % % Basophils % % Neutrophils # (1.3-7.7) k/uL Lymphocytes # (1.0-4.8) k/uL Monocytes # (0-1.0) k/uL Eosinophils # (0-0.7) k/uL Basophils # (0-0.2) k/uL Sodium (137-145) mmol/L Potassium (3.5-5.1) mmol/L Chloride (98-107) mmol/L Carbon Dioxide (22-30) mmol/L Anion Gap mmol/L BUN (7-17) mg/dL Creatinine (0.52-1.04) mg/dL Est GFR (CKD-EPI)AfAm (>60 ml/min/1.73 sqM) Est GFR (CKD-EPI)NonAf (>60 ml/min/1.73 sqM) Glucose (74-99) mg/dL POC Glucose (mg/dL) (70-110) mg/dL POC Glu [employer] Editor ID Plasma Lactic Acid [place] 1.3 (0.7-2.0) mmol/L Calcium (8.4-10.2) mg/dL Total Bilirubin (0.2-1.3) mg/dL AST (14-36) U/L ALT (4-34) U/L Alkaline Phosphatase (38-126) U/L Total Protein (6.3-8.2) g/dL Albumin (3.5-5.0) g/dL Urine Color Colorless Urine Appearance Clear (Clear) Urine pH 5.0 (5.0-8.0) Ur Specific [place] 1.026 (1.001-1.035) Urine Protein Negative (Negative) Urine Glucose (UA) 4+ H (Negative) Urine Ketones 4+ H (Negative) Urine Blood Negative (Negative) Urine Nitrite Negative (Negative) Urine Bilirubin Negative (Negative) Urine Urobilinogen <2.0 (<2.0) mg/dL Ur Leukocyte Esterase Negative (Negative) Urine HCG, Qual Not Detected (Not Detectd) Acetone, Qual (Negative) Disposition <Neela Trujillo - Last Filed: 02/15/23 20:18> Is patient prescribed a controlled substance at d/c from ED?: No Time of Disposition: 22:50 Decision to Admit Reason: Admit from EC Decision Date: 02/15/23 Decision Time: 22:50 <Kate Worley - Last Filed: 02/16/23 00:04> Clinical Impression: Diabetic ketoacidosis Disposition: ADMITTED IP TO THIS HOSP Condition: Serious
[2023-02-15 21:20] LABS: ALT 23 U/L (4-34); African American GFR (CKD) >90 (>60 ml/min/1.73 sqM); Blood Urea Nitrogen 15 mg/dL (7-17); Calcium 9.6 mg/dL (8.4-10.2); Chloride 100 mmol/L (98-107); Glucose 493 mg/dL (74-99); Non-African American GFR(CKD) >90 (>60 ml/min/1.73 sqM); Sodium 134 mmol/L (137-145); Total Bilirubin 1.3 mg/dL (0.2-1.3)
[2023-02-15 21:26] LABS: Basophils # (A) 0.1 k/uL (0-0.2); Basophils % (A) 0 %; Eosinophils # (A) 0.1 k/uL (0-0.7); Eosinophils % (A) 0 %; HCT 49.2 % (34.0-46.0); HGB 16.5 gm/dL (11.4-16.0); Lymphocytes % (A) 11 %; MCH 30.4 pg (25.0-35.0); MCHC 33.5 g/dL (31.0-37.0); MCV 90.7 fL (80.0-100.0); Mean Platelet Volume 8.9; Monocytes # (A) 0.4 k/uL (0-1.0); Monocytes % (A) 2 %; Neutrophils # (A) 15.6 k/uL (1.3-7.7); Neutrophils % (A) 85 %; Platelet Count 404 k/uL (150-450); RBC 5.43 m/uL (3.80-5.40); RDW 12.6 % (11.5-15.5); WBC 18.4 k/uL (3.8-10.6)
--- NOTE | 2023-02-15 21:26 | XR ---
EXAMINATION TYPE: XR chest 2V DATE OF EXAM: 02/15/2023 9:22 PM CLINICAL INDICATION:Female, 32 years old with history of cough; PHH COMPARISON: Chest radiographs from 04/06/2022 TECHNIQUE: XR chest 2V Frontal and lateral views of the chest. FINDINGS: Lungs/Pleura: There is no evidence of pleural effusion, focal consolidation, or pneumothorax. Pulmonary vascularity: Unremarkable. Heart/mediastinum: Cardiomediastinal silhouette is unremarkable. Musculoskeletal: No acute osseous pathology. IMPRESSION: No acute cardiopulmonary disease/process.
[2023-02-15 21:27] LABS: AST 24 U/L (14-36); Alkaline Phosphatase 161 U/L (38-126); Carbon Dioxide <5 mmol/L (22-30); Potassium 5.2 mmol/L (3.5-5.1)
[2023-02-15 21:41] LABS: Appearance,Urine Clear (Clear); Bilirubin,Urine Negative (Negative); Blood,Urine Negative (Negative); Color,Urine Colorless; Glucose,Urine (UA) 4+ (Negative); Leukocyte Esterase,Urine Negative (Negative); Nitrite,Urine Negative (Negative); Protein,Urine Negative (Negative); Specific Gravity,Urine 1.026 (1.001-1.035); Urobilinogen,Urine <2.0 mg/dL (<2.0)
[2023-02-15 21:51] LABS: Ketones,Urine 4+ (Negative)
[2023-02-15] MEDS ORDERED: SODIUM CHLORIDE 0.9% 2,000 ML IV ONE (22:47)
[2023-02-15] MEDS ORDERED: ONDANSETRON 4 MG/2 ML VIAL IVP STA (22:49)
[2023-02-15 22:57] LABS: Glucose,Whole Blood 408 mg/dL (70-110)
[2023-02-15] MEDS: INSULIN REGULAR 100 UNIT in SODIUM CHLORIDE 0.9% 100 ML IV SCH (22:58)
[2023-02-15 23:22] LABS: Allen Test Performed? Yes
[2023-02-15 23:23] LABS: ABG HCO3 8 mmol/L (21-25); ABG PCO2 21 mmHg (35-45); ABG PH 7.16 (7.35-7.45); ABG PO2 107 mmHg (83-108); ABG TCO2 8 mmol/L (19-24)
[2023-02-15 23:24] LABS: ABG Base Excess -21.2 mmol/L; ABG Oxygen Saturation 96.9 % (94-97)
[2023-02-16 00:01] LABS: Glucose,Whole Blood 353 mg/dL (70-110)
[2023-02-16 00:55] LABS: VBG PH 7.12 (7.31-7.41)
[2023-02-16 01:28] LABS: Glucose,Whole Blood 172 mg/dL (70-110)
[2023-02-16 01:31] LABS: African American GFR (CKD) >90 (>60 ml/min/1.73 sqM); Anion Gap 22 mmol/L; Blood Urea Nitrogen 13 mg/dL (7-17); Chloride 105 mmol/L (98-107); Glucose 256 mg/dL (74-99); Non-African American GFR(CKD) >90 (>60 ml/min/1.73 sqM); Sodium 135 mmol/L (137-145)
--- NOTE | 2023-02-16 01:35 | P.HPIM ---
History of Present Illness H&P Date: 02/15/23 Patient is a 32-year-old female with a PMH of type I DM, hyperlipidemia, hypertension, and depression who presents to the emergency room with complaints of nausea and vomiting. Patient reports nausea with vomiting for 2 days, which is usually her primary symptom when she is in DKA. She has been out of her glucose test strips for the past week and a half and was told that her insurance co-pay for the strips was $200 which she could not afford. She has thereby been guessing the doses of her insulin 70/30. Denies fainting chest discomfort, shortness of breath, fever, chills, cough, abdominal pain, diarrhea. Chest x-ray in the emergency room was unremarkable with EKG showing sinus rhythm with a left bundle-branch block at 76 bpm (unchanged from prior). Laboratory evaluation showed an ABG pH 7.16, bicarb 8, WBC count 18.4, hemoglobin 16.5, sodium 134, potassium 5.2 (hemolyzed), glucose 493 with CO2 less than 5 and UA showing 4+ glucose and 4+ ketones with acetone positive. ED documentation reviewed and case discussed with ED provider. Review of systems: Pertinent positives and negatives as discussed in HPI, a complete review of systems was performed and all other systems are negative. Physical examination: Vital signs reviewed General: non toxic, no distress, appears at stated age, obese Derm: no unusual rashes/lesions, warm Head: atraumatic, normocephalic, symmetric Eyes: EOMI, no lid lag, anicteric sclera, pupils equal round reactive to light ENT: Nose and ears atraumatic Neck: No cervical lymphadenopathy, trachea midline, supple Mouth: no lip lesion, mucus membranes moist Cardiovascular: S1S2 reg, no murmur, positive dorsalis pedis pulse bilateral, no edema Lungs: CTA bilateral, no rhonchi, no rales, no accessory muscle use Abdominal: soft, nontender to palpation, no guarding Ext: muscle strength 5 out of 5 in all 4 extremities grossly, no gross muscle atrophy, no contractures, Neuro: CN II-XI grossly intact, no gross focal neuro deficits Psych: Alert, oriented, appropriate affect Assessment: DKA in setting of type I DM Chronic conditions: Hyperlipidemia, hypertension, depression Imaging: Chest x-ray in the emergency room was unremarkable with EKG showing sinus rhythm with a left bundle-branch block at 76 bpm (unchanged from prior). Data Review: Laboratory evaluation showed an ABG pH 7.16, bicarb 8, WBC count 18.4, hemoglobin 16.5, sodium 134, potassium 5.2 (hemolyzed), glucose 493 with CO2 less than 5 and UA showing 4+ glucose and 4+ ketones with acetone positive. Plan: Continue with insulin infusion Blood glucose monitoring every hour Monitor BMP every 4 hours Continue with IV fluids D5 half an acid 150 mL per hour Cardiac monitoring Resume home meds once reconciled DVT prophylaxis: Lovenox Subq The patient is admitted with an anticipated greater than 2 midnight stay for evaluation of DKA CODE STATUS: Full Code Discussed with: Patient Anticipated discharge place: Home Past Medical History Past Medical History: Diabetes Mellitus, Hearing Disorder / Deafness, Hypertension, Musculoskeletal Disorder Additional Past Medical History / Comment(s): [place], 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, non ischemic cardiomyopathy; DKA History of Any Multi-Drug Resistant Organisms: None Reported Past Surgical History: Ear Surgery, Tonsillectomy Past Anesthesia/Blood Transfusion Reactions: No Reported Reaction Past Psychological History: Anxiety, Depression, PTSD Smoking Status: Current every day smoker Past Alcohol Use History: Occasional Past Drug Use History: Marijuana - Past Family History Father Family Medical History: Diabetes Mellitus Mother Family Medical History: Coronary Artery Disease (CAD) Medications and Allergies Home Medications Medication Instructions Recorded Confirmed Type Atorvastatin [Lipitor] 10 mg PO HS 04/06/22 04/06/22 History Escitalopram Oxalate [Lexapro] 20 mg PO DAILY 04/06/22 04/06/22 History Insulin NPH/Reg Insulin 70/30 50 unit SQ TID-W/MEALS 04/06/22 04/06/22 History [humuLIN 70/30 VIAL] hydrOXYzine pamoate [Vistaril] 25 mg PO TID 04/06/22 04/06/22 History Syringe-Needle,Insulin,0.5 ml 1 syr SQ DIRECTED #90 each 04/08/22 Rx [Insulin Syringe 28G 1/2" 0.5ML] lisinopriL 2.5 mg PO DAILY #30 tablet 04/08/22 Rx Allergies Allergy/AdvReac Type Severity Reaction Status Date / Time No Known Allergies Allergy Verified 02/15/23 20:00 Physical Exam Vitals: Vital Signs Temp Pulse Resp BP Pulse Ox 02/16/23 00:53 85 18 136/65 100 02/15/23 20:00 98.3 F 88 18 127/68 98 Intake and Output 02/15/23 02/15/23 02/16/23 14:59 22:59 06:59 Intake Total 1.229 Balance 1.229 Intake: Intake, IV Titration 1.229 Amount Insulin Regular 100 unit 1.229 In Sodium Chloride 0.9% 100 ml @ 0.1 UNITS/KG/HR 10.537 mls/hr IV .[id number] [facility] Rx#:[id number] Other: Weight 104.326 kg Results CBC & Chem 7: 02/15/23 20:52 02/15/23 20:52 Labs: Abnormal Lab Results - Last 24 Hours (Table) 02/15/23 02/15/23 02/15/23 Range/Units 20:03 20:52 20:52 WBC 18.4 H (3.8-10.6) k/uL RBC 5.43 H (3.80-5.40) m/uL Hgb 16.5 H (11.4-16.0) gm/dL Hct 49.2 H (34.0-46.0) % Neutrophils # 15.6 H (1.3-7.7) k/uL ABG pH (7.35-7.45) ABG pCO2 (35-45) mmHg ABG HCO3 (21-25) mmol/L ABG Total CO2 (19-24) mmol/L VBG pH (7.31-7.41) VBG pCO2 (37-51) mmHg VBG HCO3 (24-28) mmol/L Sodium 134 L (137-145) mmol/L Potassium 5.2 H (3.5-5.1) mmol/L Carbon Dioxide <5 L* (22-30) mmol/L Glucose 493 H (74-99) mg/dL POC Glucose (mg/dL) 498 H (70-110) mg/dL Alkaline Phosphatase 161 H (38-126) U/L Urine Glucose (UA) (Negative) Urine Ketones (Negative) 02/15/23 02/15/23 02/15/23 Range/Units 21:15 22:56 23:04 WBC (3.8-10.6) k/uL RBC (3.80-5.40) m/uL Hgb (11.4-16.0) gm/dL Hct (34.0-46.0) % Neutrophils # (1.3-7.7) k/uL ABG pH 7.16 L* (7.35-7.45) ABG pCO2 21 L (35-45) mmHg ABG HCO3 8 L* (21-25) mmol/L ABG Total CO2 8 L (19-24) mmol/L VBG pH (7.31-7.41) VBG pCO2 (37-51) mmHg VBG HCO3 (24-28) mmol/L Sodium (137-145) mmol/L Potassium (3.5-5.1) mmol/L Carbon Dioxide (22-30) mmol/L Glucose (74-99) mg/dL POC Glucose (mg/dL) 408 H (70-110) mg/dL Alkaline Phosphatase (38-126) U/L Urine Glucose (UA) 4+ H (Negative) Urine Ketones 4+ H (Negative) 02/15/23 02/16/23 02/16/23 Range/Units 23:42 00:00 01:27 WBC (3.8-10.6) k/uL RBC (3.80-5.40) m/uL Hgb (11.4-16.0) gm/dL Hct (34.0-46.0) % Neutrophils # (1.3-7.7) k/uL ABG pH (7.35-7.45) ABG pCO2 (35-45) mmHg ABG HCO3 (21-25) mmol/L ABG Total CO2 (19-24) mmol/L VBG pH 7.12 L* (7.31-7.41) VBG pCO2 24 L (37-51) mmHg VBG HCO3 8 L* (24-28) mmol/L Sodium (137-145) mmol/L Potassium (3.5-5.1) mmol/L Carbon Dioxide (22-30) mmol/L Glucose (74-99) mg/dL POC Glucose (mg/dL) 353 H 172 H (70-110) mg/dL Alkaline Phosphatase (38-126) U/L Urine Glucose (UA) (Negative) Urine Ketones (Negative)
[2023-02-16 01:43] LABS: Carbon Dioxide 8 mmol/L (22-30); Phosphorus 3.6 mg/dL (2.5-4.5); Potassium 4.6 mmol/L (3.5-5.1)
[2023-02-16] MEDS ORDERED: DEXTROSE 5%-0.45% NACL 1,000 ML with POTASSIUM CHLORIDE 20 MEQ IV SCH ×2 (02:00)
[2023-02-16 02:24] LABS: Glucose,Whole Blood 119 mg/dL (70-110)
[2023-02-16] MEDS: D5-0.45% NACL WITH KCL 20MEQ/L 1,000 ML IV SCH ×4 (02:27→23:26)
[2023-02-16 03:24] LABS: Glucose,Whole Blood 99 mg/dL (70-110)
[2023-02-16 04:19] LABS: Glucose,Whole Blood 113 mg/dL (70-110)
[2023-02-16 05:23] LABS: Glucose,Whole Blood 91 mg/dL (70-110)
[2023-02-16 05:46] LABS: African American GFR (CKD) >90 (>60 ml/min/1.73 sqM); Anion Gap 17 mmol/L; Blood Urea Nitrogen 12 mg/dL (7-17); Carbon Dioxide 11 mmol/L (22-30); Chloride 103 mmol/L (98-107); Glucose 96 mg/dL (74-99); Non-African American GFR(CKD) >90 (>60 ml/min/1.73 sqM); Phosphorus 3.2 mg/dL (2.5-4.5); Potassium 4.6 mmol/L (3.5-5.1); Sodium 131 mmol/L (137-145)
[2023-02-16 05:46] LABS: Glucose,Whole Blood 100 mg/dL (70-110)
[2023-02-16 06:55] LABS: Glucose,Whole Blood 80 mg/dL (70-110)
[2023-02-16 07:59] LABS: Glucose,Whole Blood 89 mg/dL (70-110)
[2023-02-16 08:37] LABS: Glucose,Whole Blood 104 mg/dL (70-110)
[2023-02-16 09:01] LABS: Glucose,Whole Blood 116 mg/dL (70-110)
[2023-02-16] MEDS: ENOXAPARIN 40 MG/0.4 ML SYRINGE SQ SCH (09:31)
[2023-02-16 09:56] LABS: ALT 18 U/L (4-34); AST 21 U/L (14-36); African American GFR (CKD) >90 (>60 ml/min/1.73 sqM); Albumin 3.6 g/dL (3.5-5.0); Alkaline Phosphatase 109 U/L (38-126); Anion Gap 14 mmol/L; Blood Urea Nitrogen 10 mg/dL (7-17); Calcium 8.4 mg/dL (8.4-10.2); Carbon Dioxide 14 mmol/L (22-30); Chloride 104 mmol/L (98-107); Glucose 108 mg/dL (74-99); Non-African American GFR(CKD) >90 (>60 ml/min/1.73 sqM); Potassium 4.4 mmol/L (3.5-5.1); Sodium 132 mmol/L (137-145); Total Protein 6.2 g/dL (6.3-8.2)
[2023-02-16] MEDS: INSULIN REGULAR 100 UNIT in SODIUM CHLORIDE 0.9% 100 ML IV SCH ×2 (09:57→18:36)
[2023-02-16 10:02] LABS: Glucose,Whole Blood 141 mg/dL (70-110)
[2023-02-16 10:39] VITALS: BMI 36.2
[2023-02-16 11:10] LABS: Glucose,Whole Blood 155 mg/dL (70-110)
[2023-02-16] MEDS: lisinopriL 20 MG TAB PO SCH ×2 (11:47→11:51)
[2023-02-16] MEDS: ESCITALOPRAM 20 MG TAB PO SCH (11:47)
[2023-02-16] MEDS: hydrOXYzine pamoate 25 MG CAP PO SCH ×3 (11:48→21:03)
[2023-02-16 12:16] LABS: Glucose,Whole Blood 204 mg/dL (70-110)
--- NOTE | 2023-02-16 13:23 | P.PN ---
Subjective Progress Note Date: 02/16/23 No new complaints. Pt reports having an appetite. BMP still shows gap is present. Ongoing insulin gtt. Gen: awake, alert HEENT: normocephalic, atraumatic, good hearing acuity, moist mucous membranes Resp: good air exchange, breathing comfortably with no accessory muscle use CVS: good distal perfusion x 4, GI: soft, NTTP, ND : no SPT, no CVAT, nuñez catheter not present MSK: no pitting edema, no clubbing Neuro: non-focal, moving all extremities Psych: cooperative, euthymic mood Hospital course: Patient is a 32-year-old female with a PMH of type I DM, hyperlipidemia, hypertension, and depression who presented to the emergency room with complaints of nausea and vomiting. Chest x-ray in the emergency room was unremarkable with EKG showing sinus rhythm with a left bundle-branch block at 76 bpm (unchanged from prior). Laboratory evaluation showed an ABG pH 7.16, bicarb 8, WBC count 18.4, hemoglobin 16.5, sodium 134, potassium 5.2 (hemolyzed), glucose 493 with CO2 less than 5 and UA showing 4+ glucose and 4+ ketones with acetone positive. Assessment/plan: DKA in setting of type I DM -Continue with insulin infusion -Blood glucose monitoring every hour -Monitor BMP every 4 hours -Continue with IV fluids D5 half an acid 150 mL per hour -Cardiac monitoring Hyperlipidemia Hypertension Depression -Home medications reviewed and reconciled Imaging: Chest x-ray in the emergency room was unremarkable with EKG showing sinus rhythm with a left bundle-branch block at 76 bpm (unchanged from prior). Data Review: Basic metabolic panel: Sodium 132, CO2 14, anion gap 14, creatinine 0.36 CB-204 DVT prophylaxis: Lovenox Subq The patient is admitted with an anticipated greater than 2 midnight stay for evaluation of DKA CODE STATUS: Full Code Discussed with: Patient Anticipated discharge place: Home Objective - Vital Signs Vital signs: Vital Signs Temp 98.3 F 02/16/23 11:52 Pulse 86 02/16/23 11:52 Resp 16 02/16/23 11:52 BP 86/56 02/16/23 11:52 Pulse Ox 100 02/16/23 11:52 FiO2 Intake & Output 01/03/24 01/04/24 01/04/24 18:59 06:59 18:59 Intake Total 34.156 450 Output Total 250 Balance 34.156 200 Weight 105 kg 105 kg Intake: IV 450 D5-0.45% NaCl with KCl 450 20Meq/l 1,000 ml @ 150 mls/hr IV .Q6H40M [facility] Rx# :[id number] Intake, IV Titration 34.156 0 Amount Insulin Regular 100 unit 34.156 0 In Sodium Chloride 0.9% 100 ml @ 0.1 UNITS/KG/HR 10.537 mls/hr IV .Q9H36M [facility] Rx#:[id number] Output: Urine 250 Other: # Voids 1 - Labs CBC & Chem 7: 02/15/23 20:52 02/16/23 09:01 Labs: Abnormal Lab Results - Last 24 Hours (Table) 02/15/23 02/15/23 02/15/23 Range/Units 20:03 20:52 20:52 WBC 18.4 H (3.8-10.6) k/uL RBC 5.43 H (3.80-5.40) m/uL Hgb 16.5 H (11.4-16.0) gm/dL Hct 49.2 H (34.0-46.0) % Neutrophils # 15.6 H (1.3-7.7) k/uL ABG pH (7.35-7.45) ABG pCO2 (35-45) mmHg ABG HCO3 (21-25) mmol/L ABG Total CO2 (19-24) mmol/L VBG pH (7.31-7.41) VBG pCO2 (37-51) mmHg VBG HCO3 (24-28) mmol/L Sodium 134 L (137-145) mmol/L Potassium 5.2 H (3.5-5.1) mmol/L Carbon Dioxide <5 L* (22-30) mmol/L Creatinine (0.52-1.04) mg/dL Glucose 493 H (74-99) mg/dL POC Glucose (mg/dL) 498 H (70-110) mg/dL Hemoglobin A1c (<=6.0) % Alkaline Phosphatase 161 H (38-126) U/L Total Protein (6.3-8.2) g/dL Urine Glucose (UA) (Negative) Urine Ketones (Negative) 01/05/0602/15/23 02/15/23 Range/Units 21:15 22:56 23:04 WBC (3.8-10.6) k/uL RBC (3.80-5.40) m/uL Hgb (11.4-16.0) gm/dL Hct (34.0-46.0) % Neutrophils # (1.3-7.7) k/uL ABG pH 7.16 L* (7.35-7.45) ABG pCO2 21 L (35-45) mmHg ABG HCO3 8 L* (21-25) mmol/L ABG Total CO2 8 L (19-24) mmol/L VBG pH (7.31-7.41) VBG pCO2 (37-51) mmHg VBG HCO3 (24-28) mmol/L Sodium (137-145) mmol/L Potassium (3.5-5.1) mmol/L Carbon Dioxide (22-30) mmol/L Creatinine (0.52-1.04) mg/dL Glucose (74-99) mg/dL POC Glucose (mg/dL) 408 H (70-110) mg/dL Hemoglobin A1c (<=6.0) % Alkaline Phosphatase (38-126) U/L Total Protein (6.3-8.2) g/dL Urine Glucose (UA) 4+ H (Negative) Urine Ketones 4+ H (Negative) 02/15/23 02/16/23 02/16/23 Range/Units 23:42 00:00 00:46 WBC (3.8-10.6) k/uL RBC (3.80-5.40) m/uL Hgb (11.4-16.0) gm/dL Hct (34.0-46.0) % Neutrophils # (1.3-7.7) k/uL ABG pH (7.35-7.45) ABG pCO2 (35-45) mmHg ABG HCO3 (21-25) mmol/L ABG Total CO2 (19-24) mmol/L VBG pH 7.12 L* (7.31-7.41) VBG pCO2 24 L (37-51) mmHg VBG HCO3 8 L* (24-28) mmol/L Sodium 135 L (137-145) mmol/L Potassium (3.5-5.1) mmol/L Carbon Dioxide 8 L* (22-30) mmol/L Creatinine 0.43 L (0.52-1.04) mg/dL Glucose 256 H (74-99) mg/dL POC Glucose (mg/dL) 353 H (70-110) mg/dL Hemoglobin A1c (<=6.0) % Alkaline Phosphatase (38-126) U/L Total Protein (6.3-8.2) g/dL Urine Glucose (UA) (Negative) Urine Ketones (Negative) 02/16/23 02/16/23 02/16/23 Range/Units : 02:23 04:16 WBC (3.8-10.6) k/uL RBC (3.80-5.40) m/uL Hgb (11.4-16.0) gm/dL Hct (34.0-46.0) % Neutrophils # (1.3-7.7) k/uL ABG pH (7.35-7.45) ABG pCO2 (35-45) mmHg ABG HCO3 (21-25) mmol/L ABG Total CO2 (19-24) mmol/L VBG pH (7.31-7.41) VBG pCO2 (37-51) mmHg VBG HCO3 (24-28) mmol/L Sodium (137-145) mmol/L Potassium (3.5-5.1) mmol/L Carbon Dioxide (22-30) mmol/L Creatinine (0.52-1.04) mg/dL Glucose (74-99) mg/dL POC Glucose (mg/dL) 172 H 119 H 113 H (70-110) mg/dL Hemoglobin A1c (<=6.0) % Alkaline Phosphatase (38-126) U/L Total Protein (6.3-8.2) g/dL Urine Glucose (UA) (Negative) Urine Ketones (Negative) 02/16/23 02/16/23 02/16/23 Range/Units : 04: 09:00 WBC (3.8-10.6) k/uL RBC (3.80-5.40) m/uL Hgb (11.4-16.0) gm/dL Hct (34.0-46.0) % Neutrophils # (1.3-7.7) k/uL ABG pH (7.35-7.45) ABG pCO2 (35-45) mmHg ABG HCO3 (21-25) mmol/L ABG Total CO2 (19-24) mmol/L VBG pH (7.31-7.41) VBG pCO2 (37-51) mmHg VBG HCO3 (24-28) mmol/L Sodium 131 L (137-145) mmol/L Potassium (3.5-5.1) mmol/L Carbon Dioxide 11 L (22-30) mmol/L Creatinine 0.40 L (0.52-1.04) mg/dL Glucose (74-99) mg/dL POC Glucose (mg/dL) 116 H (70-110) mg/dL Hemoglobin A1c 10.6 H (<=6.0) % Alkaline Phosphatase (38-126) U/L Total Protein (6.3-8.2) g/dL Urine Glucose (UA) (Negative) Urine Ketones (Negative) 02/16/23 02/16/23 02/16/23 Range/Units 09:01 10:00 11:09 WBC (3.8-10.6) k/uL RBC (3.80-5.40) m/uL Hgb (11.4-16.0) gm/dL Hct (34.0-46.0) % Neutrophils # (1.3-7.7) k/uL ABG pH (7.35-7.45) ABG pCO2 (35-45) mmHg ABG HCO3 (21-25) mmol/L ABG Total CO2 (19-24) mmol/L VBG pH (7.31-7.41) VBG pCO2 (37-51) mmHg VBG HCO3 (24-28) mmol/L Sodium 132 L (137-145) mmol/L Potassium (3.5-5.1) mmol/L Carbon Dioxide 14 L (22-30) mmol/L Creatinine 0.36 L (0.52-1.04) mg/dL Glucose 108 H (74-99) mg/dL POC Glucose (mg/dL) 141 H 155 H (70-110) mg/dL Hemoglobin A1c (<=6.0) % Alkaline Phosphatase (38-126) U/L Total Protein 6.2 L (6.3-8.2) g/dL Urine Glucose (UA) (Negative) Urine Ketones (Negative) 02/16/23 Range/Units 12:14 WBC (3.8-10.6) k/uL RBC (3.80-5.40) m/uL Hgb (11.4-16.0) gm/dL Hct (34.0-46.0) % Neutrophils # (1.3-7.7) k/uL ABG pH (7.35-7.45) ABG pCO2 (35-45) mmHg ABG HCO3 (21-25) mmol/L ABG Total CO2 (19-24) mmol/L VBG pH (7.31-7.41) VBG pCO2 (37-51) mmHg VBG HCO3 (24-28) mmol/L Sodium (137-145) mmol/L Potassium (3.5-5.1) mmol/L Carbon Dioxide (22-30) mmol/L Creatinine (0.52-1.04) mg/dL Glucose (74-99) mg/dL POC Glucose (mg/dL) 204 H (70-110) mg/dL Hemoglobin A1c (<=6.0) % Alkaline Phosphatase (38-126) U/L Total Protein (6.3-8.2) g/dL Urine Glucose (UA) (Negative) Urine Ketones (Negative)
[2023-02-16 13:25] LABS: Glucose,Whole Blood 197 mg/dL (70-110)
[2023-02-16 14:14] LABS: Glucose,Whole Blood 196 mg/dL (70-110)
[2023-02-16] MEDS: ACETAMINOPHEN TAB 325 MG TAB PO PRN (14:16)
[2023-02-16 14:19] LABS: African American GFR (CKD) >90 (>60 ml/min/1.73 sqM); Anion Gap 11 mmol/L; Blood Urea Nitrogen 7 mg/dL (7-17); Calcium 8.3 mg/dL (8.4-10.2); Carbon Dioxide 16 mmol/L (22-30); Chloride 104 mmol/L (98-107); Glucose 179 mg/dL (74-99); Non-African American GFR(CKD) >90 (>60 ml/min/1.73 sqM); Potassium 4.1 mmol/L (3.5-5.1); Sodium 131 mmol/L (137-145)
[2023-02-16] MEDS ORDERED: ONDANSETRON 4 MG/2 ML VIAL IVP PRN (15:07)
[2023-02-16 15:12] LABS: Glucose,Whole Blood 209 mg/dL (70-110)
[2023-02-16 16:18] LABS: Glucose,Whole Blood 210 mg/dL (70-110)
[2023-02-16 17:44] LABS: Glucose,Whole Blood 247 mg/dL (70-110)
[2023-02-16 18:30] LABS: Glucose,Whole Blood 279 mg/dL (70-110)
[2023-02-16 19:09] LABS: Glucose,Whole Blood 260 mg/dL (70-110)
[2023-02-16 20:11] LABS: Glucose,Whole Blood 244 mg/dL (70-110)
[2023-02-16 20:49] LABS: African American GFR (CKD) >90 (>60 ml/min/1.73 sqM); Anion Gap 11 mmol/L; Blood Urea Nitrogen 5 mg/dL (7-17); Calcium 8.3 mg/dL (8.4-10.2); Carbon Dioxide 17 mmol/L (22-30); Chloride 104 mmol/L (98-107); Glucose 209 mg/dL (74-99); Non-African American GFR(CKD) >90 (>60 ml/min/1.73 sqM); Potassium 4.3 mmol/L (3.5-5.1); Sodium 132 mmol/L (137-145)
[2023-02-16] MEDS ORDERED: ATORVASTATIN 10 MG TAB PO SCH (21:00)
[2023-02-16 21:06] LABS: Glucose,Whole Blood 186 mg/dL (70-110)
[2023-02-16 22:11] LABS: Glucose,Whole Blood 158 mg/dL (70-110)
[2023-02-16 23:12] LABS: Glucose,Whole Blood 140 mg/dL (70-110)
[2023-02-16 23:56] LABS: Glucose,Whole Blood 137 mg/dL (70-110)
[2023-02-17 00:14] LABS: Glucose,Whole Blood 136 mg/dL (70-110)
[2023-02-17 02:01] LABS: Glucose,Whole Blood 164 mg/dL (70-110)
[2023-02-17 03:48] LABS: African American GFR (CKD) >90 (>60 ml/min/1.73 sqM); Anion Gap 10 mmol/L; Blood Urea Nitrogen 5 mg/dL (7-17); Calcium 8.6 mg/dL (8.4-10.2); Carbon Dioxide 18 mmol/L (22-30); Chloride 107 mmol/L (98-107); Glucose 146 mg/dL (74-99); Non-African American GFR(CKD) >90 (>60 ml/min/1.73 sqM); Potassium 4.1 mmol/L (3.5-5.1); Sodium 135 mmol/L (137-145)
[2023-02-17 04:27] LABS: Glucose,Whole Blood 206 mg/dL (70-110)
[2023-02-17] MEDS: ACETAMINOPHEN TAB 325 MG TAB PO PRN (05:52)
[2023-02-17] MEDS: D5-0.45% NACL WITH KCL 20MEQ/L 1,000 ML IV SCH (07:27)
[2023-02-17] MEDS ORDERED: INSULN ASP PRT/INSULIN ASPART 100 UNIT/ML 10 ML VIAL SQ SCH (07:30)
[2023-02-17] MEDS: ENOXAPARIN 40 MG/0.4 ML SYRINGE SQ SCH (08:06)
[2023-02-17] MEDS: lisinopriL 20 MG TAB PO SCH (08:06)
[2023-02-17] MEDS: hydrOXYzine pamoate 25 MG CAP PO SCH (08:06)
[2023-02-17] MEDS: ESCITALOPRAM 20 MG TAB PO SCH (08:06)
[2023-02-17 08:15] VITALS: BP 124/82; PULSE 86; RESP 16; TEMP 98.5
[2023-02-17 09:25] LABS: African American GFR (CKD) >90 (>60 ml/min/1.73 sqM); Anion Gap 13 mmol/L; Blood Urea Nitrogen 8 mg/dL (7-17); Calcium 8.8 mg/dL (8.4-10.2); Carbon Dioxide 18 mmol/L (22-30); Chloride 104 mmol/L (98-107); Glucose 249 mg/dL (74-99); Non-African American GFR(CKD) >90 (>60 ml/min/1.73 sqM); Potassium 4.6 mmol/L (3.5-5.1); Sodium 135 mmol/L (137-145)
== END 2023-02-17 10:59 | disposition home or self-care (01) | DRG 420 ==
LOC: EC 19:48 → 3SCARD 22:49 → 2SICU 02-16 00:41 → 3SCARD 02-17 07:46
PROVIDERS: ADMIT Internal Medicine; ATTEND Internal Medicine
DX: E10.10 Type 1 diabetes mellitus with ketoacidosis without coma (principal); E78.5 Hyperlipidemia, unspecified; F17.200 Nicotine dependence, unspecified, uncomplicated; F32.A Depression, unspecified; F43.10 Post-traumatic stress disorder, unspecified; G71.00 Muscular dystrophy, unspecified; H91.90 Unspecified hearing loss, unspecified ear; I10 Essential (primary) hypertension; I42.8 Other cardiomyopathies; I25.10 Atherosclerotic heart disease of native coronary artery without angina pectoris; I44.7 Left bundle-branch block, unspecified; Z79.4 Long term (current) use of insulin; Z79.899 Other long term (current) drug therapy; Z82.49 Family history of ischemic heart disease and other diseases of the circulatory system; Z83.3 Family history of diabetes mellitus; Z28.310 Unvaccinated for COVID-19; Z11.52 Encounter for screening for COVID-19; Z28.21 Immunization not carried out because of patient refusal; Z91.141 Patient's other noncompliance with medication regimen due to financial hardship
CPT/HCPCS: 36415; 36600; 71046; 80048; 80051; 80053; 81003; 81025; 82009; 82565; 82803; 82805; 82947; 83036; 83605; 84100; 84520; 85025; 87636; 93005; 96361; 96374; 99291

== ENCOUNTER 2023-04-08 20:11 | Emergency (ER) | payer OTHER ==
[2023-04-08 20:41] LABS: Basophils # (A) 0.1 k/uL (0-0.2); Basophils % (A) 1 %; Eosinophils # (A) 0.2 k/uL (0-0.7); Eosinophils % (A) 1 %; HCT 43.8 % (34.0-46.0); HGB 15.4 gm/dL (11.4-16.0); Lymphocytes # (A) 4.5 k/uL (1.0-4.8); Lymphocytes % (A) 37 %; MCH 29.9 pg (25.0-35.0); MCHC 35.2 g/dL (31.0-37.0); Mean Platelet Volume 8.1; Monocytes # (A) 0.8 k/uL (0-1.0); Monocytes % (A) 7 %; Neutrophils # (A) 6.3 k/uL (1.3-7.7); Neutrophils % (A) 52 %; Platelet Count 344 k/uL (150-450); RBC 5.15 m/uL (3.80-5.40); RDW 12.3 % (11.5-15.5); WBC 12.1 k/uL (3.8-10.6)
[2023-04-08 20:52] LABS: ALT 26 U/L (4-34); AST 32 U/L (14-36); African American GFR (CKD) >90 (>60 ml/min/1.73 sqM); Albumin 4.6 g/dL (3.5-5.0); Alcohol <10 mg/dL; Alkaline Phosphatase 102 U/L (38-126); Anion Gap 10 mmol/L; Blood Urea Nitrogen 13 mg/dL (7-17); Calcium 10.2 mg/dL (8.4-10.2); Carbon Dioxide 21 mmol/L (22-30); Chloride 104 mmol/L (98-107); Glucose 89 mg/dL (74-99); Non-African American GFR(CKD) >90 (>60 ml/min/1.73 sqM); Potassium 5.1 mmol/L (3.5-5.1); Sodium 135 mmol/L (137-145); Total Bilirubin 1.3 mg/dL (0.2-1.3); Total Protein 7.4 g/dL (6.3-8.2)
[2023-04-08 20:56] LABS: INR 0.9 (<1.2); Partial Thromboplastin Time 21.5 sec (22.0-30.0)
[2023-04-08 21:06] LABS: MCV 85.1 fL (80.0-100.0)
[2023-04-08 21:09] LABS: HCG,Qualitative Serum Not Detected
[2023-04-08] MEDS: SODIUM CHLORIDE 0.9% 1,000 ML IV ONE (21:09)
[2023-04-08 21:10] LABS: Glucose,Whole Blood 119 mg/dL (70-110)
[2023-04-08] MEDS ORDERED: SODIUM CHLORIDE 0.9% 1,000 ML IV STA (21:10)
[2023-04-08 21:16] LABS: VBG PH 7.42 (7.31-7.41)
--- NOTE | 2023-04-08 21:42 | ED ---
General Adult HPI - General Chief complaint: Anxiety Stated complaint: diabetic issues/anxiety Time Seen by Provider: 04/08/23 20:20 Source: EMS, RN notes reviewed, old records reviewed Mode of arrival: EMS Limitations: no limitations - History of Present Illness Initial comments: Patient is a 32-year-old female who presents emergency department complaining of possible altered mental status. Is a history of diabetes, hypertension, left bundle branch block. Patient originally called EMS for low blood sugar. She did not check it. She was without her blood sugar strips. She is currently alert and oriented x 2-3. Per EMS, patient's boyfriend states this is baseline for her. She does seem extremely anxious at this time. She states she is anxi ous. She was concerned regarding her blood sugar.. Seems slightly confused about what happened earlier. Denies any chest pain, shortness of breath, abdominal pain, nausea, vomiting. Endorses chronic body aches. Presents for further evaluation at this time.States she gets flustered and states she occasionally gets confused when she has bad anxiety.Patient states her anxiety and panic attack began when she thought her blood sugar was low. - Related Data Home Medications Medication Instructions Recorded Confirmed Atorvastatin [Lipitor] 10 mg PO HS 04/06/22 02/16/23 Escitalopram Oxalate [Lexapro] 20 mg PO DAILY 04/06/22 02/16/23 Insulin NPH/Reg Insulin 70/30 See Protocol SQ TID-W/MEALS 04/06/22 02/16/23 [humuLIN 70/30 VIAL] hydrOXYzine pamoate [Vistaril] 25 mg PO TID 04/06/22 02/16/23 lisinopriL [Zestril] 20 mg PO DAILY 02/16/23 02/16/23 metFORMIN HCL [Glucophage] 500 mg PO BID 02/16/23 02/16/23 Previous Rx's Medication Instructions Recorded Blood Sugar Diagnostic [Glucose 1 each MC AC-TID 30 Days #90 strip 04/08/23 Test Strip] hydrOXYzine HCL [Atarax] 25 mg PO TID PRN 7 Days #21 tab 04/08/23 Allergies Allergy/AdvReac Type Severity Reaction Status Date / Time No Known Allergies Allergy Verified 02/16/23 07:42 Review of Systems ROS Statement: Those systems with pertinent positive or pertinent negative responses have been documented in the HPI. Review of Systems: CONST: Denies fever EYES: Denies blurry vision ENT: Denies nasal congestion C/V: Denies Chest pain RESP: Denies shortness of breath GI: Denies abdominal pain : Denies dysuria SKIN: Denies rash. MSK: Denies joint pain. NEURO: Endorses anxiety ROS Other: All systems not noted in ROS Statement are negative. 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, non ischemic cardiomyopathy; DKA History of Any Multi-Drug Resistant Organisms: None Reported Past Surgical History: Ear Surgery, Tonsillectomy Past Anesthesia/Blood Transfusion Reactions: No Reported Reaction Past Psychological History: Anxiety, Depression, PTSD Smoking Status: Current every day smoker Past Alcohol Use History: Occasional Past Drug Use History: Marijuana - Past Family History Father Family Medical History: Diabetes Mellitus Mother Family Medical History: Coronary Artery Disease (CAD) General Exam - General Exam Comments Initial Comments: General: Appears anxious HEAD: Normal with no signs of head trauma. EYES: PERRLA, EOMI, conjunctiva normal, no discharge. Pupils are 3 mm and equal bilaterally. ENT: Hearing grossly intact, normal oropharynx. RESPIRATORY: Clear breath sounds bilaterally. No wheezes, rales, or rhonchi. C/V: Regular rate and rhythm. S1 and S2 auscultated, peripheral pulses 2+ and intact throughout ABD: Abd is soft, nontender, nondistended EXT: Normal range of motion, no obvious deformity SKIN: No rashes or lesions observed on exposed skin. NEURO: Alert and oriented x 2-3. No focal deficits. Cranial nerves II through XII are intact. Limitations: no limitations Course Vital Signs 04/08/23 20:16 Pulse Rate 90 Respiratory 19 Rate Blood Pressure 124/62 O2 Sat by Pulse 100 Oximetry Medical Decision Making - Medical Decision Making Was pt. sent in by a medical professional or institution (, PA, RESIDENTIAL ELECTRICIAN, urgent care, hospital, or retirement...) When possible be specific @ -No Did you speak to anyone other than the patient for history (EMS, parent, family, police, friend...)? What history was obtained from this source @ -No Did you review nursing and triage notes (agree or disagree)? Why? @ -I reviewed and agree with nursing and triage notes Were old charts reviewed (outside hosp., previous admission, EMS record, old EKG, old radiological studies, urgent care reports/EKG's, retirement records)? Report findings @ -Old charts reviewed Differential Diagnosis (chest pain, altered mental status, abdominal pain women, abdominal pain men, vaginal bleeding, weakness, fever, dyspnea, syncope, headache, dizziness, GI bleed, back pain, seizure, CVA, palpatations, mental hea lth, musculoskeletal)? @ -Differential Altered Mental Status: Hypoglycemia, DKA, hypercapnia, ETOH, overdose, CO poisoning, trauma, myxedema coma, HTN encephalopathy, infection, encephalitis, psychosis, intercranial hemorrhage, hepatic encephalopathy, meningitis, CVA, this is not meant to be an all-inclusive list EKG interpreted by me (3pts min.). @ -As above X-rays interpreted by me (1pt min.). @ -Chest x-ray reveals no obvious acute cardiopulmonary process. CT interpreted by me (1pt min.). @ -CT brain reveals no obvious acute intracranial process. U/S interpreted by me (1pt. min.). @ -None done What testing was considered but not performed or refused? (CT, X-rays, U/S, labs)? Why? @ -None What meds were considered but not given or refused? Why? @ -None Did you discuss the management of the patient with other professionals (professionals i.e. , PA, RESIDENTIAL ELECTRICIAN, lab, RT, psych nurse, social services specialist, flight control tower operator, teacher, retail loss prevention officer, case assistant)? Give summary @ -Discussed with [facility] physician Dr. Bonilla who accepted the admission Was smoking cessation discussed for >3mins.? @ -No Was critical care preformed (if so, how long)? @ -No Were there social determinants of health that impacted care today? How? (Homelessness, low income, unemployed, alcoholism, drug addiction, transportation, low edu. Level, literacy, decrease access to med. care, [facility], rehab)? @ -No Was there de-escalation of care discussed even if they declined (Discuss DNR or withdrawal of care, Hospice)? DNR status @ -No What co-morbidities impacted this encounter? (DM, HTN, Smoking, COPD, CAD, Cancer, CVA, ARF, Chemo, Hep., AIDS, mental health diagnosis, sleep apnea, morbid obesity)? @ -Diabetes Was patient admitted / discharged? Hospital course, mention meds given and route, prescriptions, significant lab abnormalities, going to OR and other pertinent info. @ -Patient presents confused and altered. Is alert and oriented x 2-3 at this time. But she had a diabetic episodes of low blood sugar however it was within acceptable limits when EMS arrived. We will obtain broad altered mental status workup. Vital signs within acceptable limits. Patient was in agreement this plan. She will be given IV fluids at this time. EKG shows chronic left bundle branch block but no signs of acute ischemia. Labs otherwise within acceptable limits other than lactic acid of 3.0 for which she recieved IV fluids. She is not . White count is minimally elevated at 12. Imaging is unremarkable. On reevaluation, patient is back to baseline. She states her anxiety has resolved. She is alert and oriented x 4. I discussed at length her workup and presentation. She states she has been without her hydroxyzine. She also states that her anxiety increased when she thought her blood sugar was low. She is out of test strips. I will provide her with prescriptions for her hydroxyzine for 1 week as well as a 1 month supply of glucose test strips as a prescription. She was in agreement this plan. This will be sent to her pharmacy. She has been dealing without these medications for multiple weeks at this time already. I discussed with her strict return precautions and she was otherwise in agreement the plan for discharge. She is back to her normal baseline mental status. She is not intoxicated. I instructed the patient to follow up with their PCP in the next 1-3 days. I explained that the patient should return to the emergency department if they experience any worsening symptoms. Strict return precautions were discussed with the patient. The patient expressed understanding of these instructions. I answered all questions that the patient had. The patient was discharged home in good condition with their prescriptions and follow up information. Undiagnosed new problem with uncertain prognosis? @ -No Drug Therapy requiring intensive monitoring for toxicity (Heparin, Nitro, Insulin, Cardizem)? @ -No Were any procedures done? @ -No Diagnosis/symptom? @ -Anxiety, panic attack Acute, or Chronic, or Acute on Chronic? @ -Acute Uncomplicated (without systemic symptoms) or Complicated (systemic symptoms)? @ -Complicated Side effects of treatment? @ -None Exacerbation, Progression, or Severe Exacerbation] @ -No Poses a threat to life or bodily function? @ -No - Lab Data Result diagrams: 04/08/23 20:31 04/08/23 20:31 Lab Results 04/08/23 04/08/23 04/08/23 Range/Units 20:31 20:31 20:31 WBC 12.1 H (3.8-10.6) k/uL RBC 5.15 (3.80-5.40) m/uL Hgb 15.4 (11.4-16.0) gm/dL Hct 43.8 (34.0-46.0) % MCV 85.1 D (80.0-100.0) fL MCH 29.9 (25.0-35.0) pg MCHC 35.2 (31.0-37.0) g/dL RDW 12.3 (11.5-15.5) % Plt Count 344 (150-450) k/uL MPV 8.1 Neutrophils % 52 % Lymphocytes % 37 % Monocytes % 7 % Eosinophils % 1 % Basophils % 1 % Neutrophils # 6.3 (1.3-7.7) k/uL Lymphocytes # 4.5 (1.0-4.8) k/uL Monocytes # 0.8 (0-1.0) k/uL Eosinophils # 0.2 (0-0.7) k/uL Basophils # 0.1 (0-0.2) k/uL PT 10.0 (10.0-12.5) sec INR 0.9 (<1.2) APTT 21.5 L (22.0-30.0) sec VBG pH (7.31-7.41) VBG pCO2 (37-51) mmHg VBG HCO3 (24-28) mmol/L Sodium 135 L (137-145) mmol/L Potassium 5.1 (3.5-5.1) mmol/L Chloride 104 (98-107) mmol/L Carbon Dioxide 21 L (22-30) mmol/L Anion Gap 10 mmol/L BUN 13 (7-17) mg/dL Creatinine 0.39 L (0.52-1.04) mg/dL Est GFR (CKD-EPI)AfAm >90 (>60 ml/min/1.73 sqM) Est GFR (CKD-EPI)NonAf >90 (>60 ml/min/1.73 sqM) Glucose 89 (74-99) mg/dL POC Glucose (mg/dL) (70-110) mg/dL POC Glu Occupational Therapy Teacher ID Plasma Lactic Acid Marshall (0.7-2.0) mmol/L Calcium 10.2 (8.4-10.2) mg/dL Total Bilirubin 1.3 (0.2-1.3) mg/dL AST 32 (14-36) U/L ALT 26 (4-34) U/L Alkaline Phosphatase 102 (38-126) U/L Ammonia (<30) umol/L Total Protein 7.4 (6.3-8.2) g/dL Albumin 4.6 (3.5-5.0) g/dL HCG, Qual Not Detected Serum Alcohol <10 mg/dL Acetone, Qual Negative (Negative) 04/08/23 04/08/23 04/08/23 Range/Units 20:31 20:59 21:05 WBC (3.8-10.6) k/uL RBC (3.80-5.40) m/uL Hgb (11.4-16.0) gm/dL Hct (34.0-46.0) % MCV (80.0-100.0) fL MCH (25.0-35.0) pg MCHC (31.0-37.0) g/dL RDW (11.5-15.5) % Plt Count (150-450) k/uL MPV Neutrophils % % Lymphocytes % % Monocytes % % Eosinophils % % Basophils % % Neutrophils # (1.3-7.7) k/uL Lymphocytes # (1.0-4.8) k/uL Monocytes # (0-1.0) k/uL Eosinophils # (0-0.7) k/uL Basophils # (0-0.2) k/uL PT (10.0-12.5) sec INR (<1.2) APTT (22.0-30.0) sec VBG pH 7.42 H (7.31-7.41) VBG pCO2 35 L (37-51) mmHg VBG HCO3 23 L (24-28) mmol/L Sodium (137-145) mmol/L Potassium (3.5-5.1) mmol/L Chloride (98-107) mmol/L Carbon Dioxide (22-30) mmol/L Anion Gap mmol/L BUN (7-17) mg/dL Creatinine (0.52-1.04) mg/dL Est GFR (CKD-EPI)AfAm (>60 ml/min/1.73 sqM) Est GFR (CKD-EPI)NonAf (>60 ml/min/1.73 sqM) Glucose (74-99) mg/dL POC Glucose (mg/dL) 119 H (70-110) mg/dL POC Glu Occupational Therapy Teacher ID Sharlene Watson Plasma Lactic Acid Marshall 3.0 H* (0.7-2.0) mmol/L Calcium (8.4-10.2) mg/dL Total Bilirubin (0.2-1.3) mg/dL AST (14-36) U/L ALT (4-34) U/L Alkaline Phosphatase (38-126) U/L Ammonia <9 (<30) umol/L Total Protein (6.3-8.2) g/dL Albumin (3.5-5.0) g/dL HCG, Qual Serum Alcohol mg/dL Acetone, Qual (Negative) - EKG Data -: EKG Interpreted by Me EKG Comments: 12-lead Electrocardiogram Interpretation Note EKG was reviewed and interpreted by myself. 12-lead ECG performed at 2034 is interpreted by me as revealing normal sinus rhythm with chronic left bundle branch block at a rate of 80 beats per minute. [place] is normal. NC interval is 157 ms, QRS duration is 161 ms, QTc is 449 ms.. There were no ST or T wave abnormalities to suggest myocardial ischemia or injury. R wave progression across the precordium was satisfactory. By my interpretation this EKG is non- diagnostic for acute ischemia. Disposition Clinical Impression: Panic attack, Anxiety Disposition: HOME SELF-CARE Condition: Good Instructions (If sedation given, give patient instructions): Generalized Anxiety Disorder (ED) Prescriptions: hydrOXYzine HCL [Atarax] 25 mg PO TID PRN 7 Days #21 tab PRN Reason: Anxiety Blood Sugar Diagnostic [Glucose Test Strip] 1 each AC-TID 30 Days #90 strip Is patient prescribed a controlled substance at d/c from ED?: No Referrals: Aristides Torres MD [Primary Care Provider] - 1-2 days Time of Disposition: 22:18
--- NOTE | 2023-04-08 21:51 | CT ---
EXAMINATION TYPE: CT brain wo con CT DLP: 1242.4 mGycm, Automated exposure control for dose reduction was used. DATE OF EXAM: 04/08/2023 9:26 PM COMPARISON: 02/26/2014. CLINICAL INDICATION:Female, 32 years old with history of Altered mental status, AMS. Anxiety. TECHNIQUE: Brain: Axial CT images of the brain were obtained with coronal and sagittal reformats created and rev iewed. Contrast used: None. Oral contrast used: None. FINDINGS: Brain: Extra-axial spaces: No abnormal extra-axial fluid collections. Ventricular system: Within normal limits Cerebral parenchyma: No acute intraparenchymal hemorrhage or mass effect. The gayle-white junction is well differentiated. Cerebellum: Unremarkable. Mass effect: No evidence of midline shift. Intracranial vasculature: unremarkable Soft tissues: Normal. Calvarium/osseous structures: No depressed skull fracture. Paranasal sinuses and mastoid air cells: Mild scattered paranasal sinus disease. Visualized orbits: Orbital contents are intact. IMPRESSION: No acute intracranial process.
--- NOTE | 2023-04-08 21:54 | XR ---
EXAMINATION TYPE: XR chest 2V DATE OF EXAM: 04/08/2023 9:32 PM CLINICAL INDICATION:Female, 32 years old with history of altered mental status; [facility] COMPARISON: Chest radiographs from 02/15/2023 TECHNIQUE: XR chest 2V Frontal and lateral views of the chest. FINDINGS: Lungs/Pleura: There is no evidence of pleural effusion, focal consolidation, or pneumothorax. Pulmonary vascularity: Unremarkable. Heart/mediastinum: Cardiomediastinal silhouette is unremarkable. Musculoskeletal: No acute osseous pathology. IMPRESSION: No acute cardiopulmonary disease/process.
[2023-04-08 22:37] VITALS: BP 121/83; PULSE 96; RESP 18; TEMP 98.1
--- NOTE | 2023-04-08 22:37 | ED ---
Medical Decision Making - Lab Data Result diagrams: 04/08/23 20:31 04/08/23 20:31 Lab Results 04/08/23 04/08/23 04/08/23 Range/Units 20:31 20:31 20:31 WBC 12.1 H (3.8-10.6) k/uL RBC 5.15 (3.80-5.40) m/uL Hgb 15.4 (11.4-16.0) gm/dL Hct 43.8 (34.0-46.0) % MCV 85.1 D (80.0-100.0) fL MCH 29.9 (25.0-35.0) pg MCHC 35.2 (31.0-37.0) g/dL RDW 12.3 (11.5-15.5) % Plt Count 344 (150-450) k/uL MPV 8.1 Neutrophils % 52 % Lymphocytes % 37 % Monocytes % 7 % Eosinophils % 1 % Basophils % 1 % Neutrophils # 6.3 (1.3-7.7) k/uL Lymphocytes # 4.5 (1.0-4.8) k/uL Monocytes # 0.8 (0-1.0) k/uL Eosinophils # 0.2 (0-0.7) k/uL Basophils # 0.1 (0-0.2) k/uL PT 10.0 (10.0-12.5) sec INR 0.9 (<1.2) APTT 21.5 L (22.0-30.0) sec VBG pH (7.31-7.41) VBG pCO2 (37-51) mmHg VBG HCO3 (24-28) mmol/L Sodium 135 L (137-145) mmol/L Potassium 5.1 (3.5-5.1) mmol/L Chloride 104 (98-107) mmol/L Carbon Dioxide 21 L (22-30) mmol/L Anion Gap 10 mmol/L BUN 13 (7-17) mg/dL Creatinine 0.39 L (0.52-1.04) mg/dL Est GFR (CKD-EPI)AfAm >90 (>60 ml/min/1.73 sqM) Est GFR (CKD-EPI)NonAf >90 (>60 ml/min/1.73 sqM) Glucose 89 (74-99) mg/dL POC Glucose (mg/dL) (70-110) mg/dL POC Glu System Specialist ID Plasma Lactic Acid Marshall (0.7-2.0) mmol/L Calcium 10.2 (8.4-10.2) mg/dL Total Bilirubin 1.3 (0.2-1.3) mg/dL AST 32 (14-36) U/L ALT 26 (4-34) U/L Alkaline Phosphatase 102 (38-126) U/L Ammonia (<30) umol/L Total Protein 7.4 (6.3-8.2) g/dL Albumin 4.6 (3.5-5.0) g/dL HCG, Qual Not Detected Serum Alcohol <10 mg/dL Acetone, Qual Negative (Negative) 04/08/23 04/08/23 04/08/23 Range/Units 20:31 20:59 21:05 WBC (3.8-10.6) k/uL RBC (3.80-5.40) m/uL Hgb (11.4-16.0) gm/dL Hct (34.0-46.0) % MCV (80.0-100.0) fL MCH (25.0-35.0) pg MCHC (31.0-37.0) g/dL RDW (11.5-15.5) % Plt Count (150-450) k/uL MPV Neutrophils % % Lymphocytes % % Monocytes % % Eosinophils % % Basophils % % Neutrophils # (1.3-7.7) k/uL Lymphocytes # (1.0-4.8) k/uL Monocytes # (0-1.0) k/uL Eosinophils # (0-0.7) k/uL Basophils # (0-0.2) k/uL PT (10.0-12.5) sec INR (<1.2) APTT (22.0-30.0) sec VBG pH 7.42 H (7.31-7.41) VBG pCO2 35 L (37-51) mmHg VBG HCO3 23 L (24-28) mmol/L Sodium (137-145) mmol/L Potassium (3.5-5.1) mmol/L Chloride (98-107) mmol/L Carbon Dioxide (22-30) mmol/L Anion Gap mmol/L BUN (7-17) mg/dL Creatinine (0.52-1.04) mg/dL Est GFR (CKD-EPI)AfAm (>60 ml/min/1.73 sqM) Est GFR (CKD-EPI)NonAf (>60 ml/min/1.73 sqM) Glucose (74-99) mg/dL POC Glucose (mg/dL) 119 H (70-110) mg/dL POC Glu System Specialist ID Sharlene Watson Plasma Lactic Acid Marshall 3.0 H* (0.7-2.0) mmol/L Calcium (8.4-10.2) mg/dL Total Bilirubin (0.2-1.3) mg/dL AST (14-36) U/L ALT (4-34) U/L Alkaline Phosphatase (38-126) U/L Ammonia <9 (<30) umol/L Total Protein (6.3-8.2) g/dL Albumin (3.5-5.0) g/dL HCG, Qual Serum Alcohol mg/dL Acetone, Qual (Negative) Disposition Clinical Impression: Anxiety, Panic attack, Medication refill Disposition: HOME SELF-CARE Condition: Good Instructions (If sedation given, give patient instructions): Generalized Anxiety Disorder (ED) Additional Instructions: Patient Presented for refill of her glucose monitor test strips as well which was provided as a prescription. Prescriptions: hydrOXYzine HCL [Atarax] 25 mg PO TID PRN 7 Days #21 tab PRN Reason: Anxiety Blood Sugar Diagnostic [Glucose Test Strip] 1 each MC AC-TID 30 Days #90 strip Is patient prescribed a controlled substance at d/c from ED?: No Referrals: Aristides Torres MD [Primary Care Provider] - 1-2 days
== END 2023-04-08 22:47 | disposition home or self-care (01) ==
LOC: EC 20:11
DX: F41.0 Panic disorder [episodic paroxysmal anxiety] (principal); I10 Essential (primary) hypertension; E11.649 Type 2 diabetes mellitus with hypoglycemia without coma; F32.A Depression, unspecified; F12.90 Cannabis use, unspecified, uncomplicated; F17.200 Nicotine dependence, unspecified, uncomplicated; Z79.4 Long term (current) use of insulin; Z79.84 Long term (current) use of oral hypoglycemic drugs; Z79.899 Other long term (current) drug therapy
CPT/HCPCS: 36415; 93005; 80053; 82140; 82803; 82009; 83605; 85025; 85610; 85730; 84703; 71046; 70450; 99285; 96360; G0480; 80320

== ENCOUNTER 2023-08-26 16:55 | Emergency (ER) | payer OTHER ==
[2023-08-26 17:37] VITALS: TEMP 98
--- NOTE | 2023-08-26 18:21 | ED ---
Recheck HPI - General Chief Complaint: Recheck/Abnormal Lab/Rx Stated Complaint: STD check Time Seen by Provider: 08/26/23 18:19 Source: patient, RN notes reviewed Mode of arrival: ambulatory Limitations: no limitations - History of Present Illness Initial Comments: 32-year-old female presented to the ER with a chief complaint of STD exposure. Patient states a recent sexual partner contacted her today and states he tested positive for syphilis. Patient is here for testing and treatment. She denies any vaginal discharge/bleeding, urinary complaints, abdominal pain, constipation/diarrhea, fevers, chills, nausea, vomiting, chest pain or shortness of breath. Patient is not concerned for other STDs but would like to be tested. - Related Data Home Medications Medication Instructions Recorded Confirmed Atorvastatin [Lipitor] 10 mg PO HS 04/06/22 02/16/23 Escitalopram Oxalate [Lexapro] 20 mg PO DAILY 04/06/22 02/16/23 Insulin NPH/Reg Insulin 70/30 See Protocol SQ TID-W/MEALS 04/06/22 02/16/23 [humuLIN 70/30 VIAL] hydrOXYzine pamoate [Vistaril] 25 mg PO TID 04/06/22 02/16/23 lisinopriL [Zestril] 20 mg PO DAILY 02/16/23 02/16/23 metFORMIN HCL [Glucophage] 500 mg PO BID 02/16/23 02/16/23 Previous Rx's Medication Instructions Recorded Blood Sugar Diagnostic [Glucose 1 each MC AC-TID 30 Days #90 strip 04/08/23 Test Strip] hydrOXYzine HCL [Atarax] 25 mg PO TID PRN 7 Days #21 tab 04/08/23 Allergies Allergy/AdvReac Type Severity Reaction Status Date / Time No Known Allergies Allergy Verified 08/26/23 17:37 Review of Systems ROS Statement: Those systems with pertinent positive or pertinent negative responses have been documented in the HPI. ROS Other: All systems not noted in ROS Statement are negative. 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, non ischemic cardiomyopathy; DKA History of Any Multi-Drug Resistant Organisms: None Reported Past Surgical History: Ear Surgery, Tonsillectomy Past Anesthesia/Blood Transfusion Reactions: No Reported Reaction Past Psychological History: Anxiety, Depression, PTSD Smoking Status: Current every day smoker, Vaper Past Alcohol Use History: Occasional Past Drug Use History: Marijuana - Past Family History Father Family Medical History: Diabetes Mellitus Mother Family Medical History: Coronary Artery Disease (CAD) General Exam Limitations: no limitations General appearance: alert, in no apparent distress Respiratory exam: Present: normal lung sounds bilaterally. Absent: respiratory distress, wheezes, rales, rhonchi, stridor Cardiovascular Exam: Present: regular rate, normal rhythm, normal heart sounds. Absent: systolic murmur, diastolic murmur, rubs, gallop, clicks GI/Abdominal exam: Present: soft, normal bowel sounds. Absent: distended, tenderness, guarding, rebound, rigid Skin exam: Present: warm, dry, intact, normal color. Absent: rash Course Vital Signs 08/26/23 17:32 Temperature 98.0 F Pulse Rate 91 Respiratory 18 Rate Blood Pressure 126/81 Medical Decision Making - Medical Decision Making Was pt. sent in by a medical professional or institution (RINKU Sánchez, RECHARGER, urgent care, hospital, or alf...) When possible be specific @ -No Did you speak to anyone other than the patient for history (EMS, parent, family, police, friend...)? What history was obtained from this source @ -No Did you review nursing and triage notes (agree or disagree)? Why? @ -I reviewed and agree with nursing and triage notes Were old charts reviewed (outside hosp., previous admission, EMS record, old EKG, old radiological studies, urgent care reports/EKG's, alf records)? Report findings @ -No old charts were reviewed Differential Diagnosis (chest pain, altered mental status, abdominal pain women, abdominal pain men, vaginal bleeding, weakness, fever, dyspnea, syncope, head ache, dizziness, GI bleed, back pain, seizure, CVA, palpatations, mental health, musculoskeletal)? @ -Syphilis, gonorrhea, trichomonas, chlamydia, urinary tract infection... this list is not meant to be all-inclusive EKG interpreted by me (3pts min.). @ -None X-rays interpreted by me (1pt min.). @ -None done CT interpreted by me (1pt min.). @ -None done U/S interpreted by me (1pt. min.). @ -None done What testing was considered but not performed or refused? (CT, X-rays, U/S, labs)? Why? @ -None What meds were considered but not given or refused? Why? @ -Patient refused prophylactic treatment of gonorrhea, chlamydia and trichomonas. Did you discuss the management of the patient with other professionals (professionals i.e. DrShady, PA, RECHARGER, lab, RT, psych nurse, geriatric social work professor, clinical technician, teacher, us customs and border officer, manager case)? Give summary @ -No Was smoking cessation discussed for >3mins.? @ -No Was critical care preformed (if so, how long)? @ -No Were there social determinants of health that impacted care today? How? (Homelessness, low income, unemployed, alcoholism, drug addiction, transportation, low edu. Level, literacy, decrease access to med. care, senior living, rehab)? @ -No Was there de-escalation of care discussed even if they declined (Discuss DNR or withdrawal of care, Hospice)? DNR status @ -No What co-morbidities impacted this encounter? (DM, HTN, Smoking, COPD, CAD, Ca ncer, CVA, ARF, Chemo, Hep., AIDS, mental health diagnosis, sleep apnea, morbid obesity)? @ -None Was patient admitted / discharged? Hospital course, mention meds given and route, prescriptions, significant lab abnormalities, going to OR and other pertinent info. @ -Discharge. 32-year-old female presented to ER with a chief complaint of syphilis exposure. History and physical exam completed. Vitals stable. Patient in no signs of acute distress and nontoxic-appearing. Exam unremarkable. Syphilis, gonorrhea, chlamydia and trichomonas testing collected. IM penicillin given for syphilis prophylaxis. Patient refused prophylactic treatment of gonorrhea, chlamydia and trichomonas. Urine analysis obtained negative for signs of infection. Urine hCG negative. Patient stable for discharge. Advised close follow-up with PCP. I also advised her to follow-up with the health department, information given. Strict return parameters discussed. Patient discharged in stable condition. Patient verbally expressed understanding agree with care plan. Case discussed with ED attending, Dr. Belle. Undiagnosed new problem with uncertain prognosis? @ -No Drug Therapy requiring intensive monitoring for toxicity (Heparin, Nitro, Insulin, Cardizem)? @ -No Were any procedures done? @ -No Diagnosis/symptom? @ -Syphilis exposure/STD exposure Acute, or Chronic, or Acute on Chronic? @ -Acute Uncomplicated (without systemic symptoms) or Complicated (systemic symptoms)? @ -Uncomplicated Side effects of treatment? @ -No Exacerbation, Progression, or Severe Exacerbation? @ -No Poses a threat to life or bodily function? How? (Chest pain, [place], [place], pneumonia, PE, COPD, DKA, ARF, appy, cholecystitis, CVA, Diverticulitis, Homicidal, Suicidal, threat to staff... and all critical care pts) @ -low - Lab Data Lab Results 08/26/23 08/26/23 Range/Units 18:33 18:33 Urine Color Colorless Urine Appearance Clear (Clear) Urine pH 8.0 (5.0-8.0) Ur Specific Kinde 1.009 (1.001-1.035) Urine Protein Negative (Negative) Urine Glucose (UA) Negative (Negative) Urine Ketones Negative (Negative) Urine Blood Negative (Negative) Urine Nitrite Negative (Negative) Urine Bilirubin Negative (Negative) Urine Urobilinogen <2.0 (<2.0) mg/dL Ur Leukocyte Esterase Negative (Negative) Urine HCG, Qual Not Detected (Not Detectd) Disposition Clinical Impression: Exposure to STD, Exposure to syphilis Disposition: HOME SELF-CARE Condition: Stable Instructions (If sedation given, give patient instructions): Sexually Transmitted Diseases (ED), Safe Sex Practices (ED) Additional Instructions: Please follow-up with health department. Notify all sexual partners. Return to the ER for any new or worsening concerns. [address] [address] Is patient prescribed a controlled substance at d/c from ED?: No Referrals: Aristides Torres MD [Primary Care Provider] - 1-2 days Time of Disposition: 19:23
[2023-08-26 19:18] LABS: Appearance,Urine Clear (Clear); Bilirubin,Urine Negative (Negative); Blood,Urine Negative (Negative); Color,Urine Colorless; Glucose,Urine (UA) Negative (Negative); Ketones,Urine Negative (Negative); Leukocyte Esterase,Urine Negative (Negative); Nitrite,Urine Negative (Negative); Protein,Urine Negative (Negative); Specific Gravity,Urine 1.009 (1.001-1.035); Urobilinogen,Urine <2.0 mg/dL (<2.0)
[2023-08-26] MEDS: PENICILLIN G BENZATHINE 1,200,000 UNIT/2 ML SYRINGE IM STA (19:30)
[2023-08-26 19:48] VITALS: BP 136/98; PULSE 75; RESP 20
[2023-08-28 13:32] LABS: C. trachomatis,PCR Positive (Negative)
[2023-08-28 14:29] LABS: N. gonorrhoeae,PCR Negative (Negative)
== END 2023-08-26 19:48 | disposition home or self-care (01) ==
LOC: EC 16:55
DX: Z20.2 Contact with and (suspected) exposure to infections with a predominantly sexual mode of transmission (principal); F17.290 Nicotine dependence, other tobacco product, uncomplicated
CPT/HCPCS: 36415; 81003; 81025; 87491; 87591; 86780; 99283; 96372; J0561

== ENCOUNTER 2023-10-10 22:03 | Emergency (ER) | payer OTHER ==
[2023-10-10 22:26] VITALS: RESP 18
--- NOTE | 2023-10-10 22:37 | ED ---
General Adult HPI - General Source: patient Mode of arrival: ambulatory Limitations: no limitations <Jose Daniel Eisenberg - Last Filed: 10/10/23 22:36> - General Source: patient, RN notes reviewed Mode of arrival: ambulatory Limitations: no limitations <Pura Mederos - Last Filed: 10/11/23 00:45> - General Chief complaint: Recheck/Abnormal Lab/Rx Stated complaint: L Arm Swollen Time Seen by Provider: 10/10/23 22:36 - History of Present Illness Initial comments: 32-year-old female presenting with chief complaint of left arm pain and swelling. She is seen at [facility] yesterday and had an ultrasound, she was diagnosed with phlebitis. She did have a recent IV in that arm to explain the phlebitis. However the patient is concerned because she had a student performing her ultrasound and they did not seem confident in their capabilities. Patient really just wants a second ultrasound to confirm what she was told yesterday (Jose Daniel Eisenberg) This is a 32-year-old female who presents to the emergency department for left arm pain and swelling. She was hospitalized at [facility] a week ago and had an IV in her left arm. She then started to develop pain and swelling shortly after it was removed and after she had been discharged. She went to [facility] yesterday and had an ultrasound demonstrating superficial phlebitis. She was given prescriptions for Keflex and naproxen. States that since then pain and swelling have gotten much worse. She is requesting a second opinion with another ultrasound and is concerned that the diamond powder technician was a student and may not have been accurate. Not currently taking blood thinners. (Pura Mederos) - Related Data Home Medications Medication Instructions Recorded Confirmed Atorvastatin [Lipitor] 10 mg PO HS 04/06/22 02/16/23 Escitalopram Oxalate [Lexapro] 20 mg PO DAILY 04/06/22 02/16/23 Insulin NPH/Reg Insulin 70/30 See Protocol SQ TID-W/MEALS 04/06/22 02/16/23 [humuLIN 70/30 VIAL] hydrOXYzine pamoate [Vistaril] 25 mg PO TID 04/06/22 02/16/23 lisinopriL [Zestril] 20 mg PO DAILY 02/16/23 02/16/23 metFORMIN HCL [Glucophage] 500 mg PO BID 02/16/23 02/16/23 Previous Rx's Medication Instructions Recorded Blood Sugar Diagnostic [Glucose 1 each MC AC-TID 30 Days #90 strip 04/08/23 Test Strip] hydrOXYzine HCL [Atarax] 25 mg PO TID PRN 7 Days #21 tab 04/08/23 Apixaban [Eliquis Starter Pack 5 - 10 mg PO DIRECTED 30 Days 10/10/23 (for VTE)] #1 each Allergies Allergy/AdvReac Type Severity Reaction Status Date / Time No Known Allergies Allergy Verified 10/10/23 22:26 Review of Systems ROS Other: All systems not noted in ROS Statement are negative. <Jose Daniel Eisenberg - Last Filed: 10/10/23 22:36> ROS Other: All systems not noted in ROS Statement are negative. <Pura Mederos - Last Filed: 10/11/23 00:45> ROS Statement: Those systems with pertinent positive or pertinent negative responses have been documented in the HPI. 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, non ischemic cardiomyopathy; DKA History of Any Multi-Drug Resistant Organisms: None Reported Past Surgical History: Ear Surgery, Tonsillectomy Past Anesthesia/Blood Transfusion Reactions: No Reported Reaction Past Psychological History: Anxiety, Depression, PTSD Smoking Status: Current every day smoker, Vaper Past Alcohol Use History: Occasional Past Drug Use History: Marijuana - Past Family History Father Family Medical History: Diabetes Mellitus Mother Family Medical History: Coronary Artery Disease (CAD) <Jose Daniel Eisenberg - Last Filed: 10/10/23 22:36> General Exam Limitations: no limitations <Jose Daniel Eisenberg - Last Filed: 10/10/23 22:36> Limitations: no limitations General appearance: alert, in no apparent distress Head exam: Present: atraumatic, normocephalic, normal inspection Respiratory exam: Present: normal lung sounds bilaterally. Absent: respiratory distress, wheezes, rales, rhonchi, stridor Cardiovascular Exam: Present: regular rate, normal rhythm, normal heart sounds. Absent: systolic murmur, diastolic murmur, rubs, gallop, clicks Extremities exam: Present: other (Tenderness, erythema, and swelling to the left upper extremity in the left biceps region. 2+ radial pulses.) Neurological exam: Present: alert, oriented X3, CN II-XII intact Psychiatric exam: Present: normal affect, normal mood <Pura Mederos - Last Filed: 10/11/23 00:45> - General Exam Comments Initial Comments: Visual Physical Exam Vital signs reviewed General: Well-appearing, nontoxic, no acute distress. Head: Normocephalic, atraumatic Eyes: PERRLA, EOMI ENT: Airway patent Chest: Nonlabored breathing Skin: No visual rash, normal skin tone Neuro: Alert and oriented 3 Musculoskeletal: Redness and swelling seen on the left upper arm (Jose Daniel Eisenberg) Course Vital Signs 10/10/23 10/11/23 22:17 00:21 Temperature 99 F 98.9 F Pulse Rate 97 62 Respiratory 18 18 Rate Blood Pressure 167/98 118/75 O2 Sat by Pulse 97 98 Oximetry Medical Decision Making <Jose Daniel Eisenberg - Last Filed: 10/10/23 22:36> - Radiology Data Radiology results: report reviewed, image reviewed <Pura Mederos - Last Filed: 10/11/23 00:45> - Medical Decision Making I performed the quick note portion of this visit, electronically signed Jose Daniel Eisenberg PA-C (Jose Daniel Eisenberg) This is a 32-year-old female who presents to the emergency department for left arm pain. Was pt. sent in by a medical professional or institution? @ -No Did you speak to anyone other than the patient for history? @ -No Did you review nursing and triage notes? @ -Yes, and I agree, it is accurate with regards to the patient's symptoms. Were old charts reviewed? @ -No Differential Diagnosis? @ -Differential Musculoskeletal Muscular strain, contusion, ligament sprain, fracture, arthritis, septic arthritis, bursitis, cellulitis, muscle spasm, nerve compression, DVT, arterial occlusion, herpes zoster, electrolyte abnormality, tumor.... This is not meant to be in all inclusive list EKG interpreted by me (3pts min.)? @ -Not obtained X-rays interpreted by me (1pt min.)? @ -Not obtained CT interpreted by me (1pt min.)? @ -Not obtained U/S interpreted by me (1pt. min.)? @ -Duplex ultrasound of the left upper extremity obtained. My interpretation identifies no evidence of DVT. What testing was considered but not performed? (CT, X-rays, U/S, labs)? Why? @ -None What meds were considered but not given? Why? @ -None Did you discuss the management of the patient with other professionals? @ -No Did you reconcile home meds? @ -No Was smoking cessation discussed for >3mins.? @ -I discussed smoking cessation for greater than 3 minutes. The risk of smoking were discussed with the patient including but not limited to risks of cancer, stroke, coronary artery disease and COPD. Also discussed with patient were multiple methods of quitting smoking. Lastly we discussed the financial cost of smoking. Was critical care preformed (if so, how long)? @ -No Were there social determinants of health that impacted care today? How? (Homelessness, low income, unemployed, alcoholism, drug addiction, transportation, low edu. Level, literacy, decrease access to med. care, [facility], rehab)? @ -No Was there de-escalation of care discussed even if they declined? (Discuss DNR or withdrawal of care, Hospice)? @ -No What co-morbidities impacted this encounter? (DM, HTN, Smoking, COPD, CAD, Cancer, CVA, Hep., AIDS, mental health diagnosis, sleep apnea, morbid obesity)? @ -DM, morbid obesity, smoking Was patient admitted / discharged? @ -Discharged. Duplex ultrasound of the left upper extremity obtained demonstrating a partially occlusive acute superficial venous thrombosis in the left cephalic vein. Findings reviewed with the patient. She was given prescription for naproxen and Keflex at [facility]. She is concerned that symptoms are getting worse and she has risk factors such as obesity and smoking increasing her risk for DVTs. We discussed that SVTs in the upper extremities are less common and recommendations regarding anticoagulation use for SVTs in the upper extremity are mixed. Patient requests to proceed given the worsening symptoms and risk factors. I was agreeable to giving her a prescription for an Eliquis starter pack. We discussed risks associated with blood thinner use as well and she expresses understanding. Advised close follow-up with her PCP. Patient discharged home in stable condition. Case discussed with ED attending Dr. Malhotra. Return precautions reviewed in depth, the patient is instructed to return to the emergency department with any new, worsening, or concerning symptoms. Patient verbalized understanding. Undiagnosed new problem with uncertain prognosis? @ -None Drug Therapy requiring intensive monitoring for toxicity (Heparin, Nitro, Insulin, Cardizem)? @ -None Were any procedures done? @ -None Diagnosis/symptom? @ -Left arm superficial venous thrombosis Acute, or Chronic, or Acute on Chronic? @ -Acute Uncomplicated (without systemic symptoms) or Complicated (systemic symptoms)? @ -Uncomplicated Side effects of treatment? @ -None Exacerbation, Progression, or Severe Exacerbation] @ -Not applicable Poses a threat to life or bodily function? @ -No (Pura Mederos) Disposition <Jose Daniel Eisenberg - Last Filed: 10/10/23 22:36> Is patient prescribed a controlled substance at d/c from ED?: No Time of Disposition: 23:59 <Pura Mederos - Last Filed: 10/11/23 00:45> Clinical Impression: Superficial venous thrombosis of left arm Disposition: HOME SELF-CARE Instructions (If sedation given, give patient instructions): Superficial Thrombophlebitis (ED) Additional Instructions: Return to the emergency department with any new, worsening, or concerning symptoms. Begin taking the Eliquis as prescribed for 30 days. You will need to follow-up with your primary care provider for reevaluation and likely a repeat ultrasound. Take the medication prescribed by [facility] yesterday as well. Prescriptions: Apixaban [Eliquis Starter Pack (for VTE)] 5 - 10 mg PO DIRECTED 30 Days #1 each Referrals: Aristides Torres MD [Primary Care Provider] - 1-2 days
--- NOTE | 2023-10-10 23:35 | US ---
EXAMINATION TYPE: US venous doppler duplex UE LT DATE OF EXAM: 10/10/2023 COMPARISON: NONE CLINICAL INDICATION: Female, 32 years old with history of pain, swelling; Patient states left arm swe lling for a few days. US yesterday at different hospital that was negative for DVT. Not on thinners SIDE PERFORMED: Left *Limited exam due to body habitus. Unable to visualize left ulnar veins. Left Arm: There are echoes seen within the cephalic vein with small amounts of color doppler flow. Th is vein is not completely compressible. Grayscale, color doppler, spectral doppler imaging performed of the deep veins of the left upper extr emity. IMPRESSION: Some partially occlusive likely acute superficial venous thrombosis in the left cephalic vein is note d.
[2023-10-11 00:23] VITALS: BP 118/75; PULSE 62; TEMP 98.9
== END 2023-10-11 00:22 | disposition home or self-care (01) ==
LOC: EC 22:03
DX: R22.9 Localized swelling, mass and lump, unspecified
CPT/HCPCS: 99283

== ENCOUNTER → 2023-12-01 | Outpatient (CLI) | payer OTHER ==
[2023-12-01 17:14] LABS: Glucose 240 mg/dL (70-110)
[2023-12-01 21:54] LABS: C-Peptide <0.02 ng/mL (0.81-3.85)
== END | disposition home or self-care (01) ==
LOC: LABWHC1 10:02
PROVIDERS: ATTEND Internal Medicine
DX: E10.65 Type 1 diabetes mellitus with hyperglycemia (principal)
CPT/HCPCS: 36415; 82947; 83036; 84681